=== PATIENT | female | born 1940 | race Caucasian/White ===

== ENCOUNTER 2022-05-12 10:33 | Outpatient (CLI) | payer MEDICARE, BC, SELFPAY ==
[2022-05-12 22:15] LABS: Creatinine Urine 85.5 mg/dL
[2022-05-12 22:17] LABS: Albumin* 4.4 g/dL (3.3-5.0)
[2022-05-12 22:18] LABS: Chloride* 105 mmol/L (96-114); Microalbumin Creatinine Ratio 10 mg/g (0-30); Microalbumin Urine < 1 mg/dL; Potassium* 4.8 mmol/L (3.6-5.1); Sodium* 139 mmol/L (135-149)
[2022-05-12 22:20] LABS: Bilirubin Total* 0.6 mg/dL (0.1-1.5); Carbon Dioxide* 23 mmol/L (20-32); Cholesterol* 208 mg/dL (90-199); Creatinine* 0.8 mg/dL (0.5-1.5); Estimated Glomerular Filt Rate 75 ml/min
[2022-05-12 22:21] LABS: Alanine Aminotransferase* 51 U/L (4-35); Alkaline Phosphatase* 85 U/L (40-150); Aspartate Amino Transferase* 65 U/L (12-35); Blood Urea Nitrogen* 12 mg/dL (7-30); Calcium* 9.3 mg/dL (8.4-10.6); Glucose* 81 mg/dL (60-115); Magnesium* 1.3 mg/dL (1.5-2.6); Triglycerides* 154 mg/dL (40-149)
[2022-05-12 22:22] LABS: HDL Cholesterol* 67 mg/dL (>=50); LDL Cholesterol Calculated 110 mg/dL (<100)
[2022-05-12 23:18] LABS: Vitamin B12* 428 pg/mL (243-894)
[2022-05-12 23:59] LABS: Free T4 Free Thyroxine* 0.91 ng/dL (0.70-1.85)
== END 2022-05-12 10:34 | disposition home or self-care (01) ==
PROVIDERS: PCP Family Medicine; Visit Provider Family Medicine
DX: R42 Dizziness and giddiness (principal); E78.5 Hyperlipidemia, unspecified; F19.90 Other psychoactive substance use, unspecified, uncomplicated; I10 Essential (primary) hypertension; R41.82 Altered mental status, unspecified; R79.0 Abnormal level of blood mineral; R53.83 Other fatigue; R73.03 Prediabetes
CPT/HCPCS: 80053; 80061; 82043; 82570; 82607; 83735; 84439; 84443

== ENCOUNTER 2022-05-24 16:56 | Outpatient (CLI) | payer MEDICARE, BC, SELFPAY ==
--- NOTE | 2022-05-24 17:00 | CRLHL7_ITS ---
For Patients: As a result of the Century Cures Act, medical imaging exams and procedure reports are released immediately into your electronic medical record. You may view this report before your referring provider. If you have questions, please contact your health care provider. CLINICAL HISTORY: VERTIGO TECHNIQUE: The carotid circulations and the vertebral arteries in the neck were examined with kilgore-scale ultrasound, color-flow and Doppler spectral analysis. Degrees of stenosis were determined using SRU 2002 Consensus Panel Criteria. FINDINGS: Sonographic images demonstrate mild bilateral atherosclerotic plaque formation without suspicious soft tissue mass. There was antegrade blood flow demonstrated within the vertebral arteries and the subclavian arteries demonstrated a normal triphasic waveform. The spectral Doppler tracings of the common carotid, internal and external carotid arteries demonstrate no abnormal turbulence or spectral broadening. There was no significant elevation of peak systolic blood flow which would indicate a hemodynamically-significant stenosis by SRU criteria. The ICA/CCA peak systolic velocity ratio measures 1.7 on the right and 0.9 on the left. IMPRESSION: Less than 50 percent stenosis of the internal carotid arteries bilaterally. Dictated by Schuyler Mancuso MD @ 05/26/2022 8:52:47 AM (Electronically Signed)
--- NOTE | 2022-05-24 18:00 | CRLHL7_ITS ---
For Patients: As a result of the Century Cures Act, medical imaging exams and procedure reports are released immediately into your electronic medical record. You may view this report before your referring provider. If you have questions, please contact your health care provider. INDICATION: Altered mental status. TECHNIQUE: Noncontrast CT images acquired through the brain. COMPARISON: CT brain 05/02/2020. FINDINGS: Prominence of the ventricles and sulci compatible with [id number] diffuse cerebral volume loss. There is mild cerebellar volume loss. No mass effect or midline shift. The kilgore-white differentiation is maintained. No acute intracranial hemorrhage or pathologic extra-axial fluid collection. Scattered hypoattenuation in the supratentorial white matter, suggestive of mild chronic microvascular ischemic changes. Intracranial atherosclerotic calcifications. The globes are symmetric. Mucosal thickening and air-fluid level severely opacify the left maxillary sinus. There is left maxillary sinus mucoperiosteal wall thickening. Mild to moderate mucosal thickening in the visualized right maxillary sinus. The mastoid air cells are clear. IMPRESSION: 1. No acute intracranial hemorrhage or mass effect. 2. Air-fluid level and mucosal thickening severely opacify the left maxillary sinus and raise the possibility of acute sinusitis. There is also sequelae of chronic left maxillary sinusitis. Please note that all CT scans at this facility use dose modulation, iterative reconstruction, and/or weight-based dosing when appropriate to reduce radiation dose to as low as reasonably achievable. Dictated by Fredis Mohr MD @ 05/24/2022 5:57:24 PM (Electronically Signed)
== END 2022-05-24 16:57 | disposition home or self-care (01) ==
LOC: US 16:57
PROVIDERS: PCP Family Medicine; Visit Provider Family Medicine
DX: R42 Dizziness and giddiness (principal); I65.23 Occlusion and stenosis of bilateral carotid arteries; R41.82 Altered mental status, unspecified; J32.0 Chronic maxillary sinusitis
CPT/HCPCS: 70450; 93880

== ENCOUNTER 2022-09-15 11:16 | Outpatient (CLI) | payer MEDICARE, BC, SELFPAY | END 2022-09-15 11:17 | disposition home or self-care (01) | PROVIDERS: PCP Family Medicine; Visit Provider Family Medicine | DX: Z00.00 Encounter for general adult medical examination without abnormal findings (principal); R73.03 Prediabetes; I10 Essential (primary) hypertension; E78.5 Hyperlipidemia, unspecified; F41.9 Anxiety disorder, unspecified; Z01.818 Encounter for other preprocedural examination | CPT/HCPCS: 80053; 83735; 84439; 84443 ==

== ENCOUNTER 2023-02-01 09:27 | Outpatient (CLI) | payer MEDICARE, BC, SELFPAY | END 2023-02-01 09:28 | disposition home or self-care (01) | PROVIDERS: PCP Family Medicine; Visit Provider Family Medicine | DX: F19.90 Other psychoactive substance use, unspecified, uncomplicated (principal); R63.4 Abnormal weight loss; I10 Essential (primary) hypertension; M79.609 Pain in unspecified limb; E78.5 Hyperlipidemia, unspecified; R79.0 Abnormal level of blood mineral | CPT/HCPCS: 80053; 83735; 83880; 84425; 87086 ==

== ENCOUNTER 2023-02-01 14:28 | Outpatient (CLI) | payer MEDICARE, BC, SELFPAY ==
--- NOTE | 2023-02-01 15:00 | CRLHL7_ITS ---
For Patients: As a result of the Century Cures Act, medical imaging exams and procedure reports are released immediately into your electronic medical record. You may view this report before your referring provider. If you have questions, please contact your health care provider. INDICATION: REDNESS AND PAIN COMPARISON: none TECHNIQUE: A compression venous ultrasound exam was performed of both lower extremities using kilgore scale imaging, color Doppler and spectral Doppler analysis. FINDINGS: Sonographic imaging of the lower extremities demonstrates normal compressibility and color Doppler venous blood flow within the common femoral, deep femoral, and there is no superficial clot. Within the thighs the femoral veins are patent and compressible. At a lower level the popliteal and posterior tibial veins also show normal compressibility and color Doppler venous blood flow. IMPRESSION: No evidence of deep vein thrombosis within either the left or right lower extremity. Dictated by Schuyler Mancuso MD @ 02/02/2023 8:10:27 AM (Electronically Signed)
== END 2023-02-01 14:29 | disposition home or self-care (01) ==
PROVIDERS: PCP Family Medicine; Visit Provider Family Medicine
DX: M79.89 Other specified soft tissue disorders (principal); I10 Essential (primary) hypertension; N39.0 Urinary tract infection, site not specified; E66.01 Morbid (severe) obesity due to excess calories; R73.03 Prediabetes
CPT/HCPCS: 80053; 83735; 83880; 84425; 87086; 93970

== ENCOUNTER 2023-02-27 12:52 | Outpatient (CLI) | payer MEDICARE, BC, SELFPAY | END 2023-02-27 12:53 | disposition home or self-care (01) | LOC: US 12:53 | PROVIDERS: PCP Family Medicine; Visit Provider Family Medicine | DX: M79.89 Other specified soft tissue disorders (principal) | CPT/HCPCS: 93924 ==

== ENCOUNTER 2023-03-16 11:16 | Outpatient (CLI) | payer MEDICARE, BC, SELFPAY | END 2023-03-16 11:17 | disposition home or self-care (01) | PROVIDERS: PCP Family Medicine; Visit Provider Family Medicine | DX: R63.4 Abnormal weight loss (principal); I10 Essential (primary) hypertension; I87.2 Venous insufficiency (chronic) (peripheral); I73.00 Raynaud's syndrome without gangrene; Z13.0 Encounter for screening for diseases of the blood and blood-forming organs and certain disorders involving the immune mechanism; F10.90 Alcohol use, unspecified, uncomplicated; F41.9 Anxiety disorder, unspecified | CPT/HCPCS: 82728; 85610 ==

== ENCOUNTER 2023-06-08 13:00 | Outpatient (CLI) | payer MEDICARE, BC, SELFPAY | END 2023-06-08 13:01 | disposition home or self-care (01) | LOC: NFLDREF 06-09 07:50 | PROVIDERS: PCP Family Medicine; Referring Provider Family Medicine; Visit Provider Family Medicine | DX: R79.89 Other specified abnormal findings of blood chemistry (principal); R63.4 Abnormal weight loss; E03.9 Hypothyroidism, unspecified; I10 Essential (primary) hypertension | CPT/HCPCS: 80053; 82043; 82570; 82728; 84439; 84443 ==

== ENCOUNTER 2023-10-22 12:07 | Inpatient (IN) | payer MEDICARE, BC, SELFPAY ==
[2023-10-22] VITALS (24 sets, daily range): BP systolic 86–108; BP diastolic 47–80; PULSE 71–82; RESP 16–22; TEMP 36.2–37.4; O2SAT 93–99; BMI 19.1; BMI 20.2
--- NOTE | 2023-10-22 12:35 | ED_ITS ---
HPI - General Adult General Chief complaint: Weakness Stated complaint: Elevated WBC, low BP Time Seen by Provider: 10/22/23 12:12 History of Present Illness HPI narrative: Patient is a 82 year white female who has had 3 day history of night sweats, was seen in the clinic today and had positive urinalysis and white count is in the 14,000 range. She lives independently in [place], has doctor within [facility] in [place]. She has had UTIs in the past, but does not have any urinary frequency or hematuria. She does not have any severe back pain but she has reported night sweats and severe weakness. Her family members that she lives near are traveling this week. She has had UTIs in the past. She has no cough. Her chart is reviewed. Related Data Home Medications ?Medication ?Instructions ?Recorded ?Confirmed atenolol 25 mg tablet 25 mg PO DAILY 10/22/23 10/22/23 spironolactone 25 mg tablet 25 mg PO DAILY 10/22/23 10/22/23 vitamin B complex-folic acid 0.4 1 tab PO DAILY 10/22/23 10/22/23 mg tablet (B Complex 1 (with folic acid)) Previous Rx's ?Medication ?Instructions ?Recorded food supplemt, lactose-reduced 1 ea PO TID #5,688 mL 02/01/23 (Ensure Active Protein-Muscle oral liquid) gemfibrozil 600 mg tablet 600 mg PO DAILY #90 tabs 05/29/23 omeprazole 40 mg capsule,delayed 40 mg PO DAILY #90 caps 05/29/23 release Allergies Allergy/AdvReac Type Severity Reaction Status Date / Time fenofibrate Allergy Intermediate elevated Verified 10/22/23 10:07 transaminases potassium chloride Allergy Intermediate pruritis Verified 10/22/23 10:07 cefdinir Allergy Unknown decreased Verified 10/22/23 10:07 appetite, weight loss, diarrhea losartan AdvReac Intermediate pruritis Verified 10/22/23 10:07 Sulfamethoxazole / AdvReac Unknown nausea and Uncoded 10/22/23 10:07 trimethoprim vomiting Review of Systems Status of ROS: Reports: 6 or more systems reviewed and unremarkable except as noted in History and below [facility] Medical History History of gout ?Z87.39 - Personal history of other diseases of the musculoskeletal system and connective tissue (ICD-10) History of colonic polyps (03/18/13) ?Z86.010 - Personal history of colonic polyps (ICD-10) Surgical History History of wisdom tooth extraction (03/18/13) ?K08.409 - Partial loss of teeth, unspecified cause, unspecified class (ICD- 10) History of hysterectomy (03/18/13) ?Z90.710 - Acquired absence of both cervix and uterus (ICD-10) History of appendectomy (03/18/13) ?Z90.49 - Acquired absence of other specified parts of digestive tract (ICD- 10) Family History Mother Breast cancer, Onset Age: 80 Daughter Breast cancer Father Myocardial infarction, Onset Age: 60 Other Empyema Social History Narrative: does not use illicit drugs former smoker occasional alcohol consumption What is your current living situation?: I presently have a place to live Problems where you live: no known problems In the past 12 mos, have been you worried that your food would run out before you had money to buy more?: never true In the past 12 mos, the food you bought just didn't last and you didn't have money to buy more?: never true Smoking Status: Never smoker How often does anyone, including family, friends and others, physically hurt you : How often does anyone, including family, friends and others, insult or talk down to you: How often does anyone, including family, friends and others, threaten you with harm: How often does anyone, including family, friends and others, scream or curse at you: Little interest or pleasure in doing things: not at all Feeling down, depressed, or hopeless: several days Exam Narrative: Exam Narrative: Objective: Patient has a lower systolic blood pressure but her pulse is in the 80 range respiratory rate normal and she is afebrile. Her O2 sat is 98% on room air. HEENT is unremarkable other than dry mucous membranes in the mouth she is alert orient x3 noncyanotic she does appear quite weak Neck is supple Chest clear Heart rhythm regular 2 a systolic murmur murmur occasional ectopic beat noted Abdomen benign soft nontender Negative CVA tenderness Patient is very weak to try and set up I had to help her quite a bit Extremities are no edema, she does have discoloration or lower extremities consistent with vascular type stasis but no edema. Neurologic grossly nonfocal Const: Vital Signs, click to edit/add: Vital Signs - 24 hr 10/22/23 12:13 10/22/23 12:32 10/22/23 12:50 Temperature 97.1 F L Pulse Rate 80 80 Pulse Rate [Pulse Oximeter] 80 Respiratory Rate 16 Blood Pressure Blood Pressure [Ri ght Upper Arm] 92/53 L Pulse Oximetry 98 99 96 Oxygen Delivery Me thod Room Air 10/22/23 13:00 10/22/23 13:30 10/22/23 13:50 Temperature Pulse Rate 77 78 77 Pulse Rate [Pulse Oximeter] Respiratory Rate Blood Pressure 94/48 L Blood Pressure [Ri ght Upper Arm] Pulse Oximetry 95 94 96 Oxygen Delivery Me thod 10/22/23 14:00 10/22/23 14:02 10/22/23 14:03 Temperature Pulse Rate 77 76 77 Pulse Rate [Pulse Oximeter] Respiratory Rate Blood Pressure 94/51 L Blood Pressure [Ri ght Upper Arm] Pulse Oximetry 94 94 93 Oxygen Delivery Me thod Course Vital Signs Vital signs: Initial Vital Signs Temperature 97.1 F L 10/22/23 12:13 Temperature Source Temporal Artery Scan 10/22/23 12:13 Pulse Rate 80 10/22/23 12:13 Respiratory Rate 16 10/22/23 12:13 Blood Pressure 92/53 L 10/22/23 12:13 Blood Pressure Mean 66 L 10/22/23 12:13 Blood Pressure Position Sitting 10/22/23 12:13 Pulse Oximetry 98 10/22/23 12:13 Oxygen Delivery Method Room Air 10/22/23 12:13 Vital Signs Temperature 97.1 F L 10/22/23 12:13 Pulse Rate 80 10/22/23 12:13 Respiratory Rate 16 10/22/23 12:13 Blood Pressure 92/53 L 10/22/23 12:13 Pulse Oximetry 98 10/22/23 12:13 Oxygen Delivery Method Room Air 10/22/23 12:13 Temperature 97.1 F L 10/22/23 12:13 Pulse Rate 77 10/22/23 14:03 Respiratory Rate 16 10/22/23 12:13 Blood Pressure 94/51 L 10/22/23 14:02 Pulse Oximetry 93 10/22/23 14:03 Oxygen Delivery Method Room Air 10/22/23 12:13 Medications Administered Medications: Discontinued Medications Generic Name Dose Route Start Last Admin Trade Name Pillo PRN Reason Stop Dose Admin Sodium Chloride 500 mls @ 500 mls/hr 10/22/23 12:32 10/22/23 13:45 0.9 % Sodium Chloride 500 Ml IV 10/22/23 13:31 Infused .Q1H ONE Infusion Piperacillin Sod/Tazobactam 100 mls @ 200 mls/hr 10/22/23 12:32 10/22/23 13:50 Sod 3.375 gm/ Sodium Chloride IVPB 10/22/23 12:33 200 mls/hr ONCE ONE Administration Sodium Chloride 500 mls @ 500 mls/hr 10/22/23 12:58 10/22/23 13:50 0.9 % Sodium Chloride 500 Ml IV 10/22/23 13:57 Infused .Q1H ONE Infusion Medical Decision Making [facility] Narrative Medical decision making narrative: [age] year white female with a history of several days of night sweats and chills with a positive urinalysis. She does not have flank pain presently she does not tachycardic and does not have a fever, but her blood pressures 90 systolic. I do not think she needs full sepsis treatment but I would do IV fluid, IV antibiotic in the form of Zosyn, she has a cephalosporin allergy, and will check labs electrolytes blood cultures she has a urine and urinalysis done from the clinic. She will need admission the hospital given her weakness. May need physical therapy assessment prior to discharge. Will discuss with the hospitalist. Patient certainly could have possible sepsis with urine being a source of infection. But this point does not appear to be a septic situation but would treat with antibiotics and perhaps less than the full bolus of fluid given her age and health situation Lab Data Labs: Lab Results 10/22/23 10/22/23 Range/Units 12:50 13:08 WBC 15.76 H (4.50-11.00) K/uL RBC 3.40 L (4.00-5.20) m/uL Hgb 11.9 L (12.0-16.0) gm/dL Hct 33.1 (33.0-51.0) % MCV 97 (80-100) fL MCH 35 H (26-34) pg MCHC 36 (32-36) gm/dL RDW Coeff of Michelle 12.1 (11.5-15.5) % Plt Count 101 L (140-440) K/uL Neut % (Auto) 92.8 H (42.0-72.0) % Lymph % (Auto) 1.6 L (20-44) % [place] % (Auto) 5.1 (0.0-11.0) % Eos % (Auto) 0.0 (0.0-7.0) % Baso % (Auto) 0.1 (0.0-3.0) % Neut # (Auto) 14.60 H (1.7-7.0) K/uL Lymph # (Auto) 0.30 L (0.90-2.90) K/uL [place] # (Auto) 0.80 (0.00-0.90) K/UL Eos # (Auto) 0.00 (0.00-0.50) K/uL Baso # (Auto) 0.00 (0.00-0.30) K/uL Abs Immat Gran (auto) 0.10 (0.00-0.30) K/uL Imm/Tot Granulo (auto) 0.4 % Sodium 127 L (135-149) mmol/L Potassium 3.6 (3.6-5.1) mmol/L Chloride 96 (96-114) mmol/L Carbon Dioxide 16 L (20-32) mmol/L Anion Gap 15 (7-15) mEq/L BUN 44 H (7-30) mg/dL Creatinine 1.4 (0.5-1.5) mg/dL Estimated Creat Clear 26.39 Estimated GFR 38 ml/min Glucose 152 H (60-115) mg/dL Lactate 2.3 H (0.5-1.9) mmol/L Calcium 9.1 (8.4-10.6) mg/dL Total Bilirubin 1.0 (0.1-1.5) mg/dL Direct Bilirubin 0.5 (0.0-0.5) mg/dL AST 78 H (12-35) U/L ALT 47 H (4-35) U/L Alkaline Phosphatase 59 (40-150) U/L C-Reactive Protein 14.4 H (0.5-1.0) mg/dL Total Protein 6.8 (6.0-8.3) g/dL Albumin 4.3 (3.3-5.0) g/dL Discharge Plan Discharge Clinical Impression: Urinary tract infection, Weakness Patient Disposition: Admitted As Observation
[2023-10-22 13:01] LABS: Basophils Percent Auto 0.1 % (0.0-3.0); Hematocrit 33.1 % (33.0-51.0); Hemoglobin* 11.9 gm/dL (12.0-16.0); Immature Granulocytes Pct Auto 0.4 %; Lymphocytes Percent Auto 1.6 % (20-44); Mean Corpuscular HGB Conc 36 gm/dL (32-36); Mean Corpuscular Hemoglobin 35 pg (26-34); Mean Corpuscular Volume 97 fL (80-100); Monocytes Percent Auto 5.1 % (0.0-11.0); Neutrophils Percent Auto 92.8 % (42.0-72.0); Platelet Count* 101 K/uL (140-440); RDW Coefficient of Variation % 12.1 % (11.5-15.5); White Blood Count* 15.76 K/uL (4.50-11.00)
[2023-10-22] MEDS: 0.9 % SODIUM CHLORIDE 500 ML 500 ML IV ×2 (13:10→13:15)
[2023-10-22 13:14] LABS: Lactate* 2.3 mmol/L (0.5-1.9)
[2023-10-22 13:18] LABS: Slide Review Reflex No
[2023-10-22 13:19] LABS: Chloride* 96 mmol/L (96-114); Potassium* 3.6 mmol/L (3.6-5.1); Sodium* 127 mmol/L (135-149)
[2023-10-22 13:21] LABS: Albumin* 4.3 g/dL (3.3-5.0)
[2023-10-22 13:22] LABS: Creatinine* 1.4 mg/dL (0.5-1.5); Est. Creatinine Clearance* 26.39; Estimated Glomerular Filt Rate 38 ml/min
[2023-10-22 13:23] LABS: Anion Gap 15 mEq/L (7-15); Aspartate Amino Transferase* 78 U/L (12-35); Bilirubin Direct* 0.5 mg/dL (0.0-0.5); Blood Urea Nitrogen* 44 mg/dL (7-30); Calcium* 9.1 mg/dL (8.4-10.6); Carbon Dioxide* 16 mmol/L (20-32); Glucose* 152 mg/dL (60-115); Total Protein* 6.8 g/dL (6.0-8.3)
[2023-10-22 13:24] LABS: Alanine Aminotransferase* 47 U/L (4-35); Alkaline Phosphatase* 59 U/L (40-150)
[2023-10-22 13:37] LABS: C Reactive Protein* 14.4 mg/dL (0.5-1.0)
[2023-10-22] MEDS: PIPERACILLIN/TAZOBACTAM 3.375 GM in 0.9 % SODIUM CHLORIDE Mini-bag 100 ML IVPB (13:50)
--- NOTE | 2023-10-22 14:48 | P.IMHP_ITS ---
Hospitalist- H&P: HPI History of Present Illness Date Seen: 10/22/23 Chief complaint: Elevated WBC, low BP Narrative: ADMISSION HISTORY AND PHYSICAL - HOSPITALIST Chief Complaint: Weakness, chills HPI: Tray is an 82-year-old white female who presents from urgent care to our ER for 3 days of an acute illness. She said it started with an acute vomiting and diarrhea episode. This was 3 days prior to presentation. She felt weak and exhausted. Initially she thought it was from left over center Fridge. However in the next 2 days she continued to have chills and weakness. No fever. No blood in her stool or vomit. No rash. No recent travel. No sick contacts. This morning she presented to urgent care and was noted to have an acute UTI with an elevated white blood cell count and low blood pressure. She was then sent to the ER. ER COURSE: Fluids, antibiotics, labs. Outlined below. Hospital medicine was asked to admit for early sepsis, urinary source, weakness, advanced age. CODE STATUS: FULL CODE EMERGENCY CONTACT PLAN: Name Mariama Gallardo Rel To Pat Daughter I've updated the PFSH, medications and allergies in the Expanse tabs. INVESTIGATIONS: LABS/MICRO/ECG/IMAGING Hypotensive, presenting blood pressure 82/49 and 94/51. Map is now 65. She has had 2 500 mL boluses Afebrile Respiratory rate 18 Pulse ox 93-94% on room air Weight 55.1 kilos CBC reflects a white blood cell count of 15.76, 92.8% neutrophils Hemoglobin 11.9, her baseline seems to be 12-13 Platelets 101, previously 215 Mild hyponatremia at 1:27 a.m.. Creatinine has bumped from 0.8-1.4. Her BUN is 44. She is mildly acidotic at 16 Lactic acid 2.3 CRP 14.4 Mild bump in her LFTs which are not new. UA is cloudy. 2+ protein, 1+ blood. 1+ bilirubin. Negative nitrite, however 3+ leukocyte esterase micro hematuria. Greater than 100 white blood cells per high-power field noted. Moderate bacteria. Negative respiratory swab Blood culture x2, urine culture all pending. No imaging prior to arrival on the floor. REVIEW OF SYSTEMS: 12-point ROS completed with patient and negative unless otherwise stated in HPI or below. PHYSICAL EXAM: CONSTITUTIONAL: Conversive, good historian. Good insight. No evidence of cognitive impairment. VITAL SIGNS: see record. HEENT: Normocephalic, atraumatic. PERRL, EOMI, conjunctivae pink, no scleral icterus. Ears and nose externally normal. Pharynx normal. NECK: No JVD. No carotid bruit, no thyromegaly, no adenopathy. CHEST: Clear to auscultation bilaterally HEART: S1 and S2 normal. No harsh murmurs. No edema. MUSCULOSKELETAL: No gross joint deformity or swelling. NEURO: Cranial nerves intact. Grossly intact. No asymmetric findings. SKIN: No rashes, petechiae, concerning changes PSYCHIATRIC: Euthymic. ADMIT TO MEDSURG: FLOOR CARE DVT: Lovenox GI: PO intake Time spent: Today I spent 75 minutes seeing the patient, discussing the patient with ER staff, reviewing Expanse and EPIC notes/diagnostics, discussing the care plan with our care time that includes social work, PT/OT, pharmacy, RT, longterm and documenting my impressions and plan in the medical record. [facility] Medical History (Updated 10/22/23 @ 15:59 by Fransisca Mott MD) Venous stasis dermatitis of both lower extremities ?I87.2 - Venous insufficiency (chronic) (peripheral) (ICD-10) Raynaud's phenomenon ?I73.00 - Raynaud's syndrome without gangrene (ICD-10) Prediabetes ?R73.03 - Prediabetes (ICD-10) Osteopenia ?M85.80 - Other specified disorders of bone density and structure, unspecified site (ICD-10) Mass of vulva ?N90.89 - Other specified noninflammatory disorders of vulva and perineum (ICD-10) Compression fracture of T6 vertebra ?S22.050A - Wedge compression fracture of T5-T6 vertebra, initial encounter for closed fracture (ICD-10) Calculus of kidney ?N20.0 - Calculus of kidney (ICD-10) Basal cell carcinoma (BCC) ?C44.91 - Basal cell carcinoma of skin, unspecified (ICD-10) Atherosclerosis of abdominal aorta ?I70.0 - Atherosclerosis of aorta (ICD-10) History of gout ?Z87.39 - Personal history of other diseases of the musculoskeletal system and connective tissue (ICD-10) History of colonic polyps (03/18/13) ?Z86.010 - Personal history of colonic polyps (ICD-10) Surgical History History of wisdom tooth extraction (03/18/13) ?K08.409 - Partial loss of teeth, unspecified cause, unspecified class (ICD-1 0) History of hysterectomy (03/18/13) ?Z90.710 - Acquired absence of both cervix and uterus (ICD-10) History of appendectomy (03/18/13) ?Z90.49 - Acquired absence of other specified parts of digestive tract (ICD- 10) Family History Mother Breast cancer, Onset Age: 80 Daughter Breast cancer Father Myocardial infarction, Onset Age: 60 Other Empyema Social History Narrative: does not use illicit drugs former smoker occasional alcohol consumption What is your current living situation?: I presently have a place to live Problems where you live: no known problems In the past 12 mos, have been you worried that your food would run out before you had money to buy more?: never true In the past 12 mos, the food you bought just didn't last and you didn't have money to buy more?: never true Smoking Status: Never smoker How often does anyone, including family, friends and others, physically hurt you : How often does anyone, including family, friends and others, insult or talk down to you: How often does anyone, including family, friends and others, threaten you with harm: How often does anyone, including family, friends and others, scream or curse at you: Little interest or pleasure in doing things: not at all Feeling down, depressed, or hopeless: several days Meds Home Medications and Allergies Home Medications ?Medication ?Instructions ?Recorded ?Confirmed ?Type atenolol 25 mg tablet 25 mg PO DAILY 10/22/23 10/22/23 History spironolactone 25 mg tablet 25 mg PO DAILY 10/22/23 10/22/23 History vitamin B complex-folic acid 0.4 1 tab PO DAILY 10/22/23 10/22/23 History mg tablet (B Complex 1 (with folic acid)) Allergies Allergy/AdvReac Type Severity Reaction Status Date / Time fenofibrate Allergy Intermediate elevated Verified 10/22/23 10:07 transaminases potassium chloride Allergy Intermediate pruritis Verified 10/22/23 10:07 cefdinir Allergy Unknown decreased Verified 10/22/23 10:07 appetite, weight loss, diarrhea losartan AdvReac Intermediate pruritis Verified 10/22/23 10:07 Sulfamethoxazole / AdvReac Unknown nausea and Uncoded 10/22/23 10:07 trimethoprim vomiting Exam Const: Vital Signs, click to edit/add: Vital Signs - 24 hr 10/22/23 12:13 10/22/23 12:32 10/22/23 12:50 Temperature 97.1 F L Pulse Rate 80 80 Pulse Rate [Left R adial] Pulse Rate [Pulse Oximeter] 80 Respiratory Rate 16 Blood Pressure Blood Pressure [Ri ght Arm] Blood Pressure [Ri ght Upper Arm] 92/53 L Pulse Oximetry 98 99 96 Oxygen Delivery Me thod Room Air 10/22/23 13:00 10/22/23 13:30 10/22/23 13:50 Temperature Pulse Rate 77 78 77 Pulse Rate [Left R adial] Pulse Rate [Pulse Oximeter] Respiratory Rate Blood Pressure 94/48 L Blood Pressure [Ri ght Arm] Blood Pressure [Ri ght Upper Arm] Pulse Oximetry 95 94 96 Oxygen Delivery Me thod 10/22/23 14:00 10/22/23 14:02 10/22/23 14:03 Temperature Pulse Rate 77 76 77 Pulse Rate [Left R adial] Pulse Rate [Pulse Oximeter] Respiratory Rate Blood Pressure 94/51 L Blood Pressure [Ri ght Arm] Blood Pressure [Ri ght Upper Arm] Pulse Oximetry 94 94 93 Oxygen Delivery Me od 10/22/23 14:32 Temperature 97.7 F Pulse Rate Pulse Rate [Left R adial] 76 Pulse Rate [Pulse Oximeter] Respiratory Rate 18 Blood Pressure Blood Pressure [Ri ght Arm] 99/56 L Blood Pressure [Ri ght Upper Arm] Pulse Oximetry 93 Oxygen Delivery Me thod Room Air Hospitalist - H&P: Result Labs Labs: Short CBC 10/22/23 Range/Units 12:50 WBC 15.76 H (4.50-11.00) K/uL Hgb 11.9 L (12.0-16.0) gm/dL Hct 33.1 (33.0-51.0) % Plt Count 101 L (140-440) K/uL BMP 10/22/23 12:50 Sodium 127 L Potassium 3.6 Chloride 96 Carbon Dioxide 16 L BUN 44 H Creatinine 1.4 Glucose 152 H Calcium 9.1 Liver Function 10/22/23 Range/Units 12:50 Total Bilirubin 1.0 (0.1-1.5) mg/dL Direct Bilirubin 0.5 (0.0-0.5) mg/dL AST 78 H (12-35) U/L ALT 47 H (4-35) U/L Alkaline Phosphatase 59 (40-150) U/L Albumin 4.3 (3.3-5.0) g/dL Assessment and Plan Assessment and plan (1) Sepsis: Problem comment: While the vitals only met one criteria for sepsis (blood pressure), the UTI with a MAP <65, elevated lactate, low platelets all indicate sepsis. -IV abx, fluids, q30 min blood pressures w/close monitoring. Status: Acute (2) Weakness: Problem comment: assoc with acute infection. Status: Acute (3) Urinary tract infection: Problem comment: UA indicates infection Culture both blood and urine pending Status: Acute (4) Weight loss, non-intentional: Status: Acute (5) Alcohol use disorder: Problem comment: daily wine drinking >2 glasses Status: Acute (6) Recurrent urinary tract infection: Status: Acute (7) Hypertension: Problem comment: hold atenolol and cozaar until sepsis clears Status: Acute (8) Hyperlipidemia: Problem comment: statin and lopid - ok to continue Status: Acute (9) Gastroesophageal reflux disease: Problem comment: continue PPI Status: Acute (10) Anxiety: Problem comment: monitor; no meds Status: Acute
--- NOTE | 2023-10-22 15:20 | CRLHL7_ITS ---
For Patients: As a result of the Century Cures Act, medical imaging exams and procedure reports are released immediately into your electronic medical record. You may view this report before your referring provider. If you have questions, please contact your health care provider. Indication Sepsis Technique One view(s) of the chest Comparison None Findings The cardiomediastinal silhouette and pulmonary vasculature are unremarkable. There is no focal airspace consolidation, pleural effusion, or pneumothorax. No displaced fractures. Impression No acute cardiopulmonary process. Dictated by Quincy Maier MD @ 10/22/2023 4:03:01 PM (Electronically Signed)
[2023-10-22 15:41] LABS: INR 1.04 (0.91-1.10); Prothrombin Time 14.2 Seconds
[2023-10-22 15:42] LABS: Magnesium* 1.3 mg/dL (1.5-2.6)
[2023-10-22 15:55] LABS: HCO3 VBG 19 mmol/L (21-28); PCO2 VBG 33 mmHG (40-50); PO2 VBG < 30.1 mmHG (25-47); pH VBG 7.357 (7.32-7.43)
[2023-10-22 16:07] LABS: Lactate* 1.4 mmol/L (0.5-1.9)
[2023-10-22 16:31] LABS: Troponin I* 0.02 ng/mL (0.01-0.04)
[2023-10-22] MEDS: ENOXAPARIN 30 MG/0.3ML INJ SUBCUT (16:52)
[2023-10-22] MEDS: MAGNESIUM IV 4 GM/100 ML PIGGYBACK IVPB (16:52)
[2023-10-22] MEDS: LACTATED RINGERS 1000 ML 1,000 ML 125 ML IV (17:16)
[2023-10-22] MEDS: LACTOBACILLUS ACIDOPHILUS 1 TABLET 1 TAB PO (17:31)
--- NOTE | 2023-10-22 18:28 | PC.NURSE ---
admit. pt is pleasant and alert x4. no pain. she has been nauseated and vomiting. chills. she has a UTI. BP are low and IV fluids and antibiotics given. she is getting IV magnesium, she is up with SBA. IV is patent. she is eating, drinking and voiding. she has a brief on. no nausea since admission. will monitor/
[2023-10-23] MEDS: LACTATED RINGERS 1000 ML 1,000 ML 125 ML IV (02:13)
[2023-10-23] MEDS: SODIUM CHLORIDE 0.9 % (FLUSH) 10 ML SYRINGE 5 ML IVF (03:25)
[2023-10-23 03:31] VITALS: BP 108/74; PULSE 75; RESP 16; TEMP 36.6; O2SAT 94
[2023-10-23 06:30] LABS: HCO3 VBG 20 mmol/L (21-28); PCO2 VBG 32 mmHG (40-50); PO2 VBG 45.2 mmHG (25-47); pH VBG 7.402 (7.32-7.43)
[2023-10-23 06:38] LABS: Hematocrit 28.1 % (33.0-51.0); Hemoglobin* 10.1 gm/dL (12.0-16.0); Mean Corpuscular HGB Conc 36 gm/dL (32-36); Mean Corpuscular Hemoglobin 35 pg (26-34); Mean Corpuscular Volume 97 fL (80-100); Platelet Count* 86 K/uL (140-440); Red Blood Count 2.89 m/uL (4.00-5.20); White Blood Count* 7.73 K/uL (4.50-11.00)
--- NOTE | 2023-10-23 06:38 | PC.NURSE ---
End of shift note [id number]: Pt has been afebrile throughout the shift and on RA with O2 sats of 98% and 94%. B/Ps of 100/61 and 108/74 throughout the night. Pt denying pain when asked. Pt transfers/ambulates with assist of 1 using FWW and gait belt though is weak and unsteady when transferring/ambulating. No N/V noted this shift. IV to L AC patent with LR running at 125 mL/hr. She was continent of bladder this shift. No confusion noted throughout the shift. ?
[2023-10-23 06:41] LABS: Slide Review Reflex No
[2023-10-23 06:51] LABS: Albumin* 3.2 g/dL (3.3-5.0); Chloride* 106 mmol/L (96-114); Sodium* 133 mmol/L (135-149)
[2023-10-23 06:54] LABS: Est. Creatinine Clearance* 38.68; Estimated Glomerular Filt Rate 57 ml/min
[2023-10-23 06:55] LABS: Anion Gap 7 mEq/L (7-15); Blood Urea Nitrogen* 36 mg/dL (7-30); Calcium* 7.9 mg/dL (8.4-10.6); Carbon Dioxide* 20 mmol/L (20-32); Glucose* 98 mg/dL (60-115); Phosphorus* 2.9 mg/dL (2.5-4.5)
[2023-10-23 07:00] VITALS: BP 107/64; PULSE 71; PULSE 73; RESP 16; TEMP 36.9; O2SAT 94
[2023-10-23 07:14] LABS: C Reactive Protein* 14.7 mg/dL (0.5-1.0)
[2023-10-23] MEDS: OMEPRAZOLE 20 MG CAPSULE DR 40 MG PO (08:32)
[2023-10-23] MEDS: POTASSIUM CHLORIDE 10 MEQ CAPSULE ER 40 MEQ PO (08:32)
[2023-10-23] MEDS: LACTOBACILLUS ACIDOPHILUS 1 TABLET 1 TAB PO ×2 (08:32→14:55)
[2023-10-23 08:44] LABS: Magnesium* 2.2 mg/dL (1.5-2.6)
--- NOTE | 2023-10-23 10:09 | P.IMPN_ITS ---
Progress Note: A&P Assessment and plan (1) Sepsis: Problem details: While the vitals only met one criteria for sepsis (blood pressure), the UTI with a MAP <65, elevated lactate, low platelets all indicate sepsis. -IV abx, fluids, q30 min blood pressures w/close monitoring. 10/22: GN Bacteremia and UTI suspect likely ecoli; final cultures pending, continue zosyn and IVF Status: Acute (2) Urinary tract infection: Problem details: UA indicates infection Culture both blood and urine pending as above, zosyn renally dosed/fluids. discussed estrogen replacement given the frequency of infections Status: Acute (3) Alcohol use disorder: Problem details: daily wine drinking >2 glasses Status: Acute Assessment and Plan: 10/22: start thiamine and MV; thrombocytopenia likely secondary to alcoholic liver dx (4) Hypertension: Problem details: hold atenolol and cozaar until sepsis clears Status: Acute (5) Hyperlipidemia: Problem details: statin and lopid - ok to continue Status: Acute (6) Gastroesophageal reflux disease: Problem details: continue PPI Status: Acute (7) Hypokalemia: Problem details: 10/22: Potassium 3.0 oral supplementation ordered Status: Acute Plan anticipated discharge 2 days pending antibiotic plan, Cx data, therapy recs Subjective Date Seen: 10/23/23 Interval history: patient endorses weakness and fatigue Blood cx today positive for GN species UCx positive for GN species denies abdominal pain afebrile this morning Exam Narrative: Exam Narrative: Gen: no acute distress HEENT: NCAT EOMI mmm CV: RRR normal s1 s2 Lungs: CTAB Abd: Soft,nt, nd Neuro: Alert, oriented, CN grossly intact; nonfocal screening?exam Psych: appropriate affect MSK: age appropriate muscle mass Skin; Warm, dry no rash on face Const: Vital Signs, click to edit/add: Vital Signs - 24 hr 10/22/23 12:13 10/22/23 12:32 10/22/23 12:50 Temperature 97.1 F L Pulse Rate 80 80 Pulse Rate [Left R adial] Pulse Rate [Pulse Oximeter] 80 Pulse Rate [orthos tatic lying] Pulse Rate [orthos tatic sitting Righ t] Pulse Rate [orthos tatic standing Rig ht] Respiratory Rate 16 Blood Pressure Blood Pressure [Ri ght Arm] Blood Pressure [Ri ght Upper Arm] 92/53 L Blood Pressure [or thostatic lying] Blood Pressure [or thostatic sitting] Blood Pressure [or thostatic standing ] Pulse Oximetry 98 99 96 Oxygen Delivery Me thod Room Air 10/22/23 13:00 10/22/23 13:30 10/22/23 13:50 Temperature Pulse Rate 77 78 77 Pulse Rate [Left R adial] Pulse Rate [Pulse Oximeter] Pulse Rate [orthos tatic lying] Pulse Rate [orthos tatic sitting Righ t] Pulse Rate [orthos tatic standing Rig ht] Respiratory Rate Blood Pressure 94/48 L Blood Pressure [Ri ght Arm] Blood Pressure [Ri ght Upper Arm] Blood Pressure [or thostatic lying] Blood Pressure [or thostatic sitting] Blood Pressure [or thostatic standing ] Pulse Oximetry 95 94 96 Oxygen Delivery Me thod 10/22/23 14:00 10/22/23 14:02 10/22/23 14:03 Temperature Pulse Rate 77 76 77 Pulse Rate [Left R adial] Pulse Rate [Pulse Oximeter] Pulse Rate [orthos tatic lying] Pulse Rate [orthos tatic sitting Righ t] Pulse Rate [orthos tatic standing Rig ht] Respiratory Rate Blood Pressure 94/51 L Blood Pressure [Ri ght Arm] Blood Pressure [Ri ght Upper Arm] Blood Pressure [or thostatic lying] Blood Pressure [or thostatic sitting] Blood Pressure [or thostatic standing ] Pulse Oximetry 94 94 93 Oxygen Delivery Me thod 10/22/23 14:32 10/22/23 14:59 10/22/23 15:09 Temperature 97.7 F Pulse Rate Pulse Rate [Left R adial] 76 76 Pulse Rate [Pulse Oximeter] Pulse Rate [orthos tatic lying] Pulse Rate [orthos tatic sitting Righ t] Pulse Rate [orthos tatic standing Rig ht] Respiratory Rate 18 18 18 Blood Pressure Blood Pressure [Ri ght Arm] 99/56 L Blood Pressure [Ri ght Upper Arm] Blood Pressure [or thostatic lying] Blood Pressure [or thostatic sitting] Blood Pressure [or thostatic standing ] Pulse Oximetry 93 93 Oxygen Delivery Me thod Room Air Room Air 10/22/23 15:30 10/22/23 15:32 10/22/23 15:57 Temperature Pulse Rate Pulse Rate [Left R adial] 75 Pulse Rate [Pulse Oximeter] Pulse Rate [orthos tatic lying] Pulse Rate [orthos tatic sitting Righ t] Pulse Rate [orthos tatic standing Rig ht] Respiratory Rate 18 Blood Pressure Blood Pressure [Ri ght Arm] 104/59 L Blood Pressure [Ri ght Upper Arm] Blood Pressure [or thostatic lying] Blood Pressure [or thostatic sitting] Blood Pressure [or thostatic standing ] Pulse Oximetry 99 98 95 Oxygen Delivery Me thod Room Air Room Air 10/22/23 16:25 10/22/23 16:40 10/22/23 16:40 Temperature Pulse Rate 73 Pulse Rate [Left R adial] 79 Pulse Rate [Pulse Oximeter] Pulse Rate [orthos tatic lying] 74 Pulse Rate [orthos tatic sitting Righ t] 78 Pulse Rate [orthos tatic standing Rig ht] 82 Respiratory Rate 22 Blood Pressure Blood Pressure [Ri ght Arm] 95/64 Blood Pressure [Ri ght Upper Arm] Blood Pressure [or thostatic lying] 87/62 L Blood Pressure [or thostatic sitting] 99/62 Blood Pressure [or thostatic standing ] 86/53 L Pulse Oximetry 95 Oxygen Delivery Me thod Room Air 10/22/23 17:17 10/22/23 18:30 10/22/23 19:30 Temperature 99.3 F Pulse Rate Pulse Rate [Left R adial] 78 75 73 Pulse Rate [Pulse Oximeter] Pulse Rate [orthos tatic lying] Pulse Rate [orthos tatic sitting Righ t] Pulse Rate [orthos tatic standing Rig ht] Respiratory Rate 18 18 18 Blood Pressure Blood Pressure [Ri ght Arm] 108/80 92/47 L 97/59 L Blood Pressure [Ri ght Upper Arm] Blood Pressure [or thostatic lying] Blood Pressure [or thostatic sitting] Blood Pressure [or thostatic standing ] Pulse Oximetry 94 96 94 Oxygen Delivery Me thod Room Air Room Air Room Air 10/22/23 23:00 10/22/23 23:36 10/22/23 23:37 Temperature 98.2 F Pulse Rate Pulse Rate [Left R adial] 72 72 Pulse Rate [Pulse Oximeter] Pulse Rate [orthos tatic lying] Pulse Rate [orthos tatic sitting Righ t] Pulse Rate [orthos tatic standing Rig ht] Respiratory Rate 18 18 Blood Pressure Blood Pressure [Ri ght Arm] 100/61 Blood Pressure [Ri ght Upper Arm] Blood Pressure [or thostatic lying] Blood Pressure [or thostatic sitting] Blood Pressure [or thostatic standing ] Pulse Oximetry 97 98 Oxygen Delivery Me thod Room Air 10/22/23 23:54 10/23/23 03:31 Temperature 97.9 F Pulse Rate 71 Pulse Rate [Left R adial] 75 Pulse Rate [Pulse Oximeter] Pulse Rate [orthos tatic lying] Pulse Rate [orthos tatic sitting Righ t] Pulse Rate [orthos tatic standing Rig ht] Respiratory Rate 16 Blood Pressure Blood Pressure [Ri ght Arm] 108/74 Blood Pressure [Ri ght Upper Arm] Blood Pressure [or thostatic lying] Blood Pressure [or thostatic sitting] Blood Pressure [or thostatic standing ] Pulse Oximetry 94 Oxygen Delivery Me thod Room Air Labs Labs: Laboratory Results - last 24 hr 10/22/23 10/22/23 10/22/23 12:50 13:08 15:20 WBC 15.76 H RBC 3.40 L Hgb 11.9 L Hct 33.1 MCV 97 MCH 35 H MCHC 36 RDW Coeff of Michelle 12.1 Plt Count 101 L Neut % (Auto) 92.8 H Lymph % (Auto) 1.6 L [place] % (Auto) 5.1 Eos % (Auto) 0.0 Baso % (Auto) 0.1 Neut # (Auto) 14.60 H Lymph # (Auto) 0.30 L [place] # (Auto) 0.80 Eos # (Auto) 0.00 Baso # (Auto) 0.00 Abs Immat Gran (auto) 0.10 Imm/Tot Granulo (auto) 0.4 INR 1.04 VBG pH VBG pCO2 VBG pO2 VBG HCO3 Sodium 127 L Potassium 3.6 Chloride 96 Carbon Dioxide 16 L Anion Gap 15 BUN 44 H Creatinine 1.4 Estimated Creat Clear 26.39 Estimated GFR 38 Glucose 152 H Lactate 2.3 H Calcium 9.1 Phosphorus Magnesium 1.3 L Total Bilirubin 1.0 Direct Bilirubin 0.5 AST 78 H ALT 47 H Alkaline Phosphatase 59 Troponin I 0.02 C-Reactive Protein 14.4 H Total Protein 6.8 Albumin 4.3 Procalcitonin 37.80 H Lab Acknowledgement Test Added 10/22/23 10/23/23 10/23/23 15:43 06:13 08:16 WBC 7.73 RBC 2.89 L Hgb 10.1 L Hct 28.1 L MCV 97 MCH 35 H MCHC 36 RDW Coeff of Michelle Plt Count 86 L Neut % (Auto) Lymph % (Auto) [place] % (Auto) Eos % (Auto) Baso % (Auto) Neut # (Auto) Lymph # (Auto) [place] # (Auto) Eos # (Auto) Baso # (Auto) Abs Immat Gran (auto) Imm/Tot Granulo (auto) INR VBG pH 7.357 7.402 VBG pCO2 33 L 32 L VBG pO2 < 30.1 45.2 VBG HCO3 19 L 20 L Sodium 133 L Potassium 3.0 L Chloride 106 Carbon Dioxide 20 Anion Gap 7 BUN 36 H Creatinine 1.0 Estimated Creat Clear 38.68 Estimated GFR 57 Glucose 98 Lactate 1.4 Calcium 7.9 L Phosphorus 2.9 Magnesium 2.2 Total Bilirubin Direct Bilirubin AST ALT Alkaline Phosphatase Troponin I C-Reactive Protein 14.7 H Total Protein Albumin 3.2 L Procalcitonin 20.80 H Lab Acknowledgement Test Added Test Added
[2023-10-23 11:00] VITALS: BP 108/60; PULSE 73; RESP 16; TEMP 36.8; O2SAT 93
[2023-10-23] MEDS: ENOXAPARIN 30 MG/0.3ML INJ SUBCUT (14:57)
[2023-10-23 15:00] VITALS: BP 105/62; PULSE 78; PULSE 83; RESP 16; TEMP 36.9; O2SAT 93
[2023-10-23] MEDS: LACTATED RINGERS 1000 ML 1,000 ML 75 ML IV (15:08)
[2023-10-23 19:00] VITALS: BP 129/78; PULSE 79; RESP 16; O2SAT 95
[2023-10-23 23:00] VITALS: BP 133/74; PULSE 72; PULSE 74; RESP 16; TEMP 36.9; O2SAT 92; O2SAT 95
[2023-10-24 03:00] VITALS: BP 134/76; PULSE 71; RESP 16; TEMP 36.7; O2SAT 96
--- NOTE | 2023-10-24 03:59 | PC.NURSE ---
patient alert and oriented, up sba with walker and belt in room tolerating well, declining pain, afebrile, tele nsr.
[2023-10-24 06:36] LABS: Basophils Absolute Auto 0.02 K/uL (0.00-0.30); Basophils Percent Auto 0.3 % (0.0-3.0); Eosinophils Absolute Auto 0.06 K/uL (0.00-0.50); Eosinophils Percent Auto 0.9 % (0.0-7.0); Hematocrit 27.6 % (33.0-51.0); Immature Granulocytes Abs Auto 0.04 K/uL (0.00-0.30); Immature Granulocytes Pct Auto 0.6 %; Lymphocytes Percent Auto 13.2 % (20-44); Mean Corpuscular HGB Conc 36 gm/dL (32-36); Mean Corpuscular Hemoglobin 35 pg (26-34); Mean Corpuscular Volume 98 fL (80-100); Monocytes Percent Auto 9.7 % (0.0-11.0); Neutrophils Percent Auto 75.3 % (42.0-72.0); Platelet Count* 101 K/uL (140-440); RDW Coefficient of Variation % 12.1 % (11.5-15.5); Red Blood Count 2.83 m/uL (4.00-5.20); White Blood Count* 6.82 K/uL (4.50-11.00)
[2023-10-24 06:49] LABS: Slide Review Reflex No
[2023-10-24 06:52] LABS: Albumin* 3.2 g/dL (3.3-5.0); Chloride* 109 mmol/L (96-114); Sodium* 135 mmol/L (135-149)
[2023-10-24 06:53] LABS: Potassium* 3.1 mmol/L (3.6-5.1)
[2023-10-24 06:55] LABS: Alanine Aminotransferase* 55 U/L (4-35); Alkaline Phosphatase* 61 U/L (40-150); Anion Gap 5 mEq/L (7-15); Aspartate Amino Transferase* 70 U/L (12-35); Bilirubin Total* 0.9 mg/dL (0.1-1.5); Blood Urea Nitrogen* 25 mg/dL (7-30); Carbon Dioxide* 21 mmol/L (20-32); Creatinine* 0.8 mg/dL (0.5-1.5); Est. Creatinine Clearance* 39.17; Estimated Glomerular Filt Rate 74 ml/min; Glucose* 92 mg/dL (60-115); Total Protein* 5.9 g/dL (6.0-8.3)
[2023-10-24 06:56] LABS: Calcium* 8.3 mg/dL (8.4-10.6)
[2023-10-24 07:00] VITALS: BP 148/84; PULSE 69; RESP 16; TEMP 37; O2SAT 97
[2023-10-24 07:10] VITALS: PULSE 73
[2023-10-24] MEDS: LACTOBACILLUS ACIDOPHILUS 1 TABLET 1 TAB PO ×3 (07:49→17:52)
[2023-10-24] MEDS: OMEPRAZOLE 20 MG CAPSULE DR 40 MG PO (07:49)
[2023-10-24] MEDS: SODIUM CHLORIDE 0.9 % (FLUSH) 10 ML SYRINGE 5 ML IVF ×2 (09:41→19:45)
[2023-10-24] MEDS: POTASSIUM CHLORIDE 10 MEQ CAPSULE ER 40 MEQ PO ×2 (09:41→17:52)
--- NOTE | 2023-10-24 09:49 | CRLHL7_ITS ---
For Patients: As a result of the Century Cures Act, medical imaging exams and procedure reports are released immediately into your electronic medical record. You may view this report before your referring provider. If you have questions, please contact your health care provider. INDICATION: Urinary tract infection. TECHNIQUE: Ultrasound abdomen limited. Sonographic images of the kidneys and bladder were obtained using kilgore-scale and color Doppler images. COMPARISON: None FINDINGS: Right kidney: The right kidney measures 10.7 cm in length. No renal calculi or significant hydronephrosis is identified. Left kidney: The left kidney measures 11.4 cm in length. Heterogeneous echogenic structure in the interpolar region of the left kidney measuring up to 1.7 cm, with posterior acoustic shadowing and twinkle artifact, likely calculus. No significant hydronephrosis is identified. Bladder: Unremarkable for degree of distention. No bladder calculi identified. Bilateral ureteral jets were seen. The prevoid volume was 251 mL. The postvoid volume was not measured. IMPRESSION: 1. Nonobstructing 1.7 cm calculus in the interpolar region of the left kidney. No hydronephrosis bilaterally. 2. Unremarkable appearance of the urinary bladder. Dictated by Jai Gloria MD @ 10/24/2023 12:47:48 PM (Electronically Signed)
--- NOTE | 2023-10-24 09:51 | PM.IMPN1 ---
Progress Note: A&P Assessment and plan (1) Sepsis: Problem details: While the vitals only met one criteria for sepsis (blood pressure), the UTI with a MAP <65, elevated lactate, low platelets all indicate sepsis. -IV abx, fluids, q30 min blood pressures w/close monitoring. 10/22: GN Bacteremia and UTI suspect likely ecoli; final cultures pending, continue zosyn and IVF 10/23: Blood cx and UCx growing Klebsiella species; will continue zosyn, ID consult Status: Acute (2) Urinary tract infection: Problem details: UA indicates infection Culture both blood and urine pending as above, zosyn renally dosed/fluids. discussed estrogen replacement given the frequency of infections Status: Acute (3) Hypokalemia: Problem details: 10/22: Potassium 3.0 oral supplementation ordered 10/23: continue replacement Status: Acute (4) Alcohol use disorder: Problem details: daily wine drinking >2 glasses add MV/thiamine Status: Acute (5) Hypertension: Problem details: hold atenolol and cozaar until sepsis clears Status: Acute (6) Hyperlipidemia: Problem details: statin and lopid - ok to continue Status: Acute (7) Gastroesophageal reflux disease: Problem details: continue PPI Status: Acute Plan Dispo-possible discharge to home tomorrow pending ID recs and therapy recs vs short term rehab Subjective Date Seen: 10/24/23 Interval history: patient afebrile HD stable Blood Cx and Urine Cx positive for klebsiella Daughter to come later today activity and appetite improving Exam Narrative: Exam Narrative: Gen: no acute dist ress HEENT: NCAT E LOLA mmm CV: RRR no rmal s1 s2 Lungs: CTAB Abd: Soft,nt, nd Neuro: Alert, oriented, CN gross ly intact; nonfoca l screening?exam Const: Vital Signs, click to edit/add: Vital Signs - 24 hr 10/23/23 11:00 10/23/23 15:10/23/23 15:00 Temperature 98.2 F 98.5 F Pulse Rate Pulse Rate [Left R adial] 73 78 Respiratory Rate 16 16 Blood Pressure [Ri ght Arm] 108/60 105/62 Pulse Oximetry 93 93 93 Oxygen Delivery Me thod Room Air Room Air 10/23/23 15:00 10/23/23 15:00 10/23/23 19:00 Temperature Pulse Rate 83 Pulse Rate [Left R adial] 78 79 Respiratory Rate 16 16 Blood Pressure [Ri ght Arm] 129/78 Pulse Oximetry 95 Oxygen Delivery Me thod Room Air 10/23/23 23:00 10/23/23 23:00 10/23/23 23:00 Temperature 98.5 F Pulse Rate 72 Pulse Rate [Left R adial] 74 Respiratory Rate 16 Blood Pressure [Ri ght Arm] 133/74 Pulse Oximetry 95 92 Oxygen Delivery Me thod Room Air 10/24/23 03:00 10/24/23 07:00 10/24/23 07:00 Temperature 98.0 F 98.6 F Pulse Rate Pulse Rate [Left R adial] 71 69 Respiratory Rate 16 16 Blood Pressure [Ri ght Arm] 134/76 148/84 H Pulse Oximetry 96 97 97 Oxygen Delivery In thod Room Air Room Air 10/24/23 07:10 Temperature Pulse Rate 73 Pulse Rate [Left R adial] Respiratory Rate Blood Pressure [Ri ght Arm] Pulse Oximetry Oxygen Delivery Me thod Labs Labs: Laboratory Results - last 24 hr 10/24/23 05:56 WBC 6.82 RBC 2.83 L Hgb 10.0 L Hct 27.6 L MCV 98 MCH 35 H MCHC 36 RDW Coeff of Michelle 12.1 Plt Count 101 L Neut % (Auto) 75.3 H Lymph % (Auto) 13.2 L [place] % (Auto) 9.7 Eos % (Auto) 0.9 Baso % (Auto) 0.3 Neut # (Auto) 5.10 Lymph # (Auto) 0.90 [place] # (Auto) 0.70 Eos # (Auto) 0.06 Baso # (Auto) 0.02 Abs Immat Gran (auto) 0.04 Imm/Tot Granulo (auto) 0.6 Sodium 135 Potassium 3.1 L Chloride 109 Carbon Dioxide 21 Anion Gap 5 L BUN 25 Creatinine 0.8 Estimated Creat Clear 39.17 Estimated GFR 74 Glucose 92 Calcium 8.3 L Total Bilirubin 0.9 AST 70 H ALT 55 H Alkaline Phosphatase 61 Total Protein 5.9 L Albumin 3.2 L
--- NOTE | 2023-10-24 10:37 | W.PM.INFDCN ---
Consultation Information Consultation Information Consultation Statement: This patient recommendation is based on a telemedicine consult request which was completed asynchronously through chart review and information provided by the primary physician. The patient was not seen or examined today. The evaluation is consultative in nature and all patient care and treatment decisions can either be accepted or rejected by the patient's primary hospital-based treating physician using their own independent medical judgment for their patient. [employer] contact information: Please call [facility] [phone] HPI - Infectious Disease History of Present Illness History of Present Illness: Annie is an 82-year-old female with PMH GERD, chronic alcohol use disorder, history recurrent UTIs who was referred to [facility] [place] ED on 10/21 after being seen at Urgent Care where she c/o fevers, chills, nausea and urinary symptoms, and was found to be hypotensive with a positive UA. Pt initially presented to Urgent Care on 10/22/23 presents to the urgent care with c/o 3 day history of fever, chills, fatigue, vomiting, nausea and dysuria. Patient reported her symptoms of dysuria started approximately 5 days prior but seem to be improving. She reported that all of her symptoms started suddenly 3 days prior to presentation after eating hamburger that had been in the refrigerator for 1 week. She originally thought she may have gastroenteritis but was concerned because symptoms persisted with fevers and chills, low appetite and fatigue, + N and V. Patient lives alone in her own town home in [place]. Upon presentation she denied cough, chest congestion or abdominal pain, no BRANCH or sore throat. At urgent care urine showed 3+ leukocytes, greater than 100 WBC's, moderate amount of bacteria and cloudy urine. Pt noted to have leukocytosis her WBC count was 14.9K with left shift, Na 128, plat 81K. who saw the patient for an urgent visit called ED and the patient was transported to [facility] on 10/22/23 for further management. Upon presentation pt was hypotensive to 82/49 and 94/51, MAP 65, after IV fluid. Labs notable for leukocytosis WBC 15.7K with 92.8% PMNs, HG 11.9, plat 101K, serum Cr elevated at 1.4 from 0.8, LA 2.3, Procalcitonin 20.8, CRP 14.7, UA positive for 3+ leuk esterase, moderate bacteria, >100 WBC, no nitrites. Respiratory swab negative, blood cx and urine cx were sent. Pt started on IV Zosyn and IVF. 10/22 blood cx grew GNR, on 10/23 both blood cx and urine cx growing Klebsiella pneumoniae R ampicillin, I nitrofurantoin. 10/21 one 1 of 2 sets of blood cx + kleb. Tele ID is consulted on 10/24/23 to further assist with antibiotic management. [facility] Medical History (Updated 10/24/23 @ 09:53 by Benjamin Burgos MD) Venous stasis dermatitis of both lower extremities ?I87.2 - Venous insufficiency (chronic) (peripheral) (ICD-10) Raynaud's phenomenon ?I73.00 - Raynaud's syndrome without gangrene (ICD-10) Prediabetes ?R73.03 - Prediabetes (ICD-10) Osteopenia ?M85.80 - Other specified disorders of bone density and structure, unspecified site (ICD-10) Mass of vulva ?N90.89 - Other specified noninflammatory disorders of vulva and perineum (ICD-10) Compression fracture of T6 vertebra ?S22.050A - Wedge compression fracture of T5-T6 vertebra, initial encounter for closed fracture (ICD-10) Calculus of kidney ?N20.0 - Calculus of kidney (ICD-10) Basal cell carcinoma (BCC) ?C44.91 - Basal cell carcinoma of skin, unspecified (ICD-10) Atherosclerosis of abdominal aorta ?I70.0 - Atherosclerosis of aorta (ICD-10) History of gout ?Z87.39 - Personal history of other diseases of the musculoskeletal system and connective tissue (ICD-10) History of colonic polyps (03/18/13) ?Z86.010 - Personal history of colonic polyps (ICD-10) Surgical History History of wisdom tooth extraction (03/18/13) ?K08.409 - Partial loss of teeth, unspecified cause, unspecified class (ICD-10) History of hysterectomy (03/18/13) ?Z90.710 - Acquired absence of both cervix and uterus (ICD-10) History of appendectomy (03/18/13) ?Z90.49 - Acquired absence of other specified parts of digestive tract (ICD-10) Family History Mother Breast cancer, Onset Age: 80 Daughter Breast cancer Father Myocardial infarction, Onset Age: 60 Other Empyema Social History Narrative: does not use illicit drugs former smoker occasional alcohol consumption What is your current living situation?: I presently have a place to live Problems where you live: no known problems Problems where you live details: na In the past 12 months, utilities in danger of being shut off: no In past 12 months, lack of transportation kept you from medical appts, meetings, work, or getting things needed for daily living: no In the past 12 mos, have been you worried that your food would run out before you had money to buy more?: never true In the past 12 mos, the food you bought just didn't last and you didn't have money to buy more?: never true Highest level of school completed/degree received: some college, no degree Smoking Status: Former smoker How often do you have a drink containing alcohol: 4 or more times a week How many standard drinks containing alcohol do you have on a typical day: 3 or 4 AUDIT-C Alcohol total score: 5 Non-prescribed substance use: denies use Caffeine: Yes (1 cup) How often does anyone, including family, friends and others, physically hurt you: never How often does anyone, including family, friends and others, insult or talk down to you: never How often does anyone, including family, friends and others, threaten you with harm: never How often does anyone, including family, friends and others, scream or curse at you: never Little interest or pleasure in doing things: not at all Feeling down, depressed, or hopeless: several days service: No Home Medications and Allergies Home Medications and Allergies Inpatient Medications: Active Medications Generic Name Dose Route Start Last Admin Trade Name Freq PRN Reason Stop Dose Admin Acetaminophen 650 - 975 mg 10/22/23 15:20 Acetaminophen 325 Mg Tablet PO Q6H PRN Bisacodyl 10 mg 10/22/23 15:20 Bisacodyl 10 Mg Supp.Rect NC DAILY PRN Enoxaparin Sodium 30 mg 10/22/23 15:20 10/23/23 14:57 Enoxaparin 30 Mg/0.3ml Inj SUBCUT 30 mg Q24H TELMA Administration Estrogens Conjugated 1 applic 10/23/23 09:00 Estrogens, Conjugated Vaginal 0.625 Mg/G Cream VAGINAL DAILY TELMA Piperacillin Sod/Tazobactam 100 mls @ 200 mls/hr 10/22/23 20:00 10/24/23 09:42 Sod 2.25 gm/ Sodium Chloride IVPB Infused Q6H TELMA Infusion Lactobacillus Acidophilus 1 tab 10/22/23 18:00 10/24/23 07:49 Lactobacillus Acidophilus 1 Tablet PO 1 tab TIDWM TELMA Administration Melatonin 3 - 6 mg 10/22/23 20:00 Melatonin 3 Mg Tablet PO HS PRN Omeprazole 40 mg 10/23/23 09:00 10/24/23 07:49 Omeprazole [address] PO 40 mg DAILY TELMA Administration Ondansetron HCl 4 mg 10/22/23 15:20 Ondansetron 2 Mg/Ml Inj IVP Q4H PRN Nausea Ondansetron HCl 4 mg 10/22/23 15:20 Ondansetron Odt 4 Mg Tab PO Q6H PRN Polyethylene Glycol 17 gm 10/22/23 20:00 Polyethylene Glycol 3350 17 Gm Pack PO DAILY PRN Potassium Chloride 40 meq 10/24/23 18:00 Potassium Chloride 10 Meq Capsule Er PO 10/24/23 18:01 ONCE ONE Senna/Docusate Sodium 1 tab 10/22/23 20:00 Sennosides/Docusate Tablet PO DAILY PRN Sodium Chloride 5 ml 10/22/23 15:20 10/23/23 03:25 Sodium Chloride 0.9 % (Flush) 10 Ml Syringe IVF 5 ml .FLUSH PRN Administration Sodium Chloride 5 ml 10/22/23 21:00 10/24/23 09:41 Sodium Chloride 0.9 % (Flush) 10 Ml Syringe IVF 5 ml BID TELMA Administration Discontinued Medications Generic Name Dose Route Start Last Admin Trade Name Freq PRN Reason Stop Dose Admin Sodium Chloride 500 mls @ 500 mls/hr 10/22/23 12:32 10/22/23 13:45 0.9 % Sodium Chloride 500 Ml IV 10/22/23 13:31 Infused .Q1H ONE Infusion Piperacillin Sod/Tazobactam 100 mls @ 200 mls/hr 10/22/23 12:32 10/22/23 14:25 Sod 3.375 gm/ Sodium Chloride IVPB 10/22/23 12:33 Infused ONCE ONE Infusion Sodium Chloride 500 mls @ 500 mls/hr 10/22/23 12:58 10/22/23 13:50 0.9 % Sodium Chloride 500 Ml IV 10/22/23 13:57 Infused .Q1H ONE Infusion Lactated Ringer's 1,000 mls @ 125 mls/hr 10/22/23 15:20 10/24/23 07:28 Lactated Ringers 1000 Ml IV Infused .Q8H TELMA Infusion Magnesium Sulfate 4 gm in 100 mls @ 25 mls/hr 10/22/23 16:01 10/24/23 07:28 Magnesium Iv IVPB 10/22/23 20:00 Infused ONCE ONE Infusion Lactated Ringer's 1,000 mls @ 75 mls/hr 10/23/23 10:12 10/23/23 15:08 Lactated Ringers 1000 Ml IV 75 mls/hr .[id number] TELMA Administration Potassium Chloride 40 meq 10/23/23 07:53 10/23/23 08:32 Potassium Chloride 10 Meq Capsule Er PO 10/23/23 07:54 40 meq ONCE ONE Administration Potassium Chloride 20 meq 10/23/23 16:00 10/23/23 17:12 Potassium Chloride 10 Meq Capsule Er PO 10/23/23 16:01 Not Given ONCE ONE Potassium Chloride 40 meq 10/24/23 08:08 10/24/23 09:41 Potassium Chloride 10 Meq Capsule Er PO 10/24/23 08:09 40 meq ONCE ONE Administration Allergies Allergy/AdvReac Type Severity Reaction Status Date / Time fenofibrate Allergy Intermediate elevated Verified 10/22/23 10:07 transaminases potassium chloride Allergy Intermediate pruritis Verified 10/22/23 10:07 cefdinir Allergy Unknown decreased Verified 10/22/23 10:07 appetite, weight loss, diarrhea losartan AdvReac Intermediate pruritis Verified 10/22/23 10:07 Sulfamethoxazole / AdvReac Unknown nausea and Uncoded 10/22/23 10:07 trimethoprim vomiting Objective - Infectious Disease Objective Vital Signs: Vital Signs - 24 hr 10/23/23 11:00 10/23/23 15:00 10/23/23 15:00 Temperature 98.2 F 98.5 F Pulse Rate Pulse Rate [Left Radial] 73 78 Respiratory Rate 16 16 Blood Pressure [Right Arm] 108/60 105/62 Pulse Oximetry 93 93 93 Oxygen Delivery Method Room Air Room Air 10/23/23 15:00 10/23/23 15:00 10/23/23 19:00 Temperature Pulse Rate 83 Pulse Rate [Left Radial] 78 79 Respiratory Rate 16 16 Blood Pressure [Right Arm] 129/78 Pulse Oximetry 95 Oxygen Delivery Method Room Air 10/23/23 23:00 10/23/23 23:00 10/23/23 23:00 Temperature 98.5 F Pulse Rate 72 Pulse Rate [Left Radial] 74 Respiratory Rate 16 Blood Pressure [Right Arm] 133/74 Pulse Oximetry 95 92 Oxygen Delivery Method Room Air 10/24/23 03:00 10/24/23 07:00 10/24/23 07:00 Temperature 98.0 F 98.6 F Pulse Rate Pulse Rate [Left Radial] 71 69 Respiratory Rate 16 16 Blood Pressure [Right Arm] 134/76 148/84 H Pulse Oximetry 96 97 97 Oxygen Delivery Method Room Air Room Air 10/24/23 07:10 Temperature Pulse Rate 73 Pulse Rate [Left Radial] Respiratory Rate Blood Pressure [Right Arm] Pulse Oximetry Oxygen Delivery Method Narrative: Patient was not seen or examined. Results - Infectious Disease Results Labs: 10/22/23 13:07 Blood Blood Culture - Preliminary Klebsiella pneumoniae 10/22/23 12:50 Blood Blood Culture - Preliminary NO GROWTH AFTER 24 HOURS Laboratory Tests 10/24/23 10/23/23 10/23/23 Range/Units 05:56 08:16 06:13 WBC 6.82 7.73 (4.50-11.00) K/uL RBC 2.83 L 2.89 L (4.00-5.20) m/uL Hgb 10.0 L 10.1 L (12.0-16.0) gm/dL Hct 27.6 L 28.1 L (33.0-51.0) % MCV 98 97 (80-100) fL MCH 35 H 35 H (26-34) pg MCHC 36 36 (32-36) gm/dL RDW Coeff of Michelle 12.1 (11.5-15.5) % Plt Count 101 L 86 L (140-440) K/uL Neut % (Auto) 75.3 H (42.0-72.0) % Lymph % (Auto) 13.2 L (20-44) % [place] % (Auto) 9.7 (0.0-11.0) % Eos % (Auto) 0.9 (0.0-7.0) % Baso % (Auto) 0.3 (0.0-3.0) % Neut # (Auto) 5.10 (1.7-7.0) K/uL Lymph # (Auto) 0.90 (0.90-2.90) K/uL [place] # (Auto) 0.70 (0.00-0.90) K/UL Eos # (Auto) 0.06 (0.00-0.50) K/uL Baso # (Auto) 0.02 (0.00-0.30) K/uL Abs Immat Gran (auto) 0.04 (0.00-0.30) K/uL Imm/Tot Granulo (auto) 0.6 % INR (0.91-1.10) VBG pH 7.402 (7.32-7.43) VBG pCO2 32 L (40-50) mmHG VBG pO2 45.2 (25-47) mmHG VBG HCO3 20 L (21-28) mmol/L Sodium 135 133 L (135-149) mmol/L Potassium 3.1 L 3.0 L (3.6-5.1) mmol/L Chloride 109 106 (96-114) mmol/L Carbon Dioxide 21 20 (20-32) mmol/L Anion Gap 5 L 7 (7-15) mEq/L BUN 25 36 H (7-30) mg/dL Creatinine 0.8 1.0 (0.5-1.5) mg/dL Estimated Creat Clear 39.17 38.68 Estimated GFR 74 57 ml/min Glucose 92 98 (60-115) mg/dL Lactate (0.5-1.9) mmol/L Calcium 8.3 L 7.9 L (8.4-10.6) mg/dL Phosphorus 2.9 (2.5-4.5) mg/dL Magnesium 2.2 (1.5-2.6) mg/dL Total Bilirubin 0.9 (0.1-1.5) mg/dL Direct Bilirubin (0.0-0.5) mg/dL AST 70 H (12-35) U/L ALT 55 H (4-35) U/L Alkaline Phosphatase 61 (40-150) U/L Troponin I (0.01-0.04) ng/mL C-Reactive Protein 14.7 H (0.5-1.0) mg/dL Total Protein 5.9 L (6.0-8.3) g/dL Albumin 3.2 L 3.2 L (3.3-5.0) g/dL Procalcitonin 20.80 H (<0.50) ng/mL Lab Acknowledgement Test Added 10/22/23 10/22/23 10/22/23 Range/Units 15:43 15:20 13:08 WBC (4.50-11.00) K/uL RBC (4.00-5.20) m/uL Hgb (12.0-16.0) gm/dL Hct (33.0-51.0) % MCV (80-100) fL MCH (26-34) pg MCHC (32-36) gm/dL RDW Coeff of Michelle (11.5-15.5) % Plt Count (140-440) K/uL Neut % (Auto) (42.0-72.0) % Lymph % (Auto) (20-44) % [place] % (Auto) (0.0-11.0) % Eos % (Auto) (0.0-7.0) % Baso % (Auto) (0.0-3.0) % Neut # (Auto) (1.7-7.0) K/uL Lymph # (Auto) (0.90-2.90) K/uL [place] # (Auto) (0.00-0.90) K/UL Eos # (Auto) (0.00-0.50) K/uL Baso # (Auto) (0.00-0.30) K/uL Abs Immat Gran (auto) (0.00-0.30) K/uL Imm/Tot Granulo (auto) % INR (0.91-1.10) VBG pH 7.357 (7.32-7.43) VBG pCO2 33 L (40-50) mmHG VBG pO2 < 30.1 (25-47) mmHG VBG HCO3 19 L (21-28) mmol/L Sodium (135-149) mmol/L Potassium (3.6-5.1) mmol/L Chloride (96-114) mmol/L Carbon Dioxide (20-32) mmol/L Anion Gap (7-15) mEq/L BUN (7-30) mg/dL Creatinine (0.5-1.5) mg/dL Estimated Creat Clear Estimated GFR ml/min Glucose (60-115) mg/dL Lactate 1.4 2.3 H (0.5-1.9) mmol/L Calcium (8.4-10.6) mg/dL Phosphorus (2.5-4.5) mg/dL Magnesium (1.5-2.6) mg/dL Total Bilirubin (0.1-1.5) mg/dL Direct Bilirubin (0.0-0.5) mg/dL AST (12-35) U/L ALT (4-35) U/L Alkaline Phosphatase (40-150) U/L Troponin I (0.01-0.04) ng/mL C-Reactive Protein (0.5-1.0) mg/dL Total Protein (6.0-8.3) g/dL Albumin (3.3-5.0) g/dL Procalcitonin (<0.50) ng/mL Lab Acknowledgement Test Added Test Added 10/22/23 Range/Units 12:50 WBC 15.76 H (4.50-11.00) K/uL RBC 3.40 L (4.00-5.20) m/uL Hgb 11.9 L (12.0-16.0) gm/dL Hct 33.1 (33.0-51.0) % MCV 97 (80-100) fL MCH 35 H (26-34) pg MCHC 36 (32-36) gm/dL RDW Coeff of Michelle 12.1 (11.5-15.5) % Plt Count 101 L (140-440) K/uL Neut % (Auto) 92.8 H (42.0-72.0) % Lymph % (Auto) 1.6 L (20-44) % [place] % (Auto) 5.1 (0.0-11.0) % Eos % (Auto) 0.0 (0.0-7.0) % Baso % (Auto) 0.1 (0.0-3.0) % Neut # (Auto) 14.60 H (1.7-7.0) K/uL Lymph # (Auto) 0.30 L (0.90-2.90) K/uL [place] # (Auto) 0.80 (0.00-0.90) K/UL Eos # (Auto) 0.00 (0.00-0.50) K/uL Baso # (Auto) 0.00 (0.00-0.30) K/uL Abs Immat Gran (auto) 0.10 (0.00-0.30) K/uL Imm/Tot Granulo (auto) 0.4 % INR 1.04 (0.91-1.10) VBG pH (7.32-7.43) VBG pCO2 (40-50) mmHG VBG pO2 (25-47) mmHG VBG HCO3 (21-28) mmol/L Sodium 127 L (135-149) mmol/L Potassium 3.6 (3.6-5.1) mmol/L Chloride 96 (96-114) mmol/L Carbon Dioxide 16 L (20-32) mmol/L Anion Gap 15 (7-15) mEq/L BUN 44 H (7-30) mg/dL Creatinine 1.4 (0.5-1.5) mg/dL Estimated Creat Clear 26.39 Estimated GFR 38 ml/min Glucose 152 H (60-115) mg/dL Lactate (0.5-1.9) mmol/L Calcium 9.1 (8.4-10.6) mg/dL Phosphorus (2.5-4.5) mg/dL Magnesium 1.3 L (1.5-2.6) mg/dL Total Bilirubin 1.0 (0.1-1.5) mg/dL Direct Bilirubin 0.5 (0.0-0.5) mg/dL AST 78 H (12-35) U/L ALT 47 H (4-35) U/L Alkaline Phosphatase 59 (40-150) U/L Troponin I 0.02 (0.01-0.04) ng/mL C-Reactive Protein 14.4 H (0.5-1.0) mg/dL Total Protein 6.8 (6.0-8.3) g/dL Albumin 4.3 (3.3-5.0) g/dL Procalcitonin 37.80 H (<0.50) ng/mL Lab Acknowledgement Impression & Recommendations Recommendations Impression & Recommendations: Reason For Consult: Klebsiella pneumoniae UTI complicated by bacteremia HPI: Annie is an 82-year-old female with PMH GERD, chronic alcohol use disorder, history recurrent UTIs who was referred to [place] ED on 10/21 after being seen at Urgent Care where she c/o fevers, chills, nausea and urinary symptoms, and was found to be hypotensive with a positive UA. Pt initially presented to Urgent Care on 10/22/23 presents to the urgent care with c/o 3 day history of fever, chills, fatigue, vomiting, nausea and dysuria. Patient reported her symptoms of dysuria started approximately 5 days prior but seem to be improving. She reported that all of her symptoms started suddenly 3 days prior to presentation after eating hamburger that had been in the refrigerator for 1 week. She originally thought she may have gastroenteritis but was concerned because symptoms persisted with fevers and chills, low appetite and fatigue, + N and V. Patient lives alone in her own town home in [place]. Upon presentation she denied cough, chest congestion or abdominal pain, no BRANCH or sore throat. At urgent care urine showed 3+ leukocytes, greater than 100 WBC's, moderate amount of bacteria and cloudy urine. Pt noted to have leukocytosis her WBC count was 14.9K with left shift, Na 128, plat 81K. MD who saw the patient for an urgent visit called ED and the patient was transported to [facility] on 10/22/23 for further management. Upon presentation pt was hypotensive to 82/49 and 94/51, MAP 65, after IV fluid. Labs notable for leukocytosis WBC 15.7K with 92.8% PMNs, HG 11.9, plat 101K, serum Cr elevated at 1.4 from 0.8, LA 2.3, Procalcitonin 20.8, CRP 14.7, UA positive for 3+ leuk esterase, moderate bacteria, >100 WBC, no nitrites. Respiratory swab negative, blood cx and urine cx were sent. Pt started on IV Zosyn and IVF. 10/22 blood cx grew GNR, on 10/23 both blood cx and urine cx growing Klebsiella pneumoniae R ampicillin, I nitrofurantoin. 10/21 one 1 of 2 sets of blood cx + kleb. Tele ID is consulted on 10/24/23 to further assist with antibiotic management. The pt remains afebrile throughout her hospital stay Tmax 99.3, stable vitals over the last 48H. Her leukocytosis resolved WBC down to 6.82K<15.7K, plat count improved from 81K to 101K, serum Cr also improved to 0.8<1.4. Repeat LA 1.4<2.3. AST 70, ALT 55, CRP remains elevated at 14.7. Limited RVP negative, CXR 10/21 no acute cardiopulmonary process Micro Summary: 10/21 blood cx 1 of 2 sets + Klebsiella pneumoniae only R ampicillin 10/21 urine Cx >100K Klebsiella pneumoniae only R ampicillin, I nitrofurantoin. Diagnostics (Labs, Imaging) Summary: CXR no acute process Antibiotic Summary: Zosyn 10/21-current. Antibiotic allergies/intolerances: Cefdinir intolerance (decreased appetite, Wt loss, diarrhea), Bactrim intolerance (N and V). Patient Summary: Pt with PMH as listed above who was admitted with fevers, chills, urinary symptoms and nausea with vomiting, she was found to have urosepsis with Klebsiella pneumonia UTI complicated by bacteremia, she seems to be clinically improving with improved hemodynamics, resolved leukocytosis and PHYLLIS, we need repeat blood cx to document clearance of the bacteremia and I suggest imaging of the kidneys to r/o local complication vs obstruction, may get a renal US. The klebsiella pneumonia growing from both blood and urine is very sensitive, therefore IV Zosyn can be narrowed to ceftriaxone 2 gr IV q24 hr (there is document Rx to Cefdinir which is likely an intolerance rather than allergic Rx) Recommendations: -To get 2 sets of repeat blood cx to document clearance of the bacteremia. -Would get renal imaging with an ultrasound. -To d/c Zosyn and switch to ceftriaxone 2 gr iv q24 hr. -While on systemic IV Abx continue to monitor for any adverse events and monitor labs with cbc/diff and CMP. -If the pt continues to clinically improve and when she is ready for discharge, she can be transitioned to Cefpodoxime 400 mg PO BID to complete a 10-day course of oral Abx (Pt is on day # 3 of Zosyn). -Plan was discussed with primary team. Thanks for the consult, tele ID will sign off, you can call with any questions. Mani Vincent MD [facility]
[2023-10-24 11:00] VITALS: BP 131/81; PULSE 70; RESP 18; TEMP 36.4; O2SAT 97
[2023-10-24 15:00] VITALS: BP 143/80; PULSE 69; RESP 20; TEMP 36.7; O2SAT 96
[2023-10-24] MEDS: ENOXAPARIN 30 MG/0.3ML INJ SUBCUT (16:08)
[2023-10-24] MEDS: cefTRIAXone 2 GM in 0.9 % SODIUM CHLORIDE Mini-bag 100 ML IVPB (17:53)
--- NOTE | 2023-10-24 18:37 | PC.NURSE ---
End of shift-- Pleasant and cooperative, alert and oriented patient. VSS and pt is afebrile. SPO2 maintained >90% on RA. She denied any pain. LS CTA. Telemetry showed NSR and was dc'd per MD. She denied nausea and tolerated a regular diet but pt eats only small amounts which she stated is her baseline. She was up to BR SBA/independently with walker today and tolerated it well.
[2023-10-24 19:46] VITALS: BP 138/84; PULSE 70; RESP 18; TEMP 36.6; O2SAT 97
[2023-10-25 00:11] VITALS: BP 131/82; PULSE 78; RESP 18; TEMP 36.4; O2SAT 96
[2023-10-25 04:26] VITALS: RESP 18
--- NOTE | 2023-10-25 05:48 | PC.NURSE ---
[id number]: Patient cooperative with cares. Afebrile. Independent in room. Ambulation encouraged. Denies pain. Denies N/V. Eating and voiding. Eager to d/c.
[2023-10-25 06:35] LABS: Hematocrit 30.4 % (33.0-51.0); Mean Corpuscular HGB Conc 36 gm/dL (32-36); Mean Corpuscular Hemoglobin 35 pg (26-34); Mean Corpuscular Volume 96 fL (80-100); Platelet Count* 116 K/uL (140-440); Red Blood Count 3.16 m/uL (4.00-5.20); White Blood Count* 6.05 K/uL (4.50-11.00)
[2023-10-25 06:38] LABS: Slide Review Reflex No
[2023-10-25 06:45] LABS: Chloride* 109 mmol/L (96-114)
[2023-10-25 06:46] LABS: Potassium* 3.8 mmol/L (3.6-5.1); Sodium* 138 mmol/L (135-149)
[2023-10-25 06:48] LABS: Creatinine* 0.6 mg/dL (0.5-1.5); Est. Creatinine Clearance* 38.46; Estimated Glomerular Filt Rate 91 ml/min
[2023-10-25 06:49] LABS: Anion Gap 7 mEq/L (7-15); Blood Urea Nitrogen* 16 mg/dL (7-30); Calcium* 8.9 mg/dL (8.4-10.6); Carbon Dioxide* 22 mmol/L (20-32); Glucose* 102 mg/dL (60-115)
[2023-10-25 07:00] VITALS: BP 143/82; PULSE 78; RESP 18; TEMP 36.3; O2SAT 96
[2023-10-25] MEDS: LACTOBACILLUS ACIDOPHILUS 1 TABLET 1 TAB PO ×2 (07:51→11:27)
[2023-10-25] MEDS: OMEPRAZOLE 20 MG CAPSULE DR 40 MG PO (07:51)
--- NOTE | 2023-10-25 09:11 | PM.DS1 ---
DS: Providers Provider Date Seen: 10/25/23 Date of admission: 10/22/23 15:20 Primary care physician: Not a Local Provider Admitting Clinician: Fransisca Mott MD Consults: 10/22/23 15:20 Consult to Occupational Therapy [CONS] Routine Comment: Reason(s) for OT Consult:: Evaluate and Treat Any Restrictions?:: No Restrictions Consult to Physical Therapy [CONS] Routine Comment: Reason(s) for PT Consult:: Evaluate and Treat Any Restrictions?:: No Restrictions Consult to Business Planning Analyst [CONS] Routine Comment: Reason for Consult:: Social Service Consult 10/24/23 08:12 Consult to Infectious Diseases [CONS] Routine Comment: Consulting Provider: [facility] Consult priority: Routine Has provider been notified: No Call back required?: No Attending Physician on discharge: Benjamin Burgos MD Date of Discharge: 10/25/23 DS: Diagnosis Discharge Diagnosis (1) Sepsis: Status: Acute Problem details: While the vitals only met one criteria for sepsis (blood pressure), the UTI with a MAP <65, elevated lactate, low platelets all indicate sepsis. -IV abx, fluids, q30 min blood pressures w/close monitoring. 10/22: GN Bacteremia and UTI suspect likely ecoli; final cultures pending, continue zosyn and IVF 10/23: Blood cx and UCx growing Klebsiella species; will continue zosyn, ID consult 10/24 ID recommended transitioning to ceftriaxone and PO cephalosporin on discharge (2) Bacteremia: Status: Acute Problem details: Initial Blood Cx growing Klebsiella species; repeat Blood Cx pending and should be followed up by primary care clinice (3) Hypokalemia: Status: Acute Problem details: 10/22: Potassium 3.0 oral supplementation ordered 10/23: continue replacement (4) Urinary tract infection: Status: Acute Problem details: grwoing klebsiella species; originally treated with zosyn then transitioned to ceftriaxone on 10/23 (5) Alcohol use disorder: Status: Acute Problem details: daily wine drinking >2 glasses add MV/thiamine (6) Hypertension: Status: Acute Problem details: resume atenolol and aldactone (7) Hyperlipidemia: Status: Acute Problem details: statin and lopid - ok to continue (8) Gastroesophageal reflux disease: Status: Acute Problem details: continue PPI DS: Summary Time Spent with Patient Time attestation: Total time spent providing and/or coordinating discharge services: Exam Narrative: Exam Narrative: Gen: no acute distress HEENT: NCAT EOMI mmm CV: RRR normal s1 s2 Lungs: CTAB Abd: Soft,nt, nd Neuro: Alert, oriented, CN grossly intact; nonfocal screening?exam Psych: appropriate affect MSK: age appropriate muscle mass Skin; Warm, dry no rash on face Const: Vital Signs, click to edit/add: Vital Signs - 24 hr 10/24/23 11:00 10/24/23 15:00 10/24/23 15:00 Temperature 97.6 F 98.0 F Pulse Rate [Left R adial] 70 69 69 Respiratory Rate 18 20 20 Blood Pressure [Ri ght Arm] 131/81 143/80 H Pulse Oximetry 97 96 Oxygen Delivery Me thod Room Air Room Air 10/24/23 19:46 10/25/23 00:11 10/25/23 04:26 Temperature 97.8 F 97.6 F Pulse Rate [Left R adial] 70 78 Respiratory Rate 18 18 18 Blood Pressure [Ri ght Arm] 138/84 131/82 Pulse Oximetry 97 96 Oxygen Delivery Me thod Room Air Room Air 10/25/23 07:00 10/25/23 07:00 Temperature 97.3 F L Pulse Rate [Left R adial] 78 Respiratory Rate 18 18 Blood Pressure [Ri ght Arm] 143/82 H Pulse Oximetry 96 Oxygen Delivery Me thod Room Air DS: Data Data Completed and Pending Pending studies at discharge: repeat blood cultures are pending and will need to followed up by primary care clinic Labs on day of discharge: Labs from last 24 hours 10/25/23 05:51 WBC 6.05 RBC 3.16 L Hgb 11.0 L Hct 30.4 L MCV 96 MCH 35 H MCHC 36 Plt Count 116 L Sodium 138 Potassium 3.8 Chloride 109 Carbon Dioxide 22 Anion Gap 7 BUN 16 Creatinine 0.6 Estimated Creat Clear 38.46 Estimated GFR 91 Glucose 102 Calcium 8.9 Preliminary micro results at discharge 10/22/23 12:50 Blood Culture - Preliminary Blood NO GROWTH AFTER 48 HOURS 10/22/23 13:07 Blood Culture - Preliminary Blood Klebsiella pneumoniae Discharge Plan Discharge Disposition: Home, Self-Care Date of Admission: 10/22/23 15:20 Attending Provider on Discharge: Benjamin Burgos Consulting Providers: Mary Jefferson; Mani Vincent; Serenity Guo; Brody Vargas; Esvin Estrada; Doris Mejia; Gabby Hoff; Roxy Wyatt Primary Care Provider: Provider,Not a Local Condition: Improved Anticipated Discharge Date/Time: 10/25/23 12:00 Discharge Medications: New cefdinir 300 mg capsule 300 mg PO BID 7 Days Qty: 14 0RF Rx Instructions: take one tablet with morning meal and one table with evening meal starting 10/25 atenolol 25 mg Tablet 25 mg PO DAILY Qty: 30 0RF Continued spironolactone 25 mg tablet 25 mg PO DAILY vitamin B complex-folic acid [B Complex 1 (with folic acid)] 0.4 mg tablet 1 tab PO DAILY gemfibrozil 600 mg tablet 600 mg PO DAILY Qty: 90 1RF omeprazole 40 mg capsule,delayed release(DR/EC) 40 mg PO DAILY Qty: 90 1RF Discontinued atenolol 25 mg tablet 25 mg PO DAILY Discharge Orders: Discharge Order (Routine); Ordered 10/25/23 Ordered By: Benjamin Burgos Patient Education: Atenolol (By mouth), Cefdinir (By mouth), Urinary Tract Infection in Women (DC), Sepsis (DC) Activity Level: Activity as Tolerated Diet Detail: Resume previous home diet Follow Up Appointments: Provider,Not a Local [Primary Care Provider] - Candy Knight DO [Referring] - (Please follow up with Primary care clinic in 3-5 days for post hospital follow up. Your primary provider will need to follow up with pending blood culture) Forms: [employer] Info Instructions
[2023-10-25] MEDS: POTASSIUM CHLORIDE 10 MEQ CAPSULE ER 20 MEQ PO (09:43)
[2023-10-25] MEDS: SODIUM CHLORIDE 0.9 % (FLUSH) 10 ML SYRINGE 5 ML IVF (09:44)
[2023-10-25] MEDS: atenoloL 25 MG TABLET PO (09:44)
[2023-10-25 11:00] VITALS: BP 109/63; PULSE 77; RESP 18; TEMP 36.4; O2SAT 96
[2023-10-25] MEDS: cefTRIAXone 2 GM in 0.9 % SODIUM CHLORIDE Mini-bag 100 ML IVPB (11:26)
--- NOTE | 2023-10-25 13:57 | PC.NURSE ---
Discharge: Patient pleasant and cooperative, A&O. VSS, afebrile. Patient denies pain this shift. Independent in room and to the bathroom. Discharge instructions provided to patient and family, all questions answered. IV removed with tip intact. D/C to home at 1345
== END 2023-10-25 13:45 | disposition home or self-care (01) | DRG 872 ==
LOC: ED 12:40 → MEDSURG 14:11
PROVIDERS: Hospitalist; Admitting Provider Family Medicine; Emergency Provider Family Medicine; Visit Provider Family Medicine
DX: A41.59 Other Gram-negative sepsis (principal); N39.0 Urinary tract infection, site not specified; Z68.1 Body mass index [BMI] 19.9 or less, adult; Z16.11 Resistance to penicillins; B96.1 Klebsiella pneumoniae [K. pneumoniae] as the cause of diseases classified elsewhere; R53.1 Weakness; R63.4 Abnormal weight loss; F10.10 Alcohol abuse, uncomplicated; I10 Essential (primary) hypertension; K21.9 Gastro-esophageal reflux disease without esophagitis; F41.9 Anxiety disorder, unspecified; E87.6 Hypokalemia; I87.2 Venous insufficiency (chronic) (peripheral); I73.00 Raynaud's syndrome without gangrene; E78.5 Hyperlipidemia, unspecified
CPT/HCPCS: 36415; 71045; 76770; 80048; 80053; 80069; 80076; 82803; 83605; 83735; 84145; 84484; 85025; 85027; 85610; 86140; 87040; 87086; 87186; 93005; 94761; 97112; 97116; 97162; 97165; 97530; 97535; 99285; A9270; J0696; J1650; J2543; J3475; J7030; J7120

== ENCOUNTER 2023-10-26 17:36 | Emergency (ER) | payer MEDICARE, BC, SELFPAY ==
[2023-10-26 17:42] VITALS: BP 136/89; PULSE 87; RESP 16; TEMP 36.9; O2SAT 98; BMI 19.6
--- NOTE | 2023-10-26 17:57 | ED.GENADULT ---
HPI - General Adult General Time Seen by Provider: 17:58 Date Seen: 10/26/23 Chief complaint: Diarrhea Stated complaint: In 10/24-black stool-ref by triage nurse Time Seen by Provider: 10/26/23 17:48 Source: patient, RN notes reviewed and old records reviewed Mode of arrival: ambulatory Limitations: no limitations History of Present Illness HPI narrative: This 10-year-old female is referred by a triage nursing staff to return to the ER today. Patient was discharged from our hospital yesterday, had a UTI and met criteria for sepsis. It was Klebsiella species. She was initially on Zosyn, transition to ceftriaxone after ID consult and species identified as Klebsiella. She was discharged on oral cephalosporin. She took her 1st dose of cefdinir this morning. She has started having significant diarrhea today but no abdominal pain. No fevers or chills. She did have chills before going into the hospital with her UTI. These have not reoccurred. The stool has been dark and black colored down today. She also does note a hemorrhoid. No bright red blood. She has a remote history of C difficile colitis when I question her. She states she had a UTI for about a year and through all the different antibiotics, ended up with complication of C difficile colitis and diarrhea. She ate yogurt this morning, forgot to take her probiotic at home this morning but does have 1. Was on probiotics per her report in the hospital. She feels like her stomach is gurgling but no abdominal pain. She does feel like she could produce stool now, maybe has had about 6 diarrheal stools at home, is noting some fecal incontinence which is not normal for her. Diarrhea started today, was not happening in the hospital. Patient has been able to drink ample fluids, does not feel she is dehydrated. Related Data Home Medications ?Medication ?Instructions ?Recorded ?Confirmed spironolactone 25 mg tablet 25 mg PO DAILY 10/22/23 10/22/23 vitamin B complex-folic acid 0.4 1 tab PO DAILY 10/22/23 10/22/23 mg tablet (B Complex 1 (with folic acid)) Previous Rx's ?Medication ?Instructions ?Recorded gemfibrozil 600 mg tablet 600 mg PO DAILY #90 tabs 05/29/23 omeprazole 40 mg capsule,delayed 40 mg PO DAILY #90 caps 05/29/23 release atenolol 25 mg tablet 25 mg PO DAILY #30 tabs 10/25/23 cefdinir 300 mg capsule 300 mg PO BID 7 days #14 caps 10/25/23 Allergies Allergy/AdvReac Type Severity Reaction Status Date / Time fenofibrate Allergy Intermediate elevated Verified 10/22/23 10:07 transaminases potassium chloride Allergy Intermediate pruritis Verified 10/22/23 10:07 cefdinir Allergy Unknown decreased Verified 10/22/23 10:07 appetite, weight loss, diarrhea losartan AdvReac Intermediate pruritis Verified 10/22/23 10:07 Sulfamethoxazole / AdvReac Unknown nausea and Uncoded 10/22/23 10:07 trimethoprim vomiting Review of Systems Status of ROS: Reports: 6 or more systems reviewed and unremarkable except as noted in History and below [facility] Medical History Venous stasis dermatitis of both lower extremities ?I87.2 - Venous insufficiency (chronic) (peripheral) (ICD-10) Raynaud's phenomenon ?I73.00 - Raynaud's syndrome without gangrene (ICD-10) Prediabetes ?R73.03 - Prediabetes (ICD-10) Osteopenia ?M85.80 - Other specified disorders of bone density and structure, unspecified site (ICD-10) Mass of vulva ?N90.89 - Other specified noninflammatory disorders of vulva and perineum (ICD-10) Compression fracture of T6 vertebra ?S22.050A - Wedge compression fracture of T5-T6 vertebra, initial encounter for closed fracture (ICD-10) Calculus of kidney ?N20.0 - Calculus of kidney (ICD-10) Basal cell carcinoma (BCC) ?C44.91 - Basal cell carcinoma of skin, unspecified (ICD-10) Atherosclerosis of abdominal aorta ?I70.0 - Atherosclerosis of aorta (ICD-10) History of gout ?Z87.39 - Personal history of other diseases of the musculoskeletal system and connective tissue (ICD-10) History of colonic polyps (03/18/13) ?Z86.010 - Personal history of colonic polyps (ICD-10) Surgical History History of wisdom tooth extraction (03/18/13) ?K08.409 - Partial loss of teeth, unspecified cause, unspecified class (ICD-10) History of hysterectomy (03/18/13) ?Z90.710 - Acquired absence of both cervix and uterus (ICD-10) History of appendectomy (03/18/13) ?Z90.49 - Acquired absence of other specified parts of digestive tract (ICD-10) Family History Mother Breast cancer, Onset Age: 80 Daughter Breast cancer Father Myocardial infarction, Onset Age: 60 Other Empyema Social History Narrative: does not use illicit drugs former smoker occasional alcohol consumption What is your current living situation?: I presently have a place to live Problems where you live: no known problems Problems where you live details: na In the past 12 months, utilities in danger of being shut off: no In past 12 months, lack of transportation kept you from medical appts, meetings, work, or getting things needed for daily living: no In the past 12 mos, have been you worried that your food would run out before you had money to buy more?: never true In the past 12 mos, the food you bought just didn't last and you didn't have money to buy more?: never true Highest level of school completed/degree received: some college, no degree Smoking Status: Former smoker How often do you have a drink containing alcohol: 4 or more times a week How many standard drinks containing alcohol do you have on a typical day: 3 or 4 AUDIT-C Alcohol total score: 5 Non-prescribed substance use: denies use Caffeine: Yes (1 cup) How often does anyone, including family, friends and others, physically hurt you: never How often does anyone, including family, friends and others, insult or talk down to you: never How often does anyone, including family, friends and others, threaten you with harm: never How often does anyone, including family, friends and others, scream or curse at you: never Little interest or pleasure in doing things: not at all Feeling down, depressed, or hopeless: several days service: No Exam Const: Vital Signs, click to edit/add: Vital Signs - 24 hr 10/26/23 17:42 10/26/23 19:56 Temperature 98.5 F Pulse Rate [Pulse Oximeter] 87 72 Respiratory Rate 16 18 Blood Pressure [Ri ght Upper Arm] 136/89 127/81 Pulse Oximetry 98 95 Oxygen Delivery Me thod Room Air Room Air This 82-year-old female is alert, interactive, no apparent distress. Speaking in complete sentences, looks well. Sclera clear come conjugate gaze. Oropharynx with well hydrated and glistening membranes. Neck is supple, no adenopathy. Lungs are clear, good air entry, no wheezing or crackles. CV regular rate and rhythm, no murmur, normal S1-S2, no S3-S4. Abdomen is mildly distended but not tender, no rebound or guarding, no organomegaly or masses. She has gurgling bowel sounds as she describes. Her abdomen is completely benign on palpation however. No lower extremity edema noted at this time. Patient is ambulatory into the ED of her own accord. Documenting provider has reviewed patient's vital signs: yes Course Course ED Course: This 82-year-old female is coming in with diarrhea, certainly could be antibiotic associated. There was some concern of melena, will check for fecal occult blood. Cefdinir is known to cause stool coloration in some, can cause dark stools or even reddish stools. She does have listed as cefdinir causing diarrhea and weight loss in her chart before. We do need to rule out C difficile colitis, will attempt to get this testing done here today. Will get basic labs with CBC and basic metabolic panel as well. I do not think she needs any imaging based on her clinical presentation and her examination at this time. Reevaluation(s) Time of Reevaluation #1: 19:40 Reevaluation #1: Reviewed that Annie fecal occult blood is negative, she is not having active GI bleeding. Her stool is likely changed color from the antibiotic use, it is not super common in adults from my experience but certainly can happen in the literature. We do need to rule out C difficile colitis but do not think she requires hospitalization, will not make her wait the time it takes to get this test back. She understands if it is positive that we will send in oral vancomycin and she will start this tomorrow. She will say on the cefdinir, discussed the importance of trying to complete this antibiotic, she had positive blood cultures as well as urine culture with Klebsiella. If she cannot tolerate the cefdinir antibiotic, will need to work with her primary care provider to see if there is possibly alternate cephalosporin or other antibiotic that she can tolerate. We will encourage her to stay on her probiotic, eat yogurt and await the C difficile. Vital Signs Vital signs: Initial Vital Signs Temperature 98.5 F 10/26/23 17:42 Temperature Source Temporal Artery Scan 10/26/23 17:42 Pulse Rate 87 10/26/23 17:42 Respiratory Rate 16 10/26/23 17:42 Blood Pressure 136/89 10/26/23 17:42 Blood Pressure Mean 104 10/26/23 17:42 Blood Pressure Position Sitting 10/26/23 17:42 Pulse Oximetry 98 10/26/23 17:42 Oxygen Delivery Method Room Air 10/26/23 17:42 Vital Signs Temperature 98.5 F 10/26/23 17:42 Pulse Rate 87 10/26/23 17:42 Respiratory Rate 16 10/26/23 17:42 Blood Pressure 136/89 10/26/23 17:42 Pulse Oximetry 98 10/26/23 17:42 Oxygen Delivery Method Room Air 10/26/23 17:42 Temperature 98.5 F 10/26/23 17:42 Pulse Rate 72 10/26/23 19:56 Respiratory Rate 18 10/26/23 19:56 Blood Pressure 127/81 10/26/23 19:56 Pulse Oximetry 95 10/26/23 19:56 Oxygen Delivery Method Room Air 10/26/23 19:56 Medical Decision Making Lab Data Lab results reviewed: Yes I reviewed the patient's lab results Labs: Lab Results 10/26/23 10/26/23 Range/Units 18:13 18:35 WBC 8.05 (4.50-11.00) K/uL RBC 3.47 L (4.00-5.20) m/uL Hgb 12.1 (12.0-16.0) gm/dL Hct 33.6 (33.0-51.0) % MCV 97 (80-100) fL MCH 35 H (26-34) pg MCHC 36 (32-36) gm/dL RDW Coeff of Michelle 11.9 (11.5-15.5) % Plt Count 202 (140-440) K/uL Neut % (Auto) 64.7 (42.0-72.0) % Lymph % (Auto) 23.1 (20-44) % [place] % (Auto) 7.0 (0.0-11.0) % Eos % (Auto) 2.5 (0.0-7.0) % Baso % (Auto) 0.5 (0.0-3.0) % Neut # (Auto) 5.21 (1.7-7.0) K/uL Lymph # (Auto) 1.86 (0.90-2.90) K/uL [place] # (Auto) 0.60 (0.00-0.90) K/UL Eos # (Auto) 0.20 (0.00-0.50) K/uL Baso # (Auto) 0.04 (0.00-0.30) K/uL Abs Immat Gran (auto) 0.18 (0.00-0.30) K/uL Imm/Tot Granulo (auto) 2.2 % Sodium 137 (135-149) mmol/L Potassium 3.6 (3.6-5.1) mmol/L Chloride 106 (96-114) mmol/L Carbon Dioxide 19 L (20-32) mmol/L Anion Gap 12 (7-15) mEq/L BUN 18 (7-30) mg/dL Creatinine 0.7 (0.5-1.5) mg/dL Estimated Creat Clear 37.91 Estimated GFR 87 ml/min Glucose 97 (60-115) mg/dL Lactate 1.6 (0.5-1.9) mmol/L Calcium 9.0 (8.4-10.6) mg/dL C-Reactive Protein 2.0 H (0.5-1.0) mg/dL Stool Occult Blood Negative (Negative) Stl C. diff Tox B Gene Negative (Negative) Stl C. diff [id number] PRESUMPTIVE NEGATIVE (Negative) Discharge Plan Discharge Clinical Impression: Diarrhea Qualifiers: Diarrhea type: unspecified type Qualified Code(s): R19.7 - Diarrhea, unspecified Patient Disposition: Home, Self-Care Condition: Stable Instructions: Acute Diarrhea (ED), Nutrition Tips for Relief of Diarrhea (ED) Additional Instructions: The diarrhea may be antibiotic associated but we will rule out C difficile colitis. We will call you if the C difficile test is positive and send in antibiotics for you to start tomorrow to treat this. You do need to stay on the cefdinir to treat the Klebsiella that was positive on your urine culture and blood culture from the hospitalization. Continue with probiotics and yogurt at home. Stay hydrated with ample drinking of fluids. Follow the handout for nutrition tips so as to not worsen your diarrhea. If you have ongoing diarrhea that is this problematic with a negative C difficile, may need to work with your primary care provider on a different antibiotic. Activity Level: Activity as Tolerated Prescriptions: No Action spironolactone 25 mg tablet 25 mg PO DAILY vitamin B complex-folic acid [B Complex 1 (with folic acid)] 0.4 mg tablet 1 tab PO DAILY cefdinir 300 mg capsule 300 mg PO BID 7 Days Qty: 14 0RF Rx Instructions: take one tablet with morning meal and one table with evening meal starting 10/25 atenolol 25 mg Tablet 25 mg PO DAILY Qty: 30 0RF gemfibrozil 600 mg tablet 600 mg PO DAILY Qty: 90 1RF omeprazole 40 mg capsule,delayed release(DR/EC) 40 mg PO DAILY Qty: 90 1RF Follow Up/Referrals: Provider,Not a Local [Primary Care Provider] - Stand Alone Forms: [employer] Info Instructions
[2023-10-26 18:44] LABS: Lactate* 1.6 mmol/L (0.5-1.9)
[2023-10-26 18:47] LABS: Basophils Absolute Auto 0.04 K/uL (0.00-0.30); Basophils Percent Auto 0.5 % (0.0-3.0); Eosinophils Percent Auto 2.5 % (0.0-7.0); Hematocrit 33.6 % (33.0-51.0); Hemoglobin* 12.1 gm/dL (12.0-16.0); Immature Granulocytes Abs Auto 0.18 K/uL (0.00-0.30); Immature Granulocytes Pct Auto 2.2 %; Lymphocytes Absolute Auto 1.86 K/uL (0.90-2.90); Lymphocytes Percent Auto 23.1 % (20-44); Mean Corpuscular HGB Conc 36 gm/dL (32-36); Mean Corpuscular Hemoglobin 35 pg (26-34); Mean Corpuscular Volume 97 fL (80-100); Neutrophils Absolute Auto 5.21 K/uL (1.7-7.0); Neutrophils Percent Auto 64.7 % (42.0-72.0); Platelet Count* 202 K/uL (140-440); RDW Coefficient of Variation % 11.9 % (11.5-15.5); Red Blood Count 3.47 m/uL (4.00-5.20); White Blood Count* 8.05 K/uL (4.50-11.00)
[2023-10-26 18:57] LABS: Slide Review Reflex No
[2023-10-26 18:57] LABS: Fecal Occult Blood* Negative (Negative)
[2023-10-26 19:01] LABS: Chloride* 106 mmol/L (96-114); Potassium* 3.6 mmol/L (3.6-5.1); Sodium* 137 mmol/L (135-149)
[2023-10-26 19:03] LABS: Creatinine* 0.7 mg/dL (0.5-1.5); Est. Creatinine Clearance* 37.91; Estimated Glomerular Filt Rate 87 ml/min
[2023-10-26 19:04] LABS: Anion Gap 12 mEq/L (7-15); Blood Urea Nitrogen* 18 mg/dL (7-30); Carbon Dioxide* 19 mmol/L (20-32); Glucose* 97 mg/dL (60-115)
[2023-10-26 19:56] VITALS: BP 127/81; PULSE 72; RESP 18; O2SAT 95
[2023-10-27 16:05] LABS: C.Difficile Negative (Negative); CDIFFEPI 027 PRESUMPTIVE NEGATIVE (Negative)
== END 2023-10-26 19:58 | disposition home or self-care (01) ==
PROVIDERS: Emergency Provider Family Medicine
DX: R19.7 Diarrhea, unspecified (principal)
CPT/HCPCS: 36415; 80048; 82270; 83605; 85025; 86140; 87493; 99283; 99284

== ENCOUNTER 2023-11-14 09:13 | Outpatient (CLI) | payer MEDICARE, BC, SELFPAY | END 2023-11-14 09:14 | disposition home or self-care (01) | LOC: NFLDREF 11-17 06:06 | PROVIDERS: Visit Provider Physician Assistant Medical | DX: N39.0 Urinary tract infection, site not specified (principal) | CPT/HCPCS: 87086 ==

== ENCOUNTER 2023-12-07 08:05 | Outpatient (CLI) | payer MEDICARE, BC, SELFPAY | END 2023-12-07 08:06 | disposition home or self-care (01) | PROVIDERS: PCP Physician Assistant Medical; Visit Provider Physician Assistant Medical | DX: E78.5 Hyperlipidemia, unspecified (principal); I10 Essential (primary) hypertension | CPT/HCPCS: 80053; 80061 ==

== ENCOUNTER 2023-12-21 14:34 | Outpatient (CLI) | payer MEDICARE, BC, SELFPAY ==
--- NOTE | 2023-12-21 15:00 | CRLHL7_ITS ---
For Patients: As a result of the Century Cures Act, medical imaging exams and procedure reports are released immediately into your electronic medical record. You may view this report before your referring provider. If you have questions, please contact your health care provider. DXA BONE MINERAL DENSITY STUDY Reason for exam: Age-related osteoporosis without current pathology. Current height (in): 65. Weight (lb): 121. Menopause age: 52. Ethnicity: White. 1. Have you had a previous hip or vertebral fracture? No. 2. Have you had any fractures during your adult life which did not result from significant trauma (e.g., auto accident)? No. 3. Did either of your parents have a hip fracture? Yes. 4. Do you smoke? No. 5. Have you ever taken Glucocorticoids? No. 6. Do you have rheumatoid arthritis? No. 7. Do you have secondary osteoporosis? No. 8. Do you drink 3 or more alcoholic drinks per day? Yes. 9. Are you being treated for osteoporosis? No. 10. Have you ever taken any of the following medications: Actonel, Evista, Fosamax, Miacalcin, Reclast, Boniva, Forteo, HRT (i.e., estrogen/hormone therapy), Protelos, Prolia, Vitamin D, Calcium, other ??? please specify. ANSWER: No. 11. Do you have any of the following medical conditions: Anorexia or bulimia, asthma or emphysema, end stage renal disease, hyperparathyroidism, any seizure disorders, cancer, inflammatory bowel diseases, hysterectomy, other ??? please specify. ANSWER: Yes, hysterectomy. 12. What was your maximum height (inches)? 66.5. 13. Do you perform weight bearing exercise regularly? No. 14. Do you regularly consume dairy products? Yes. 15. Do you drink caffeinated beverages? Yes. 16. At what age did your period start? 15. 17. Are you premenopausal? No. 18. How many full-term pregnancies have you had? 2. 19. Have you ever missed your period for more than 6 months in a row (not including or menopause)? No. TECHNIQUE: Bone mineral density study was performed using the [employer]. FINDINGS: The results of the study expressed as bone mineral density (BMD) are as follows: Lumbar spine L1 to L4: BMD: 0.851 g/cm2. T-score: -1.8. Z-score: 0.9 Neck Left: BMD: 0.494 g/cm2. T-score: -3.2. Z-score: -0.8 Right: BMD: 0.546 g/cm2. T-score: -2.7. Z-score: -0.4 Total Left: BMD: 0.685 g/cm2. T-score: -2.1. Z-score: 0.0 Right: BMD: 0.717 g/cm2. T-score: -1.8. Z-score: 0.3 IMPRESSION: Osteoporosis. *Comparison exams done prior to 10/2019 were performed on different unit, [employer]. COMPARISON: Compared with scan of 10/14/2021, the bone mineral density has increased by 0.8 percent at the spine and decreased by 6.1 percent at the hip. Compared with scan of 04/02/2015, the bone mineral density has decreased by 3.3 percent at the spine and decreased by 11.6 percent at the hip. KRYSTA SMITH M.D. Transcribed: 6:31 p.m. [email or web address]/Dictated by: Krysta Smith MD @ 12/25/2023 7:57:00 AM (Electronically Signed)
== END 2023-12-21 14:35 | disposition home or self-care (01) ==
LOC: RAD 14:35
PROVIDERS: PCP Physician Assistant Medical; Visit Provider Physician Assistant Medical
DX: M81.0 Age-related osteoporosis without current pathological fracture (principal); M85.89 Other specified disorders of bone density and structure, multiple sites; M85.80 Other specified disorders of bone density and structure, unspecified site
CPT/HCPCS: 77080

== ENCOUNTER 2024-10-31 11:33 | Outpatient (CLI) | payer MEDICARE, BC, SELFPAY ==
--- OUTSIDE RECORDS SUMMARY | 2024-10-10 06:06 | XMS_ITS | Continuity of Care Document ---
Author Organization [facility] Address [address] [address] [place] [address] Phone Care Team Providers Care Chiller Technician Name Role Phone Raphael Jeffers DO Unavailable Unavailable Allergies, Adverse Reactions, Alerts Substance Reaction Status Criticality No Known Allergies Active No Inform ation Medications Medication Instructions Dosage Effective Dates (start - stop) Status Comments spironolactone 25 mg tablet take 1 tablet by oral route every day 25 MG - Active gemfibrozil 600 mg tablet take 1 tablet by oral route 2 times every day 30 minutes before morning and evening meal 600 MG - Active vitamin B complex tablet - Active atenolol 25 mg tablet take 1 tablet by o ral route every day 25 MG - Active omeprazole 40 mg capsule,delayed release take 1 capsule by oral route every day before a meal 40 MG - Active Probiotic 20 billion cell capsule - Active Procedures Procedure Date Offic Cons New/estab Mod-hi Routine Serum Collection Advance Directives Directive Yes / No Effective Date File Name No Information Encounters Encounter Description Practice Location Reason(s) For Visit Diagnoses Date Provider Providers Copied on Encounter [facility], [address] [address], [place], [id number], [place] tel:[phone] [facility] No Information Zeyad He. [address] [facility], [facility] [address], [place], [id number] , [place]. tel:[phone] Offic Cons New/estab Mod-hi [facility], [address] [address], [place], [id number], [place] tel:[phone] [facility] GI Symptoms or Concerns (chief complaint) HematocheziaWeigh t lossEarly satietyAbnormal LFTs 5 Dwightailin He. [address] [facility], [address], [place], [id number] , [place]. [phone] Referring Provider: Rosio Houston NP, [address] [place], [address]. tel:[phone] Family History Family Member Type Diagnosis Age At Onset No Information Payers Payer name Insurance type Covered republican ID Authoriza tion(s) No Information Social History Type Description Quantity Date Captured Comments Alcohol Use Details Unknown Caffeine Use Details Unknown Tobacco Use Status No Information Smoking Status No Information Sex Female Chief Complaint And Reason For Visit No Information Reason For Referral Reason For Referral No Information Plan Of Treatment Date Type Action Status Referral Ordered: Colonoscopy Appointment date/timeframe: 10/09/2024 ordered Referral Ordered: EGD Appointment date/timeframe: 10/09/2024 ordered History Of Present Illness Encounter Date Complaint History Of Prese nt Illness GI Symptoms or Concerns Denice Gallardo is a pleasant 83-year-old female kindly referred by Rosio Houston NP for further evaluation of hematochezia, early satiety and weight loss. She is joined by her daughter Mariama in clinic today.The patient's primary concerns today are early satiety and weight loss. Symptoms began after patient had suspected norovirus followed by another influenza-like infection earlier this year but denies any formal testing for either of these. Her weight has gone down from 124 pounds to 113 pounds over the past 2-3 months. She has attempted to eat smaller, more frequent meals but continues to tolerate PO intake. She will occasionally wake up with sudden onset nausea and vomiting and reports that this will last for several days and occurs every 6 weeks or so.Additionally, she reports worsening fecal incontinence and occasional hematochezia. Fecal incontinence frequently, and most commonly with loose stool. Bowel habits have widely ranged between Tok 2 and 6. Hematochezia typically will occur once every 6 weeks and typically resolves spontaneously. She believes she has a hemorrhoid which might be contributing to her symptoms. Last colonoscopy was greater than 10 years ago in [place] but cannot recall findings at that time. She has no known family history of colorectal cancer.Of note, patient currently drinks 5 L of wine every 4 days. Her PCP has extensively counseled her on reducing her alcohol consumption which patient is agreeable to and planning established with a substance abuse counselor in [facility] MEDICAL HISTORY: HTN, HLD, GERD, Raynaud's, hiatal hernia, anxietyPAST SURGICAL HISTORY: Hysterectomy, D&C, 2 vaginal deliveriesFAMILY HISTORY: No known family history of colorectal cancer or autoimmune conditionsSOCIAL HISTORY: Former smoker, quit 50 years ago, 5 L of wine every 4 days, denies any recreational drug useENDOSCOPIC HISTORY:Colonoscopy: Last performed 10 years ago in [place] but cannot recall findings. She does report that she will underwent serial colonoscopies due to polyp findings in the past but states that this was greater than 20 years ago.She reports having 1 prior EGD in the past but cannot recall findings or dateJoined by her daughter Mariama Functional Status Date Functional Assessmen t No Information Instructions Date Instruction Additional Infor mation No Information Assessments Type Assessment Date No Information Patient Care Teams Name Effective Dates (start - stop) Status Members No Information
--- NOTE | 2024-10-31 13:21 | P.ANES_ITS ---
Anesthesia Charges Start Date/Time Anesthesia Start Date: 10/31/24 Anesthesia Start Time: 12:33 Stop Date/Time Anesthesia Stop Date: 10/31/24 Anesthesia Stop Time: 13:46 Summary Extremes of Age - Over 70 or under 1: MDA Coding CPT Codes CPT Codes: ANES UPR LWR GI NDSC PX - 05154 ([id number]) P3 - PATIENT W/SEVERE SYS DISEASE, QK - MANUFACTURING ENGINEERING TECHNOLOGIST 2-4 CNCRNT ANES PROC, QX - PRE PRESS MANAGER SVC W/ MD MED DIRECTION Additional Codes: Summary - Extremes of Age - Over 70 or under 1: MDA ([id number])
--- NOTE | 2024-10-31 13:21 | W.ANESCHARGE ---
Anesthesia Charges Start Date/Time Anesthesia Start Date: 10/31/24 Anesthesia Start Time: 12:33 Stop Date/Time Anesthesia Stop Date: 10/31/24 Anesthesia Stop Time: 13:46 Summary Extremes of Age - Over 70 or under 1: MDA Coding CPT Codes CPT Codes: ANES UPR LWR GI NDSC PX - 93305 ([id number]) P3 - PATIENT W/SEVERE SYS DISEASE, QK - NEW ORDER CLERK 2-4 CNCRNT ANES PROC, QX - JAVA APPLICATION DEVELOPER SVC W/ MD MED DIRECTION Additional Codes: Summary - Extremes of Age - Over 70 or under 1: MDA ([id number])
--- NOTE | 2024-10-31 13:48 | P.ANES_ITS ---
Anesthesia Charges Start Date/Time Anesthesia Start Date: 10/31/24 Anesthesia Start Time: 12:33 Stop Date/Time Anesthesia Stop Date: 10/31/24 Anesthesia Stop Time: 13:46 Summary Extremes of Age - Over 70 or under 1: CHARGE MASTER SPECIALIST Coding CPT Codes CPT Codes: ANES UPR LWR GI NDSC PX - 77485 ([id number]) P3 - PATIENT W/SEVERE SYS DISEASE, QX - CHARGE MASTER SPECIALIST SVC W/ MD MED DIRECTION, QK - TIMBER HARVESTER OPERATOR 2-4 CNCRNT ANES PROC Additional Codes: Summary - Extremes of Age - Over 70 or under 1: CHARGE MASTER SPECIALIST ([id number])
--- NOTE | 2024-10-31 13:48 | W.ANESCHARGE ---
Anesthesia Charges Start Date/Time Anesthesia Start Date: 10/31/24 Anesthesia Start Time: 12:33 Stop Date/Time Anesthesia Stop Date: 10/31/24 Anesthesia Stop Time: 13:46 Summary Extremes of Age - Over 70 or under 1: BUSINESS ADVISOR Coding CPT Codes CPT Codes: ANES UPR LWR GI NDSC PX - 00110 ([id number]) P3 - PATIENT W/SEVERE SYS DISEASE, QX - BUSINESS ADVISOR SVC W/ MD MED DIRECTION, QK - YARN WEIGHER 2-4 CNCRNT ANES PROC Additional Codes: Summary - Extremes of Age - Over 70 or under 1: BUSINESS ADVISOR ([id number])
--- OUTSIDE RECORDS SUMMARY | 2024-11-01 00:49 | XMS_ITS | Clinical Summary ---
Author Organization [facility] Address [address] [place] [address] Care Team Providers Care Shuttle Spotter Name Role Phone Gurdeep Galdamez MD Primary Care Provider [phone] Allergies Active Allergy Reactions Criticality Noted Date Comments Fenofibrate Nausea And Vomiting 04/13/2016 Potassium Chloride Itching 04/13/2016 Medications folic acid-vit b6-vit b12, 2.5-25-2mg, (FOLBIC) 2.5-25-2 mg tab Take 1 tablet by mouth once daily. 0 04/13/2016 Active losartan (COZAAR) 100 mg tablet Take 1 tablet by mouth once daily. 0 04/13/2016 Active gemfibrozil (LOPID) 600 mg tablet Take 1 tablet by mouth 2 times daily before meals. 0 04/13/2016 Active esomeprazole (NEXIUM) 40 mg capsule Take 1 capsule by mouth once daily before a meal. 0 04/13/2016 Active atenolol (TENORMIN) 25 mg tablet Take 1 tablet by mouth once daily. 0 04/13/2016 Active atorvastatin (LIPITOR) 20 mg tablet Take 1 tablet by mouth at bedtime. 0 04/13/2016 Active aspirin (ECOTRIN) 81 mg enteric coated tablet Take 1 tablet by mouth once daily with a meal. 0 04/13/2016 Active multivitamin (MVI) tablet Take 1 tablet by mouth once daily. 0 04/13/2016 Active Active Problems Problem Noted Date Diagnosed Date Recurrent UTI 04/13/2016 Social History Tobacco Use Types Packs/Day Years Used Date Smoking Tobacco: Former Cigarettes 1 10 0 07/14/1963 - 07/13/1973 Smokeless Tobacco: Never Tobacco Cessation:Counseling Given: Yes Alcohol Use Standard Drinks/Week Comments Yes 6 (1 standard drink = 0.6 oz pur e alcohol) 6 drinks per week Comments No Sex and Gender Information Value Date Recorded Sex Assigned at Not on file Legal Sex Female 9:00 AM FERRYBOAT DECKHAND Gender Identity Not on file Sexual Orientation Not on file Obstetrics History Last Filed Vital Signs Vital Sign Reading Time Taken Comments Blood Pressure 144/76 06/01/2017 1:59 PM FERRYBOAT DECKHAND Pulse 89 06/01/2017 1:59 PM FERRYBOAT DECKHAND Temperature 36.7 C (98.1 F) 04/13/2016 2:41 PM FERRYBOAT DECKHAND Respiratory Rate - - Oxygen Saturation 97% 06/01/2017 1:59 PM FERRYBOAT DECKHAND Inhaled Oxygen Concentration - - Weight 56.3 kg (124 lb 3.2 oz) 06/01/2017 1:59 P M FERRYBOAT DECKHAND Height 167 cm (5' 5.75) 06/01/2017 1:59 PM FERRYBOAT DECKHAND Body Mass Index 20.2 06/01/2017 1:59 PM FERRYBOAT DECKHAND Plan of Treatment Health Maintenance Due Date Last Done Comments Tdap 1953 Depression screening for age 12+ 1954 Tetanus booster 1962 Pneumococcal series for age 50+ (1 of 1 - PCV) 1992 Zoster (shingles) series for age 50+ (1 of 2) 1992 DEXA/DXA scan for age 65+ 11/11/2007 RSV vaccine for adults or (1 - 1-dose 75+ series) 2017 BMI (ht and wt on same day) for age 18+ 06/01/2018 06/01/2017, 04/13/2016 COVID-19 vaccine series ( season) 2024 09/21/2021, 03/02/2021, 07/18/2020, Additional history exists Influenza Vaccine (Season Ended) 2025 Hepatitis B series for 19+ Aged Out N o longer eligible based on patient's age to complete this topic Insurance MEDICARE [place] ONLY [facility] AD[facility] Care Teams Shuttle Spotter Relationship Specialty Start Date End Date Gurdeep Galdamez MD PCP - General Family Practice 04/12/16
--- OUTSIDE RECORDS SUMMARY | 2024-11-01 00:49 | XMS_ITS | Clinical Summary ---
Author Organization [facility] Address [address] [place] [address] Care Team Providers Care Tar Heat Exchanger Cleaner Name Role Phone Candy Knight MD Primary Care Pr ovider Jose Ahuja MD Unavailable [phone] Allergies Active Allergy Reactions Criticality Noted Date Comments Fenofibrate Nausea and Vomiting 04/13/2016 Potassium Chloride Itching 04/13/2016 Medications atenolol (TENORMIN) 25 MG tablet Take 25 mg by mouth daily Active omeprazole (PRILOSEC) [address] capsule Take 40 mg by mouth daily Active multivitamin w/minerals (MULTI-VITAMIN) tablet Take 1 tablet by mouth daily Active aspirin (ASA) 81 MG chewable tablet Take 81 mg by mouth daily Active magnesium 250 MG tablet Take 1 tablet by mouth daily Active spironolactone (ALDACTONE) 25 MG tablet Take 25 mg by mouth daily Active psyllium (METAMUCIL/KONS YL) capsule Take 1 capsule by mouth daily Active Immunizations Immunization Administration Dates Next Due Influenza Vaccine 65+ (Fluzone HD) 03/16/2023 Social History Tobacco Use Types Packs/Day Years Used Date Smoking Tobacco: Former Cigarettes Tobacco Cessation:Counseling Given: Not Answered Alcohol Use Standard Drinks/Week Comments Yes 0 (1 standard drink = 0.6 oz pur e alcohol) occ Adolescent Education Answer Date Record ed Getting School Help Needed Not on file 03/27 Comments Unknown Sex and Gender Information Value Date Recorded Sex Assigned at Not on file Legal Sex Female 9:15 AM AIRPORT OPERATIONS MANAGER Gender Identity Not on file Sexual Orientation Not on file Last Filed Vital Signs Vital Sign Reading Time Taken Comments Blood Pressure 111/70 05/16/2023 10:54 AM AIRPORT OPERATIONS MANAGER Pulse 67 05/16/2023 10:54 AM AIRPORT OPERATIONS MANAGER Temperature - - Respiratory Rate - - Oxygen Saturation 100% 05/16/2023 10:54 AM AIRPORT OPERATIONS MANAGER Inhaled Oxygen Concentration - - Weight 52.3 kg (115 lb 3.2 oz) 05/16/2023 10:54 AM AIRPORT OPERATIONS MANAGER Height 166.4 cm (5' 5.5) 05/16/2023 10:54 AM CS T Body Mass Index 18.88 05/16/2023 10:54 AM AIRPORT OPERATIONS MANAGER Plan of Treatment Health Maintenance Due Date Last Done Comments ADVANCE CARE PLANNING 1942 ANNUAL REVIEW OF HM ORDERS 1940 DEXA 1940 FALL RISK ASSESSMENT 11/11/2007 MEDICARE ANNUAL WELLNESS VISIT 11/11/2007 ZOSTER VACCINE (2 of 3) 05/23/2012 03/28/2012 RSV VACCINE (1 - 1-dose 75+ series) 2017 DTAP/TDAP/TD VACCINE (2 - Td or Tdap) 03/15/2021 03/15/2011 COVID-19 VACCINE ( season) 2024 03/30/2023, 09/21/2021, 03/02/2021, Additional history exists PHQ-2 (once per calendar year) 2024 INFLUENZA VACCINE (Season Ended) 2025 03/16/2023, 03/11/2022, 03/10/2021, Additional history exists PNEUMOCOCCAL VACCINE 50+ YEARS Completed 09/21/2017, 03/25/2014 HPV VACCINE Aged Out No longer eligi ble based on patient's age to complete this topic MENINGITIS VACCINE Aged Out No longer eligible based on patient's age to complete this topic Insurance [place] Care Teams Tar Heat Exchanger Cleaner Relationship Specialty Start Date End Date Candy Knight MD PCP - General Family Medicine 05/02/23 Jose Ahuja MD [address] [place] [address] Assigned Heart and Vascular Provider 04/15/23
== END 2024-10-31 11:34 | disposition home or self-care (01) ==
LOC: OP CLINIC 11:33
PROVIDERS: PCP Nurse Practitioner Family; Visit Provider Surgery
DX: R63.4 Abnormal weight loss (principal); R63.0 Anorexia; R13.10 Dysphagia, unspecified; D12.0 Benign neoplasm of cecum; D12.2 Benign neoplasm of ascending colon; D12.3 Benign neoplasm of transverse colon; K64.4 Residual hemorrhoidal skin tags; K31.7 Polyp of stomach and duodenum; K22.89 Other specified disease of esophagus
CPT/HCPCS: 00813; 43239; 45385; 88305; 99100; J2704; J3490

== ENCOUNTER 2024-11-04 15:36 | Observation (INO) | payer MEDICARE, BC, SELFPAY ==
[2024-11-04] VITALS (12 sets, daily range): BP systolic 104–145; BP diastolic 70–98; PULSE 81–91; RESP 11–24; TEMP 36.7–36.9; O2SAT 94–99; BMI 19.0
--- OUTSIDE RECORDS SUMMARY | 2024-11-04 15:39 | XMS_ITS | Clinical Summary ---
Author Organization [facility] Address [address] [place] [address] Care Team Providers Care Category Analyst Name Role Phone Gurdeep Galdamez MD Primary Care Provider [phone] Allergies Active Allergy Reactions Criticality Noted Date [...] Noted Date Diagnosed Date Recurrent UTI 04/13/2016 Encounters Date Type Department Care Team Description 11/01/2024 Lab Requisition [facility] [phone] Khoa Xie MD from Last 3 Months Social History Tobacco Use Types Packs/Day Years [...] on file Legal Sex Female 9:00 AM CERTIFIED PROCEDURAL CODER Gender Identity Not on file Sexual Orientation Not on file Obstetrics History Last Filed Vital Signs Vital Sign Reading Time Taken Comments Blood Pressure 144/76 06/01/2017 1:59 PM CERTIFIED PROCEDURAL CODER Pulse 89 06/01/2017 1:59 PM CERTIFIED PROCEDURAL CODER Temperature 36.7 C (98.1 F) 04/13/2016 2:41 PM CERTIFIED PROCEDURAL CODER Respiratory Rate - - Oxygen Saturation 97% 06/01/2017 1:59 PM CERTIFIED PROCEDURAL CODER Inhaled Oxygen Concentration - - Weight 56.3 kg (124 lb 3.2 oz) 06/01/2017 1:59 P M CERTIFIED PROCEDURAL CODER Height 167 cm (5' 5.75) 06/01/2017 1:59 PM CERTIFIED PROCEDURAL CODER Body Mass Index 20.2 06/01/2017 1:59 PM CERTIFIED PROCEDURAL CODER Plan of Treatment Health Maintenance Due Date [...] on patient's age to complete this topic Procedures Procedure Name Priority Date/Time Associated Diagnosis Comments LAB TRACKING EVENT Routine 10/31/2024 1: 10 PM CDT PATH TISSUE EXAM Routine 10/31/2024 12:4 5 PM CDT from Last 3 Months Results * LAB TRACKING EVENT (10/31/2024 1:10 PM CDT) Other (Other) Client Collect / Unknown 10/31/2024 1:10 PM CDT 11/01/2024 6:20 AM CDT us Khoa Xie MD LAB BILL ONLY Final Resu lt [facility] [address] [place] [address], * PATH TISSUE EXAM (10/31/2024 12:45 PM CDT) Case Report Pathology Report Case: [id number] Authorizing Provider: Khoa Xie MD Collected: 10/31/2024 1245 Ordering Location: [facility] Received: 11/01/2024 1154 Pathologist: Jane Chaudhry DO Specimens: A) - Duodenum Biopsy B) - Gastric Biopsy C) - Antrum Biopsy D) - Stomach Biopsy, random E) - Esophageal Biopsy, z-line F) - Distal Esophagus Biopsy G) - Mid Esophagus Biopsy H) - Cecal Polyp, multiple polyps I) - Ascending Colon Polyp, multiple polyps J) - Hepatic Flexure Polyp, multiple polyps K) - Transverse Colon Polyp, multiple polyps 11/04/2024 11:00 AM CDT [facility] Bundle LABORATORY-C ENTRAL LABORATORY Final Diagnosis A) DUODENUM, BIOPSY: 1. Normal duodenal mucosa 2. Negative for celiac disease and other enteropathy B) STOMACH, BODY, POLYP, BIOPSY: 1. Fundic gland polyp 2. Negative for dysplasia and malignancy 3. Negative for gastritis and Helicobacter organisms C) STOMACH, ANTRUM, POLYPS, BIOPSIES: 1. Polypoid reactive foveolar hyperplasia, likely secondary to reactive gastropathy, see comment 2. Negative for dysplasia and malignancy 3. Negative for chronic inflammation and Helicobacter D) STOMACH, RANDOM, BIOPSY: 1. Non-erosive reactive gastropathy (see comment) a. Sampling: Antral and body mucosae b. Distribution: Antral mucosa 2. Negative for inflammation, atrophy and Helicobacter E) ESOPHAGUS, Z-LINE, BIOPSY: 1. Columnar mucosa with intestinal metaplasia (see comment) 2. Negative for dysplasia 3. Squamous mucosa with nonspecific regenerative change, cannot exclude reflux F) ESOPHAGUS, DISTAL, BIOPSY: 1. Normal esophageal squamous mucosa 2. Negative for reflux changes and eosinophilic esophagitis 3. Negative for columnar mucosa G) ESOPHAGUS, MID, BIOPSY: 1. Normal esophageal squamous mucosa 2. Negative for reflux changes and eosinophilic esophagitis 3. Negative for columnar mucosa H) COLON, CECUM, POLYPECTOMIES: 1. Tubular adenomas (7) and normal colonic mucosa (clinically, 8 polyps) 2. Negative for high grade dysplasia 3. Per the colonoscopy report: a. Polyp sizes: 3 mm - 6 mm b. Resection: Complete c. Retrieval: Complete I) COLON, ASCENDING POLYPECTOMIES: 1. Tubular adenomas (7) 2. Negative for high grade dysplasia 3. Per the colonoscopy report: a. Polyp sizes: 3 mm - 8 mm b. Resection: Complete c. Retrieval: Complete J) COLON, HEPATIC FLEXURE, POLYPECTOMIES: 1. Tubular adenomas (3) 2. Negative for high grade dysplasia 3. Per the colonoscopy report: a. Polyp sizes: 6 mm - 8 mm b. Resection: Complete c. Retrieval: Complete K) COLON, TRANSVERSE, POLYPECTOMIES: 1. Tubular adenomas (3), at least one of which is consistent with an advanced adenoma due to size 2. Negative for high grade dysplasia 3. Per the colonoscopy report: a. Polyp sizes: 3 mm - 11 mm b. Resection: Complete c. Retrieval: Complete 11/04/2024 11:00 AM CDT [facility] at 1100 CDT Comment C) This is a reactive lesion that can be seen with gastric mucosal injury of various etiologies. Given the absence of chronic inflammation on this biopsy and reactive gastropathy in background biopsies (see part D) this most likely represents a manifestation of reactive gastropathy. D) The likely etiology is an ongoing non-inflammatory type mucosal injury due to a chemical type of injury; this may be due to ingestion of non-steroidal anti-inflammatory drugs, aspirin (via prostaglandin-medi ated injury), excess alcohol, corticosteroids, or bile/alkaline reflux, the latter usually in the setting of a gastroenteric anastomosis. E) The intestinal metaplasia seen in this biopsy if seen in association with an endoscopically identified columnar lined esophagus is in keeping with Jimenez's esophagus; however, in the absence of these endoscopic findings this may represent intestinal metaplasia of the gastroesophageal junction which is a finding of uncertain clinical significance. There is no evidence of dysplasia. K) Advanced adenoma of the colorectum is defined by the [employer] [employer] (ACG) as an adenoma that is 1 cm or more in size, contains an appreciable villous component, or has high grade dysplasia (Zoe Marmolejo. [2008] Gastroenterology, PMID - [id number]). Patients with advanced adenomas are at an increased risk for synchronous and metachronous additional advanced adenomas. Appropriate follow-up is suggested. H-K) We are aware of the patient now having at least 10 adenomatous polyps of the colon. Consideration for a referral to a genetics specialist for possible genetic testing to evaluate for a potential polyposis syndrome is reasonable as the results may have implications for both the patient and immediate family members. Reference: Beata Rader, et al. Analysis of the Application of Professional Society Screening Guidelines for Colorectal Polyposis Syndromes at a Single Institution. Mod Pathol. 2023;37(10):205394. PMID: [id number] 11/04/2024 11:00 AM CDT [facility] Clinical Information The patient is a 83-year-old with symptoms of dysphagia and weight loss. Upper endoscopy examination revealed an irregular Z-line, multiple gastric polyps, and otherwise unremarkable stomach. Colonoscopy examination revealed multiple polyps. 11/04/2024 11:00 AM CDT [facility] Gross Description A) Received in formalin are 4 marino mucosal fragments averaging 3 mm in greatest dimension, which are entirely submitted in one cassette. It is labeled with the patient's name and designated duodenum. B) Received in formalin are 3 marino mucosal fragments ranging from 1 mm to 3 mm in greatest dimension, which are entirely submitted in one cassette. It is labeled with the patient's name and designated stomach, gastric body. C) Received in formalin is a marino mucosal fragment measuring 4 mm in greatest dimension, which is entirely submitted in one cassette. It is labeled with the patient's name and designated stomach, antral. D) Received in formalin are 7 marino mucosal fragments ranging from 1 mm to 5 mm in greatest dimension, which are entirely submitted in one cassette. It is labeled with the patient's name and designated stomach, random. E) Received in formalin are 2 marino mucosal fragments averaging 3 mm in greatest dimension, which are entirely submitted in one cassette. It is labeled with the patient's name and designated esophagus Z-line. F) Received in formalin are 4 marino mucosal fragments averaging 4 mm in greatest dimension, which are entirely submitted in one cassette. It is labeled with the patient's name and designated esophagus distal. G) Received in formalin are 4 marino mucosal fragments averaging 3 mm in greatest dimension, which are entirely submitted in one cassette. It is labeled with the patient's name and designated esophagus, mid. H) Received in formalin is a 23 x 9 x 2 mm aggregate of marino mucosa. Submitted in 2 cassettes. It is labeled with the patient's name and designated cecum. I) Received in formalin is a 23 x 11 x 3 mm aggregate of marino mucosa. Submitted in 2 cassettes. It is labeled with the patient's name and designated ascending colon. J) Received in formalin is a 20 x 5 x 1 mm aggregate of marino mucosa. Submitted in one cassette. It is labeled with the patient's name and designated hepatic flexure. K) Received in formalin is a 21 x 7 x 1 mm aggregate of marino mucosa. Submitted in one cassette. It is labeled with the patient's name and designated transverse colon. Lupe Rader Noon 11/01/2024 12:43 PM 11/04/2024 11:00 AM CDT [facility] Bundle [facility] Microscopic Description The final diagnosis is based on microscopic examination of appropriate sections of all specimens. 11/04/2024 11:00 AM CDT [facility] Bundle LABORATORY-C ENTRAL LABORATORY Additional Information Interpreted at [facility], Central Laboratory - [address] [facility] [address], [place] [address] 11/04/2024 11:00 AM T [facility] Other (Duodenum Biopsy) 10/31/2024 12:45 PM CDT 11/01/2024 11:54 AM CDT Specimen (specimen) GASTRIC BIOPSY SPECIMEN / Unknown 10/31/2024 12:45 PM CDT 11/01/2024 11:54 AM CDT Specimen (specimen) (Antrum Biopsy) 10/31/2024 12:45 PM CDT 11/01/2024 11:54 AM CDT Specimen (specimen) (Stomach Biopsy) 10/31/2024 12:45 PM CDT 11/01/2024 11:54 AM CDT Specimen (specimen) (Esophageal Biopsy) 10/31/2024 12:45 PM CDT 11/01/2024 11:54 AM CDT Specimen (specimen) (Distal Esophagus Biopsy) 10/31/2024 12:45 PM CDT 11/01/2024 11:54 AM CDT Specimen (specimen) (Mid Esophagus Biopsy) 10/31/2024 12:45 PM CDT 11/01/2024 11:54 AM CDT Specimen (specimen) (Cecal Polyp) 10/31/2024 12:45 PM CDT 11/01/2024 11:54 AM CDT Specimen (specimen) (Ascending Colon Polyp) 10/31/2024 12:45 PM CDT 11/01/2024 11:54 AM CDT Specimen (specimen) (Hepatic Flexure Polyp) 10/31/2024 12:45 PM CDT 11/01/2024 11:54 AM CDT Specimen (specimen) (Transverse Colon Polyp) 10/31/2024 12:45 PM CDT 11/01/2024 11:54 AM CDT us Khoa Xie MD PATHOLOGY/CYTOLOGY Final R esult [facility] [address] [place] [address], [place] from Last 3 Months Insurance MEDICARE [place] ONLY [employer] [place] [employer] Care Teams Category Analyst Relationship Specialty Start Date End Date Gurdeep Galdamez MD PCP - General Family Practice 04/12/16
--- OUTSIDE RECORDS SUMMARY | 2024-11-04 15:39 | XMS_ITS | Clinical Summary ---
Author Organization [facility] Address [address] [place] [address] Care Team Providers Care Portable Router Operator Name Role Phone Candy Knight MD Primary Care Pr ovider Jose Ahuja MD Unavailable [phone] Allergies Active Allergy Reactions Criticality Noted Date [...] on file Legal Sex Female 9:15 AM POLICE OR PATROL PARK OFFICER Gender Identity Not on file Sexual Orientation Not on file Last Filed Vital Signs Vital Sign Reading Time Taken Comments Blood Pressure 111/70 05/16/2023 10:54 AM POLICE OR PATROL PARK OFFICER Pulse 67 05/16/2023 10:54 AM POLICE OR PATROL PARK OFFICER Temperature - - Respiratory Rate - - Oxygen Saturation 100% 05/16/2023 10:54 AM POLICE OR PATROL PARK OFFICER Inhaled Oxygen Concentration - - Weight 52.3 kg (115 lb 3.2 oz) 05/16/2023 10:54 AM POLICE OR PATROL PARK OFFICER Height 166.4 cm (5' 5.5) 05/16/2023 10:54 AM CS T Body Mass Index 18.88 05/16/2023 10:54 AM POLICE OR PATROL PARK OFFICER Plan of Treatment Health Maintenance Due Date [...] complete this topic Insurance [place] Care Teams Portable Router Operator Relationship Specialty Start Date End Date Candy Knight MD PCP - General Family Medicine 05/02/23 Jose Ahuja MD [address] [place] [address] Assigned Heart and Vascular Provider 04/15/23
--- NOTE | 2024-11-04 16:10 | CRLHL7_ITS ---
For Patients: As a result of the Cures Act, medical imaging exams and procedure reports are released immediately into your electronic medical record. You may view this report before your referring provider. If you have questions, please contact your health care provider. INDICATION: Fall, left hip and buttock pain COMPARISON: None. TECHNIQUE: AP pelvis, AP left hip, cross-table lateral left hip. FINDINGS: No fracture. Normal hip joint alignment. Mild hip and sacroiliac osteoarthritis. No destructive focal bone lesions. Atherosclerosis. IMPRESSION: No acute traumatic finding in the pelvis or left hip. Dictated by Kiera Pereyra MD @ 11/04/2024 5:18:05 PM (Electronically Signed)
--- NOTE | 2024-11-04 16:13 | ED.GENADULT ---
HPI - General Adult General Chief complaint: Neuro Symptoms/Altered Deficit Stated complaint: possible syncope Time Seen by Provider: 11/04/24 15:58 History of Present Illness HPI narrative: This 83-year-old female comes in by ambulance. She was noted to be down outside and a neighbor called the ambulance. She comes in now with her daughter also. The patient does not remember what happened. She does not report any pain. She arrives here with normal vital signs. She does have a large swelling on the left side of her head bruising. She does not report a headache. She does report some pain in her left hip and upper leg. She has not been up to ambulate since this event occurred. Related Data Home Medications ?Medication ?Instructions ?Recorded ?Confirmed vitamin B complex-folic acid 0.4 1 tab PO DAILY 10/22/23 11/04/24 mg tablet (B Complex 1 (with folic acid)) lactobacillus combination no.9 4 4,000 mmu cells PO QDAY 10/31/23 11/04/24 billion cell capsule (Adult 50 Plus Probiotic) Previous Rx's ?Medication ?Instructions ?Recorded atenolol 25 mg tablet 25 mg PO DAILY #90 tabs 12/07/23 gemfibrozil 600 mg tablet 600 mg PO DAILY #90 tabs 12/07/23 omeprazole 40 mg capsule,delayed 40 mg PO DAILY #90 caps 12/07/23 release spironolactone 25 mg tablet 25 mg PO DAILY #90 tabs 05/22/24 levothyroxine 50 mcg tablet 50 mcg PO QDAY #90 tabs 10/10/24 peg 3350-electrolytes 236 4,000 ml PO DIRECTED PRN 10/11/24 gram-22.74 gram-6.74 gram-5.86 screening #1 mL gram solution (Golytely) Allergies Allergy/AdvReac Type Severity Reaction Status Date / Time fenofibrate Allergy Intermediate elevated Verified 11/04/24 15:57 transaminases potassium chloride Allergy Intermediate pruritis Verified 11/04/24 15:57 cefdinir Allergy Unknown decreased Verified 11/04/24 15:57 appetite, weight loss, diarrhea losartan AdvReac Intermediate pruritis Verified 11/04/24 15:57 Sulfamethoxazole / AdvReac Unknown nausea and Uncoded 10/10/24 10:50 trimethoprim vomiting Review of Systems Status of ROS: Reports: 10 or more systems reviewed and unremarkable except as noted in History and below Narrative: Constitutional: No fevers, no weight gain or loss. Eyes: No discharge. No vision changes. HENT: No congestion, no sore throat, no ear pain. Cardiovascular: No chest pain, no palpitations. Respiratory: No shortness of breath, no wheezes, no cough. Gastrointestinal: No abdominal pain, no vomiting, no diarrhea. Genitourinary: No dysuria, no hematuria. Musculoskeletal: Left hip in upper leg pain. Skin: No rashes, no pruritis. Neurological: No dizziness, weakness, sensory change, speech change. Endo/Heme/Allergies: No bruising or bleeding. No polydipsia. Pysch: no suicidality, no anxiety, no insomnia. All other systems reviewed and are negative. [facility] Medical History Hypothyroidism ?E03.9 - Hypothyroidism, unspecified (ICD-10) Urinary tract infection ?N39.0 - Urinary tract infection, site not specified (ICD-10) Bacteremia ?R78.81 - Bacteremia (ICD-10) Mass of vulva ?N90.89 - Other specified noninflammatory disorders of vulva and perineum (ICD-10) Compression fracture of T6 vertebra ?S22.050A - Wedge compression fracture of T5-T6 vertebra, initial encounter for closed fracture (ICD-10) Calculus of kidney ?N20.0 - Calculus of kidney (ICD-10) Basal cell carcinoma (BCC) ?C44.91 - Basal cell carcinoma of skin, unspecified (ICD-10) Atherosclerosis of abdominal aorta ?I70.0 - Atherosclerosis of aorta (ICD-10) Surgical History History of wisdom tooth extraction (03/18/13) ?K08.409 - Partial loss of teeth, unspecified cause, unspecified class (ICD-10) History of hysterectomy (03/18/13) ?Z90.710 - Acquired absence of both cervix and uterus (ICD-10) History of appendectomy (03/18/13) ?Z90.49 - Acquired absence of other specified parts of digestive tract (ICD-10) Family History Mother Breast cancer, Onset Age: 80 Daughter Breast cancer Father Myocardial infarction, Onset Age: 60 Other Empyema Social History Narrative: does not use illicit drugs former smoker occasional alcohol consumption What is your current living situation?: I presently have a place to live Problems where you live: no known problems Problems where you live details: na In the past 12 months, utilities in danger of being shut off: no In past 12 months, lack of transportation kept you from medical appts, meetings, work, or getting things needed for daily living: no In the past 12 mos, have been you worried that your food would run out before you had money to buy more?: never true In the past 12 mos, the food you bought just didn't last and you didn't have money to buy more?: never true Highest level of school completed/degree received: some college, no degree Smoking Status: Former smoker Do you use any of these nicotine containing products: None How often do you have a drink containing alcohol: 4 or more times a week How many standard drinks containing alcohol do you have on a typical day: 3 or 4 AUDIT-C Alcohol total score: 5 Non-prescribed substance use: denies use Caffeine: Yes (1 cup) How often does anyone, including family, friends and others, physically hurt you: never How often does anyone, including family, friends and others, insult or talk down to you: never How often does anyone, including family, friends and others, threaten you with harm: never How often does anyone, including family, friends and others, scream or curse at you: never service: No Exam Narrative: Exam Narrative: Constitutional: Well-developed, well-nourished, no acute distress. HEENT: Large hematoma on the left side of the head. No bleeding or skin injury. Neck: Normal range of motion. Nontender. Supple. Heart: Regular. No murmurs. Normal rate. Intact distal pulses. Lungs: Clear to auscultation. No chest discomfort. No wheezes, rhonchi, or rales. Abdomen: Normal bowel sounds. Nontender. No rebound tenderness. Genitalia: Deferred. Back: No midline tenderness. Normal range of motion. Extremities: Pain in the left hip region radiating down her leg a bit. Pain with log-rolling her left leg. She is unable to lift her left leg off the bed. Skin: Intact. No rash. Warm. No erythema or pallor. Neurologic: No altered sensation. No weakness. Alert and oriented. Psychiatric: No suicidality. No anxiety or depression. No insomnia. Nursing notes and vitals signs are reviewed. Const: Vital Signs, click to edit/add: Vital Signs - 24 hr 11/04/24 15:47 11/04/24 16:00 11/04/24 16:50 Temperature 98.5 F Pulse Rate [Pulse Oximeter] 90 87 81 Respiratory Rate 16 11 L 13 Blood Pressure [Ri ght Upper Arm] 145/84 H 124/80 138/77 Pulse Oximetry 98 97 98 Oxygen Delivery Me thod Room Air Room Air Room Air 11/04/24 17:00 11/04/24 17:30 11/04/24 18:00 Temperature Pulse Rate [Pulse Oximeter] 81 84 84 Respiratory Rate 21 20 24 Blood Pressure [Ri ght Upper Arm] 138/77 128/75 119/70 Pulse Oximetry 94 97 97 Oxygen Delivery Me thod Room Air Room Air Room Air 11/04/24 18:30 Temperature Pulse Rate [Pulse Oximeter] 91 Respiratory Rate 17 Blood Pressure [Ri ght Upper Arm] 121/87 Pulse Oximetry 99 Oxygen Delivery Me thod Room Air Course Vital Signs Vital signs: Initial Vital Signs Temperature 98.5 F 11/04/24 15:47 Temperature Source Temporal Artery Scan 11/04/24 15:47 Pulse Rate 90 11/04/24 15:47 Respiratory Rate 16 11/04/24 15:47 Blood Pressure 145/84 H 11/04/24 15:47 Blood Pressure Mean 104 11/04/24 15:47 Blood Pressure Position Sitting 11/04/24 15:47 Pulse Oximetry 98 11/04/24 15:47 Oxygen Delivery Method Room Air 11/04/24 15:47 Vital Signs Temperature 98.5 F 11/04/24 15:47 Pulse Rate 90 11/04/24 15:47 Respiratory Rate 16 11/04/24 15:47 Blood Pressure 145/84 H 11/04/24 15:47 Pulse Oximetry 98 11/04/24 15:47 Oxygen Delivery Method Room Air 11/04/24 15:47 Temperature 98.5 F 11/04/24 15:47 Pulse Rate 91 11/04/24 18:30 Respiratory Rate 17 11/04/24 18:30 Blood Pressure 121/87 11/04/24 18:30 Pulse Oximetry 99 11/04/24 18:30 Oxygen Delivery Method Room Air 11/04/24 18:30 Medical Decision Making MDM Narrative Medical decision making narrative: This patient comes in for evaluation of a loss of consciousness and fall that occurred prior to arrival. It seems that she does not remember about 3 hours of time in this event. She arrives here with normal vital signs and has evidence of a hematoma on the left side of her head. She also reports pain in her left hip region and is unable to lift her leg off of the bed. Her neurologic exam is completely normal. CT scan of her head is obtained and by my review shows no sign of fracture or internal bleeding. The patient is not on any anticoagulants. Labs are acquired and these also returned with reassuring findings. It is noted that she does have blood alcohol level at 0.05. She may have been technically inebriated as she has had some time to metabolize the alcohol over these past several hours. X-ray of her left hip shows no evidence of fracture or dislocation. I did re-examine her and she is yet unable to lift her leg off of the bed. She can lift her knee up a little bit but unable to get her foot off of the bed. When doing so she has pain in her left groin and hip region. I did order a CT scan for further evaluation. I also spoke with hospitalist on-call, Dr. Dee, who agrees to her admission. The patient also received a Ahuja catheter. Lab Data Labs: Lab Results 11/04/24 Range/Units 17:11 WBC 10.78 (4.50-11.00) K/uL RBC 3.22 L (4.00-5.20) m/uL Hgb 11.5 L (12.0-16.0) gm/dL Hct 32.9 L (33.0-51.0) % MCV 102 H (80-100) fL MCH 36 H (26-34) pg MCHC 35 (32-36) gm/dL RDW Coeff of Michelle 11.8 (11.5-15.5) % Plt Count 161 (140-440) K/uL Neut % (Auto) 83.2 H (42.0-72.0) % Lymph % (Auto) 10.2 L (20-44) % Morgan % (Auto) 4.9 (0.0-11.0) % Eos % (Auto) 0.6 (0.0-7.0) % Baso % (Auto) 0.2 (0.0-3.0) % Neut # (Auto) 9.00 H (1.7-7.0) K/uL Lymph # (Auto) 1.10 (0.90-2.90) K/uL Morgan # (Auto) 0.50 (0.00-0.90) K/UL Eos # (Auto) 0.06 (0.00-0.50) K/uL Baso # (Auto) 0.02 (0.00-0.30) K/uL Abs Immat Gran (auto) 0.10 (0.00-0.30) K/uL Imm/Tot Granulo (auto) 0.9 % Sodium 139 (135-149) mmol/L Potassium 3.4 L (3.6-5.1) mmol/L Chloride 109 (96-114) mmol/L Carbon Dioxide 17 L (20-32) mmol/L Anion Gap 13 (7-15) mEq/L BUN 9 (7-30) mg/dL Creatinine 0.7 (0.5-1.5) mg/dL Estimated Creat Clear 33.81 Estimated GFR 87 ml/min Glucose 89 (60-115) mg/dL Calcium 8.9 (8.4-10.6) mg/dL Ethyl Alcohol 0.05 H (0.01-0.03) % Imaging Data XR L Hip: Radiologist's impression: No acute traumatic finding in the pelvis or left hip. ECG Data Attestation: I personally reviewed and interpreted this ECG as follows: Interpretation: Normal sinus rhythm. Rate is 86 beats per minute. There are no ST or T-wave abnormalities. Discharge Plan Discharge Clinical Impression: Hip injury, Concussion Patient Disposition: Admitted As Observation Condition: Unchanged
[2024-11-04 17:21] LABS: Basophils Absolute Auto 0.02 K/uL (0.00-0.30); Basophils Percent Auto 0.2 % (0.0-3.0); Eosinophils Absolute Auto 0.06 K/uL (0.00-0.50); Eosinophils Percent Auto 0.6 % (0.0-7.0); Hematocrit 32.9 % (33.0-51.0); Hemoglobin* 11.5 gm/dL (12.0-16.0); Immature Granulocytes Pct Auto 0.9 %; Lymphocytes Percent Auto 10.2 % (20-44); Mean Corpuscular HGB Conc 35 gm/dL (32-36); Mean Corpuscular Hemoglobin 36 pg (26-34); Mean Corpuscular Volume 102 fL (80-100); Monocytes Percent Auto 4.9 % (0.0-11.0); Neutrophils Percent Auto 83.2 % (42.0-72.0); Platelet Count* 161 K/uL (140-440); RDW Coefficient of Variation % 11.8 % (11.5-15.5); Red Blood Count 3.22 m/uL (4.00-5.20); White Blood Count* 10.78 K/uL (4.50-11.00)
[2024-11-04 18:10] LABS: Chloride* 109 mmol/L (96-114); Sodium* 139 mmol/L (135-149)
[2024-11-04 18:11] LABS: Potassium* 3.4 mmol/L (3.6-5.1)
[2024-11-04 18:13] LABS: Anion Gap 13 mEq/L (7-15); Blood Urea Nitrogen* 9 mg/dL (7-30); Carbon Dioxide* 17 mmol/L (20-32); Creatinine* 0.7 mg/dL (0.5-1.5); Est. Creatinine Clearance* 33.81; Estimated Glomerular Filt Rate 87 ml/min
[2024-11-04 18:14] LABS: Calcium* 8.9 mg/dL (8.4-10.6); Ethanol* 0.05 % (0.01-0.03); Glucose* 89 mg/dL (60-115)
[2024-11-04 18:25] LABS: Slide Review Reflex No
--- NOTE | 2024-11-04 18:33 | CRLHL7_ITS ---
For Patients: As a result of the Cures Act, medical imaging exams and procedure reports are released immediately into your electronic medical record. You may view this report before your referring provider. If you have questions, please contact your health care provider. INDICATION: Syncope, fall and hip pain TECHNIQUE: CT pelvis, left hip without i.v. contrast. Coronal and sagittal reformats were obtained. COMPARISON: None FINDINGS: Bone: There is a comminuted nondisplaced fracture involving the parasymphyseal region of the left superior and inferior pubic rami. There is a nondisplaced fracture in the anterior, of the left acetabulum. Joint: The visualized hip and SI joints are unremarkable. No significant joint effusion is seen. Soft tissue: A small soft tissue hematoma is present along the left anterior space of Retzius. No radiopaque foreign bodies are seen. The bladder is decompressed by a Ahuja catheter and is difficult to evaluate. Moderate vascular calcifications are present. IMPRESSION: 1. There is a comminuted nondisplaced fracture involving the parasymphyseal region of the left superior and inferior pubic rami. There is a nondisplaced fracture in the anterior, of the left acetabulum. Dictated by Kleber Pierce MD @ 11/04/2024 7:25:44 PM Please note that all CT scans at this facility use dose modulation, iterative reconstruction, and/or weight-based dosing when appropriate to reduce radiation dose to as low as reasonably achievable. Dictated by: Kleber Pierce MD @ 11/04/2024 19:31:01 (Electronically Signed)
[2024-11-04 20:35] LABS: Magnesium* 1.1 mg/dL (1.5-2.6)
[2024-11-04 20:56] LABS: Troponin I* < 0.01 ng/mL (0.01-0.04)
[2024-11-04] MEDS: THIAMINE 100 MG TABLET PO (21:40)
[2024-11-04] MEDS: SODIUM CHLORIDE 0.9 % (FLUSH) 10 ML SYRINGE 5 ML IVF (21:40)
[2024-11-04] MEDS: PHENobarbitaL 32.4 MG TABLET 64.8 MG PO (21:40)
[2024-11-04] MEDS: ENOXAPARIN 40 MG/0.4 ML INJ SUBCUT (21:44)
--- NOTE | 2024-11-04 22:38 | PM.IMHP1 ---
Assessment and Plan Assessment and plan (1) Loss of consciousness: Problem comment: Patient had a period of time up to 70 or 80 minutes today where she has no recall of events. Presumed loss of consciousness. Unknown if this was syncope or a trip and fall with a concussion or seizure. Will evaluate and monitor in the hospital. Status: Acute (2) Closed head injury: Problem comment: With her fall and presumed loss of consciousness she had a closed head injury. Possibly a concussion Status: Acute (3) Accidental fall: Problem comment: Fall with loss of consciousness preceding or following head injury. Status: Acute (4) Pelvic fracture: Problem comment: Nondisplaced pubic rami fracture. Consulted Orthopedic surgery. They recommend medical management. Weight-bearing as tolerated. Pain medication Status: Acute (5) Alcohol use disorder: Problem comment: daily wine drinking >2 glasses add MV/thiamine Uncertain what role this played in her fall and loss of consciousness. No history of withdrawal. [facility] protocol. Status: Acute Plan Patient is admitted to the hospital for evaluation and management of pelvic fracture and episode of loss of consciousness and head injury. Monitor neurologic status. Therapy to assess mobility. Manage pain. Evaluate plan of disposition. Discussed with patient and daughter that she might need some time for rehab prior to returning home to independent living. Total Time Spent Total Time Spent: Total time spent today is 80 minutes in review of outside records, coordination of care, discussion with patient and daughter ongoing management of above problems Hospitalist- H&P: HPI History of Present Illness Date Seen: 11/04/24 Chief complaint: possible syncope Narrative: Annie Gallardo is a 83 year old female admitted through the emergency department with an episode of presumed loss of consciousness and disabling left hip pain. Patient lives independently in [place]. She tells me that she went out of her house about 130 this afternoon to check on her plants to see if they needed water. The next thing she remembers is she is waking up laying on some landscaping rocks in the yd. She has no recollection of what happened between walking outside and waking up on the ground. She is unable to get up because her left hip hurts. She calls for help and her neighbor hears her and comes to her assistance. Ambulance is called and she is brought to the emergency room. She tells me she was in the ambulance about 3:00 p.m.. She reports prior to going outside she was feeling fine. She has had no recent symptoms of illness. She did hit her head as there is bruising and her left hip hurts to the point that she is unable to move it or bear weight. She reports no previous history of syncope or seizures. She does report that she sometimes has dizzy spells but she describes he is primarily is episodes where she has temporary blurry vision. She has a somewhat remote history of a concussion as well. She does have a history of alcohol use disorder. This is been a lifelong problem for her. She reports participating in an online chat group for people who are trying to reduce there alcohol intake without stopping. She tells me she does not want to stop drinking because she enjoys it and it is important to her. She tells me she had 1 and half glasses of wine prior to going outside to check on her plants at 1:30 p.m.. Her alcohol level at 5:11 p.m. was 0.05. Review of Systems Narrative: She reports no recent illness. Injuries from the fall today noted above. Medical Decision Making Medical Decision Making Code Status: DNR Has patient completed a Health Care Directive: Yes During This Stay, Who Would You Like To Make Decisions For You In The Event You Are Unable To Make Them For Yourself?: Daughter Mariama [facility] Medical History (Updated 11/04/24 @ 23:05 by Connor Dee MD) Alcohol use disorder ?F19.90 - Other psychoactive substance use, unspecified, uncomplicated (ICD-10) Hypothyroidism ?E03.9 - Hypothyroidism, unspecified (ICD-10) Urinary tract infection ?N39.0 - Urinary tract infection, site not specified (ICD-10) Bacteremia ?R78.81 - Bacteremia (ICD-10) Mass of vulva ?N90.89 - Other specified noninflammatory disorders of vulva and perineum (ICD-10) Compression fracture of T6 vertebra ?S22.050A - Wedge compression fracture of T5-T6 vertebra, initial encounter for closed fracture (ICD-10) Calculus of kidney ?N20.0 - Calculus of kidney (ICD-10) Basal cell carcinoma (BCC) ?C44.91 - Basal cell carcinoma of skin, unspecified (ICD-10) Atherosclerosis of abdominal aorta ?I70.0 - Atherosclerosis of aorta (ICD-10) Surgical History History of wisdom tooth extraction (03/18/13) ?K08.409 - Partial loss of teeth, unspecified cause, unspecified class (ICD-10) History of hysterectomy (03/18/13) ?Z90.710 - Acquired absence of both cervix and uterus (ICD-10) History of appendectomy (03/18/13) ?Z90.49 - Acquired absence of other specified parts of digestive tract (ICD-10) Family History Mother Breast cancer, Onset Age: 80 Daughter Breast cancer Father Myocardial infarction, Onset Age: 60 Other Empyema Social History (Updated 11/04/24 @ 22:54 by Connor Dee MD) Narrative: former smoker, quit decades ago Reports 2 glasses of wine per day, acknowledges ongoing issues with alcohol use. Her daughter, Mariama, lives a couple miles away in his primary support and healthcare power of securities attorney. Code status is DNR. What is your current living situation?: I presently have a place to live Problems where you live: no known problems Problems where you live details: N/A In the past 12 months, utilities in danger of being shut off: no In past 12 months, lack of transportation kept you from medical appts, meetings, work, or getting things needed for daily living: declined to answer In the past 12 mos, have been you worried that your food would run out before you had money to buy more?: never true In the past 12 mos, the food you bought just didn't last and you didn't have money to buy more?: never true Highest level of school completed/degree received: some college, no degree Smoking Status: Never smoker Do you use any of these nicotine containing products: None How often do you have a drink containing alcohol: 2-3 times a week Alcohol type: wine Alcohol type details: States she has a couple of glasses a wine a few times a week How many standard drinks containing alcohol do you have on a typical day: 1 or 2 How often do you have six or more drinks on one occasion: Never AUDIT-C Alcohol total score: 3 Non-prescribed substance use: denies use Caffeine: Yes (a couple cups of coffee in AM) How often does anyone, including family, friends and others, physically hurt you: never How often does anyone, including family, friends and others, insult or talk down to you: never How often does anyone, including family, friends and others, threaten you with harm: never How often does anyone, including family, friends and others, scream or curse at you: never service: No Meds Home Medications and Allergies Home Medications ?Medication ?Instructions ?Recorded ?Confirmed ?Type vitamin B complex-folic acid 0.4 1 tab PO DAILY 10/22/23 11/04/24 History mg tablet (B Complex 1 (with folic acid)) lactobacillus combination no.9 4 4,000 mmu cells PO QDAY 10/31/23 11/04/24 History billion cell capsule (Adult 50 Plus Probiotic) atenolol 25 mg tablet 25 mg PO DAILY #90 tabs 12/07/23 11/04/24 Rx gemfibrozil 600 mg tablet 600 mg PO DAILY #90 tabs 12/07/23 11/04/24 Rx omeprazole 40 mg capsule,delayed 40 mg PO DAILY #90 caps 12/07/23 11/04/24 Rx release spironolactone 25 mg tablet 25 mg PO DAILY #90 tabs 05/22/24 11/04/24 Rx levothyroxine 50 mcg tablet 50 mcg PO QDAY #90 tabs 10/10/24 11/04/24 Rx peg 3350-electrolytes 236 4,000 ml PO DIRECTED PRN 10/11/24 Rx gram-22.74 gram-6.74 gram-5.86 screening #1 mL gram solution (Golytely) Allergies Allergy/AdvReac Type Severity Reaction Status Date / Time fenofibrate Allergy Intermediate elevated Verified 11/04/24 15:57 transaminases potassium chloride Allergy Intermediate pruritis Verified 11/04/24 15:57 cefdinir Allergy Unknown decreased Verified 11/04/24 15:57 appetite, weight loss, diarrhea losartan AdvReac Intermediate pruritis Verified 11/04/24 15:57 Sulfamethoxazole / AdvReac Unknown nausea and Uncoded 10/10/24 10:50 trimethoprim vomiting Exam Narrative: Exam Narrative: She is alert somewhat anxious but otherwise in no distress. She gives her own history with fairly good detail. She is forgetful about her medications. Left scalp swelling. Eyes normal. Extraocular movements are full. Oropharynx is normal. Neck is supple without mass or adenopathy. Respirations are clear to auscultation. Cardiovascular: S1, S2, regular rate and rhythm. Abdomen: Bowel sounds active. Abdomen is soft without tenderness or mass. She moves all 4 extremities well she has symmetric strength in all 4 extremities she has intact pulses in all 4 extremities. [id number] is accurate and efficient. Const: Vital Signs, click to edit/add: Vital Signs - 24 hr 11/04/24 15:47 11/04/24 16:00 11/04/24 16:50 Temperature 98.5 F Pulse Rate [Pulse Oximeter] 90 87 81 Respiratory Rate 16 11 L 13 Blood Pressure [Ri ght Upper Arm] 145/84 H 124/80 138/77 Pulse Oximetry 98 97 98 Oxygen Delivery Me thod Room Air Room Air Room Air 11/04/24 17:00 11/04/24 17:30 11/04/24 18:00 Temperature Pulse Rate [Pulse Oximeter] 81 84 84 Respiratory Rate 21 20 24 Blood Pressure [Ri ght Upper Arm] 138/77 128/75 119/70 Pulse Oximetry 94 97 97 Oxygen Delivery Me thod Room Air Room Air Room Air 11/04/24 18:30 Temperature Pulse Rate [Pulse Oximeter] 91 Respiratory Rate 17 Blood Pressure [Ri ght Upper Arm] 121/87 Pulse Oximetry 99 Oxygen Delivery Me thod Room Air Documenting provider has reviewed patient's vital signs: yes Hospitalist - H&P: Result Labs Labs: Short CBC 11/04/24 Range/Units 17:11 WBC 10.78 (4.50-11.00) K/uL Hgb 11.5 L (12.0-16.0) gm/dL Hct 32.9 L (33.0-51.0) % Plt Count 161 (140-440) K/uL BMP 11/04/24 17:11 Sodium 139 Potassium 3.4 L Chloride 109 Carbon Dioxide 17 L BUN 9 Creatinine 0.7 Glucose 89 Calcium 8.9 Cardiac Enzymes 11/04/24 Range/Units 17:11 Troponin I < 0.01 (0.01-0.04) ng/mL ECG Attestation: I personally reviewed and interpreted this ECG as follows: (Normal electrocardiogram) ECG interpretation date: 11/04/[address] hip: Radiologist's impression: INDICATION: Syncope, fall and hip pain TECHNIQUE: CT pelvis, left hip without i.v. contrast. Coronal and sagittal reformats were obtained. COMPARISON: None FINDINGS: Bone: There is a comminuted nondisplaced fracture involving the parasymphyseal region of the left superior and inferior pubic rami. There is a nondisplaced fracture in the anterior, of the left acetabulum. Joint: The visualized hip and SI joints are unremarkable. No significant joint effusion is seen. Soft tissue: A small soft tissue hematoma is present along the left anterior space of Retzius. No radiopaque foreign bodies are seen. The bladder is decompressed by a Ahuja catheter and is difficult to evaluate. Moderate vascular calcifications are present. IMPRESSION: 1. There is a comminuted nondisplaced fracture involving the parasymphyseal region of the left superior and inferior pubic rami. There is a nondisplaced fracture in the anterior, of the left acetabulum. CT scan - head: Radiologist's impression: TECHNIQUE: Head CT without contrast. COMPARISON: None. FINDINGS: No gross intra or extra-axial fluid collection, mass or edema. Moderate periventricular white matter hypoattenuation, likely chronic small vessel ischemic disease. No hydrocephalus is seen. Left convexity scalp hematoma. No acute fracture seen. Mucosal thickening is seen within maxillary sinuses. IMPRESSION: Left scalp hematoma without gross acute intracranial abnormality.
[2024-11-04 23:02] LABS: Albumin* 3.8 g/dL (3.3-5.0)
[2024-11-04 23:05] LABS: Alanine Aminotransferase* 28 U/L (4-35); Alkaline Phosphatase* 74 U/L (40-150); Aspartate Amino Transferase* 60 U/L (12-35); Bilirubin Direct* 0.2 mg/dL (0.0-0.5); Bilirubin Total* 0.4 mg/dL (0.1-1.5); Total Protein* 6.5 g/dL (6.0-8.3)
[2024-11-04] MEDS: MAGNESIUM IV 2 GM/50 ML PIGGYBACK IVPB (23:10)
[2024-11-04] MEDS: POTASSIUM BICARB 25 MEQ EFFERVESCENT TAB PO (23:11)
[2024-11-04] MEDS: ONDANSETRON 2 MG/ML inj 4 MG IVP (23:57)
[2024-11-05 03:13] VITALS: BP 98/60; PULSE 82; RESP 16; TEMP 36.9; O2SAT 97
[2024-11-05 03:14] VITALS: BP 98/60; PULSE 82; RESP 16; TEMP 36.9; O2SAT 97
[2024-11-05] MEDS: LEVOTHYROXINE 50 MCG TABLET PO (05:45)
--- NOTE | 2024-11-05 06:34 | PC.NURSE ---
End of shift pt arrived to the floor at 1935. A&O pleasant and cooperative. VSS. Reports pain in left hip and pelvis only when changing positions. PRN pain medications offered throughout night. Pt declined. Ice to pelvis. Turn and repo q2h. X1 inc. Bm. Pt reports having incontinence the last 2 years. CIWAs unremarkable. Reports one episode of nausea. Relieved w/ prn zofran. Bed alarm in place. Using call light appropriately.
[2024-11-05 06:40] LABS: Basophils Absolute Auto 0.04 K/uL (0.00-0.30); Basophils Percent Auto 0.7 % (0.0-3.0); Eosinophils Absolute Auto 0.02 K/uL (0.00-0.50); Eosinophils Percent Auto 0.3 % (0.0-7.0); Hematocrit 32.2 % (33.0-51.0); Hemoglobin* 11.3 gm/dL (12.0-16.0); Immature Granulocytes Abs Auto 0.03 K/uL (0.00-0.30); Immature Granulocytes Pct Auto 0.5 %; Lymphocytes Percent Auto 18.8 % (20-44); Mean Corpuscular HGB Conc 35 gm/dL (32-36); Mean Corpuscular Hemoglobin 36 pg (26-34); Mean Corpuscular Volume 103 fL (80-100); Monocytes Percent Auto 4.9 % (0.0-11.0); Neutrophils Percent Auto 74.8 % (42.0-72.0); Platelet Count* 167 K/uL (140-440); RDW Coefficient of Variation % 11.7 % (11.5-15.5); Red Blood Count 3.13 m/uL (4.00-5.20); Slide Review Reflex No; White Blood Count* 5.96 K/uL (4.50-11.00)
[2024-11-05 06:47] LABS: Chloride* 108 mmol/L (96-114); Sodium* 140 mmol/L (135-149)
[2024-11-05 06:50] LABS: Anion Gap 10 mEq/L (7-15); Blood Urea Nitrogen* 11 mg/dL (7-30); Carbon Dioxide* 22 mmol/L (20-32); Creatinine* 0.7 mg/dL (0.5-1.5); Estimated Glomerular Filt Rate 87 ml/min
[2024-11-05 06:51] LABS: Calcium* 8.8 mg/dL (8.4-10.6); Glucose* 87 mg/dL (60-115); Magnesium* 1.8 mg/dL (1.5-2.6)
[2024-11-05 07:30] VITALS: BP 139/86; PULSE 80; RESP 16; TEMP 36.6; O2SAT 97
[2024-11-05] MEDS: FOLIC ACID 1 MG TABLET PO (08:56)
[2024-11-05] MEDS: SPIRONOLACTONE 25 MG TABLET PO (08:56)
[2024-11-05] MEDS: MULTIVITAMIN/MINERALS 1 TABLET 1 TAB PO (08:56)
[2024-11-05] MEDS: OMEPRAZOLE 20 MG CAPSULE DR 40 MG PO (08:56)
[2024-11-05] MEDS: ACETAMINOPHEN 325 MG TABLET 650 MG PO (08:56)
[2024-11-05] MEDS: atenoloL 25 MG TABLET PO (08:56)
[2024-11-05] MEDS: MAGNESIUM OXIDE 400 MG TABLET PO (08:56)
[2024-11-05] MEDS: SODIUM CHLORIDE 0.9 % (FLUSH) 10 ML SYRINGE 5 ML IVF (08:57)
--- NOTE | 2024-11-05 09:48 | NUTR.NU ---
RDN with nutrition screen related to positive skin risk score. Patient admitted for syncope with fall and pelvic fracture. Current weight 121lb 9oz; height 5ft 3in; BMI 21.5 kg/m2. Per weight records, pt's weight has been stable recently. Current diet is Regular. No meal intakes recorded yet since admit. No nutrition interventions at this time. Wait to assess oral intakes. RDN to continue to monitor and follow-up as needed.
[2024-11-05] MEDS: gemfibroziL 600 MG TABLET PO (10:15)
[2024-11-05] MEDS: LIDOCAINE 5% PATCH 1 PATCH TRANSDERMA (10:17)
--- NOTE | 2024-11-05 12:07 | PM.DS1 ---
DS: Providers Provider Date Seen: 11/05/24 Date of admission: 11/04/24 19:27 Primary care physician: Rosio Houston CNP Admitting Clinician: Connor Dee MD Consults: 11/04/24 21:15 Consult to Occupational Therapy [CONS] Routine Comment: Reason(s) for OT Consult:: Evaluate and Treat Any Restrictions?:: No Restrictions Consult to Physical Therapy [CONS] Routine Comment: Reason(s) for PT Consult:: Evaluate and Treat Any Restrictions?:: No Restrictions Consult to Past Due Accounts Clerk [CONS] Routine Comment: Reason for Consult:: Discharge Planning Needs Attending Physician on discharge: JUAN Dominguez, [facility] Date of Discharge: 11/05/24 DS: Diagnosis Discharge Diagnosis (1) Loss of consciousness: Status: Acute Problem details: Patient had a period of time up to 70 or 80 minutes today where she has no recall of events. Presumed loss of consciousness. Unknown if this was syncope or a trip and fall with a concussion or seizure. Will evaluate and monitor in the hospital. CT head negative for acute intracranial findings. Observation overnight without significant changes or findings. Remains at baseline. No altered mental status. (2) Closed head injury: Status: Acute Problem details: With her fall and presumed loss of consciousness she had a closed head injury. Possibly a concussion. No new or worsening symptoms overnight. Observation unremarkable. Close outpatient follow-up with PCP (3) Accidental fall: Status: Acute Problem details: Fall with loss of consciousness preceding or following head injury. Blood alcohol 0.05 in the ED. (4) Pelvic fracture: Status: Acute Problem details: Nondisplaced pubic rami fracture. Consulted Orthopedic surgery. They recommend medical management. Weight-bearing as tolerated. Pain medication. PT and OT consulted. Safe to return to home, weight-bearing as tolerated, use of walker at all times. Recommending home PT with evaluation for OT if needed. Patient has declined any pain medication other than Tylenol. Continue with Tylenol, ice/heat, lidocaine patch. (5) Alcohol use disorder: Status: Acute Problem details: daily wine drinking >2 glasses add MV/thiamine Uncertain what role this played in her fall and loss of consciousness. No history of withdrawal. [facility] protocol Daughter and patient have minimized daily alcohol use. Increased fall risk. DS: Summary Hospital Course Hospital Course: Course of care and details as noted above. Admitted for fall in setting of acute on chronic alcohol use, alcohol level 0.05 in ED, resulting in pelvic fracture, closed head injury. Observation overnight without new or worsening symptoms. PT and OT consulted, patient able to complete ADLs independently, ambulating with walker and able to do stairs. Patient has declined pain medication other than Tylenol. Lidocaine patch was applied. Discharge to home with home PT and evaluation for need for home OT. Family and friends to assist. Status at Discharge Overall status at discharge: patient is progressing back to baseline Time Spent with Patient Time attestation: Total time spent providing and/or coordinating discharge services: Time spent: Greater than 30 minutes Exam Narrative: Exam Narrative: PHYSICAL EXAM General: Pleasant, conversant, NAD Cardiovascular: RRR Pulmonary: No dyspnea Neurological: Alert, answering questions appropriately Skin: Warm, dry. Const: Vital Signs, click to edit/add: Vital Signs - 24 hr 11/04/24 15:47 11/04/24 16:00 11/04/24 16:50 Temperature 98.5 F Pulse Rate Pulse Rate [Pulse Oximeter] 90 87 81 Respiratory Rate 16 11 L 13 Blood Pressure [Le ft Arm] Blood Pressure [Ri ght Upper Arm] 145/84 H 124/80 138/77 Pulse Oximetry 98 97 98 Oxygen Delivery Me thod Room Air Room Air Room Air 11/04/24 17:00 11/04/24 17:30 11/04/24 18:00 Temperature Pulse Rate Pulse Rate [Pulse Oximeter] 81 84 84 Respiratory Rate 21 20 24 Blood Pressure [Le ft Arm] Blood Pressure [Ri ght Upper Arm] 138/77 128/75 119/70 Pulse Oximetry 94 97 97 Oxygen Delivery Me thod Room Air Room Air Room Air 11/04/24 18:30 11/04/24 22:36 11/04/24 22:45 Temperature 98.2 F Pulse Rate 89 Pulse Rate [Pulse Oximeter] 91 88 Respiratory Rate 17 16 Blood Pressure [Le ft Arm] 142/98 H Blood Pressure [Ri ght Upper Arm] 121/87 Pulse Oximetry 99 97 Oxygen Delivery Me thod Room Air Room Air 11/04/24 22:55 11/04/24 22:56 11/04/24 22:57 Temperature 98.0 F 98.0 F Pulse Rate Pulse Rate [Pulse Oximeter] 89 89 Respiratory Rate 18 18 18 Blood Pressure [Le ft Arm] 104/73 104/73 Blood Pressure [Ri ght Upper Arm] Pulse Oximetry 97 97 97 Oxygen Delivery Me thod Room Air Room Air Room Air 11/05/24 03:13 11/05/24 03:14 11/05/24 07:30 Temperature 98.5 F 98.5 F 97.9 F Pulse Rate Pulse Rate [Pulse Oximeter] 82 82 80 Respiratory Rate 16 16 16 Blood Pressure [Le ft Arm] 98/60 98/60 139/86 Blood Pressure [Ri ght Upper Arm] Pulse Oximetry 97 97 97 Oxygen Delivery Me thod Room Air Room Air Room Air 11/05/24 07:30 Temperature Pulse Rate Pulse Rate [Pulse Oximeter] Respiratory Rate Blood Pressure [Le ft Arm] Blood Pressure [Ri ght Upper Arm] Pulse Oximetry 97 Oxygen Delivery Me thod Room Air DS: Data Data Completed and Pending Labs on day of discharge: Labs from last 24 hours 11/05/24 11/04/24 11/04/24 05:49 22:53 20:04 WBC 5.96 RBC 3.13 L Hgb 11.3 L Hct 32.2 L MCV 103 H MCH 36 H MCHC 35 RDW Coeff of Michelle 11.7 Plt Count 167 Neut % (Auto) 74.8 H Lymph % (Auto) 18.8 L [place] % (Auto) 4.9 Eos % (Auto) 0.3 Baso % (Auto) 0.7 Neut # (Auto) 4.50 Lymph # (Auto) 1.10 [place] # (Auto) 0.30 Eos # (Auto) 0.02 Baso # (Auto) 0.04 Abs Immat Gran (auto) 0.03 Imm/Tot Granulo (auto) 0.5 Sodium 140 Potassium 4.0 Chloride 108 Carbon Dioxide 22 Anion Gap 10 BUN 11 Creatinine 0.7 Estimated Creat Clear 36.50 Estimated GFR 87 Glucose 87 Calcium 8.8 Magnesium 1.8 Total Bilirubin Direct Bilirubin AST ALT Alkaline Phosphatase Troponin I Total Protein Albumin Ethyl Alcohol Lab Acknowledgement Test Added Test Added 11/04/24 17:11 WBC 10.78 RBC 3.22 L Hgb 11.5 L Hct 32.9 L MCV 102 H MCH 36 H MCHC 35 RDW Coeff of Michelle 11.8 Plt Count 161 Neut % (Auto) 83.2 H Lymph % (Auto) 10.2 L [place] % (Auto) 4.9 Eos % (Auto) 0.6 Baso % (Auto) 0.2 Neut # (Auto) 9.00 H Lymph # (Auto) 1.10 [place] # (Auto) 0.50 Eos # (Auto) 0.06 Baso # (Auto) 0.02 Abs Immat Gran (auto) 0.10 Imm/Tot Granulo (auto) 0.9 Sodium 139 Potassium 3.4 L Chloride 109 Carbon Dioxide 17 L Anion Gap 13 BUN 9 Creatinine 0.7 Estimated Creat Clear 33.81 Estimated GFR 87 Glucose 89 Calcium 8.9 Magnesium 1.1 L Total Bilirubin 0.4 Direct Bilirubin 0.2 AST 60 H ALT 28 Alkaline Phosphatase 74 Troponin I < 0.01 Total Protein 6.5 Albumin 3.8 Ethyl Alcohol 0.05 H Lab Acknowledgement Imaging CT scan - head: Attestation: I have reviewed the pertinent imaging results. Radiologist's impression: No gross intra or extra-axial fluid collection, mass or edema. Moderate periventricular white matter hypoattenuation, likely chronic small vessel ischemic disease. No hydrocephalus is seen. Left convexity scalp hematoma. No acute fracture seen. Mucosal thickening is seen within maxillary sinuses. IMPRESSION: Left scalp hematoma without gross acute intracranial abnormality. Hip CT: Attestation: I have reviewed the pertinent imaging results. Radiologist's impression: Bone: There is a comminuted nondisplaced fracture involving the parasymphyseal region of the left superior and inferior pubic rami. There is a nondisplaced fracture in the anterior, of the left acetabulum. Joint: The visualized hip and SI joints are unremarkable. No significant joint effusion is seen. Soft tissue: A small soft tissue hematoma is present along the left anterior space of Retzius. No radiopaque foreign bodies are seen. The bladder is decompressed by a Ahuja catheter and is difficult to evaluate. Moderate vascular calcifications are present. IMPRESSION: 1. There is a comminuted nondisplaced fracture involving the parasymphyseal region of the left superior and inferior pubic rami. There is a nondisplaced fracture in the anterior, of the left acetabulum. Hip x-ray: Attestation: I have reviewed the pertinent imaging results. Radiologist's impression: No fracture. Normal hip joint alignment. Mild hip and sacroiliac osteoarthritis. No destructive focal bone lesions. Atherosclerosis. IMPRESSION: No acute traumatic finding in the pelvis or left hip. Discharge Plan Discharge Disposition: Home, Self-Care Date of Admission: 11/04/24 19:27 Attending Provider on Discharge: Sheila Graff Primary Care Provider: Rosio Houston Condition: Improved Anticipated Discharge Date/Time: 11/05/24 12:02 Discharge Medications: New lidocaine 5 % Adhesive Patch,Medicated 1 patch transdermal Q24H Qty: 15 0RF Continued Adult 50 Plus Probiotic 4 billion cell capsule 4,000 mmu cells PO QDAY Rx Instructions: administer with a meal atenolol 25 mg tablet 25 mg PO DAILY Qty: 90 3RF omeprazole 40 mg capsule,delayed release(DR/EC) 40 mg PO DAILY Qty: 90 3RF gemfibrozil 600 mg tablet 600 mg PO DAILY Qty: 90 3RF vitamin B complex-folic acid [B Complex 1 (with folic acid)] 0.4 mg tablet 1 tab PO DAILY levothyroxine 50 mcg tablet 50 mcg PO DAILY spironolactone 25 mg tablet 25 mg PO DAILY Qty: 90 1RF peg 3350-electrolytes [Golytely] 236-22.74-6.74 -5.86 gram recon soln 4,000 ml PO DIRECTED PRN (Reason: screening) Qty: 1 0RF Rx Instructions: 1 day prior to scopes, between 4 and 6 p.m., drink 8 oz glass every 15 minutes until half a gallon is gone. 6 hours prior to procedure, drink 8 oz glass every 15 minutes until second half gallon is gone. Discharge Orders: Discharge Order (Routine); Ordered 11/05/24 Ordered By: Sheila Graff Patient Education: Lidocaine (On the skin), Pelvic Fracture (DC) Activity Level: Activity as Tolerated, Weight Bearing as Tolerated and Use Walker Activity Detail: HOME PT ORDERED Discharge Diet: Regular Follow Up Appointments: Rosio Houston, [facility] [Primary Care Provider, Family Practice] - 11/13/24 11:30 am Referral Note: [facility] for hospital follow-up. Forms: [facility] Info Instructions
[2024-11-05 12:17] VITALS: BP 139/86; PULSE 80; PULSE 89; RESP 16; TEMP 36.6; O2SAT 97
--- NOTE | 2024-11-05 12:24 | PC.NURSE ---
Patient voided with OT. Stated she felt she went a good amount. Nothing was recorded. Encouraged patient to come back if urinary retention occurs.
--- NOTE | 2024-11-05 14:07 | PC.SOCIAL ---
Addendum entered by CHASITY Harden 11/05/24 16:37: Discharge planning: child welfare caseworker heard back from [facility] late in the day stating they have to decline the referral due to being at full capacity with all disciplines in the [place] area. child welfare caseworker then sent the referral to [facility] via fax at fax number #[phone]. Social work to follow-up as needed. Original Note: Discharge planning: Pt was recommended for home care PT at discharge. Pt is planning to discharge today. child welfare caseworker met with the pt and her daughter, Mariama, to discuss home care agency options. child welfare caseworker provided the family with the list of Medical Home Care Agencies. Pt lives in [place]. child welfare caseworker first checked with [facility] out of [place] and they stated that they cannot accept the pt because their Physical Therapist is out on maternity leave right now. child welfare caseworker then started a the top of [facility] list and faxed the referral to [facility] at fax number #[phone] and will wait for a response. Pt did end up discharging from the hospital. child welfare caseworker will follow-up with the pt and her daughter via phone once an agency has been found. Pt and her daughter are aware that this worker will follow-up via phone. Social work to follow-up as needed.
--- NOTE | 2024-11-06 15:23 | PC.SOCIAL ---
Discharge planning: Pt was accepted by [facility] [employer] [employer] for home care PT. PT will then assess if OT is needed in the home. bull wheel worker spoke to pt's daughter, Mariama, today via phone and updated her that [facility] will be calling either her or the pt later today to set-up the intake appointment. Pt's daughter was thankful for the call. Social work to follow-up as needed.
== END 2024-11-05 12:45 | disposition home or self-care (01) ==
LOC: ED 19:03 → MEDSURG 19:28
PROVIDERS: Admitting Provider Family Medicine; Emergency Provider Emergency Medicine Emergency Medical Services; PCP Nurse Practitioner Family; Visit Provider Family Medicine
DX: S32.9XXA Fracture of unspecified parts of lumbosacral spine and pelvis, initial encounter for closed fracture (principal); S06.9X3A Unspecified intracranial injury with loss of consciousness of 1 hour to 5 hours 59 minutes, initial encounter; W19.XXXA Unspecified fall, initial encounter; F10.90 Alcohol use, unspecified, uncomplicated; E83.42 Hypomagnesemia; D51.0 Vitamin B12 deficiency anemia due to intrinsic factor deficiency; E87.20 Acidosis, unspecified; K21.9 Gastro-esophageal reflux disease without esophagitis; M25.552 Pain in left hip; R10.32 Left lower quadrant pain; M79.605 Pain in left leg; R40.20 Unspecified coma; E03.9 Hypothyroidism, unspecified; Z90.49 Acquired absence of other specified parts of digestive tract; Z90.710 Acquired absence of both cervix and uterus; Z87.891 Personal history of nicotine dependence; Z66 Do not resuscitate
CPT/HCPCS: 36415; 70450; 73502; 73700; 80048; 80076; 82077; 83735; 84484; 85025; 93005; 96365; 96372; 96375; 97110; 97116; 97161; 97165; 97530; 99284; 99285; A9153; A9270; G0378; J1650; J2405; J3475

== ENCOUNTER 2024-12-11 12:10 | Outpatient (CLI) | payer MEDICARE, BC, SELFPAY | END 2024-12-11 12:11 | disposition home or self-care (01) | LOC: FRMREF 12:12 | PROVIDERS: PCP Nurse Practitioner Family; Visit Provider Nurse Practitioner Family | DX: E03.9 Hypothyroidism, unspecified (principal); E87.6 Hypokalemia | CPT/HCPCS: 80053; 84443 ==

== ENCOUNTER 2024-12-16 08:06 | Outpatient (CLI) | payer MEDICARE, BC, SELFPAY | END 2024-12-16 08:07 | disposition home or self-care (01) | LOC: NFLDREF 12-18 15:09 | PROVIDERS: PCP Nurse Practitioner Family; Referring Provider Nurse Practitioner Family; Visit Provider Physician Assistant Medical | DX: N39.0 Urinary tract infection, site not specified (principal) | CPT/HCPCS: 87086 ==

== ENCOUNTER 2024-12-25 09:43 | Outpatient (CLI) | payer MEDICARE, BC, SELFPAY ==
--- NOTE | 2024-12-25 10:00 | CRLHL7_ITS ---
For Patients: As a result of the Century Cures Act, medical imaging exams and procedure reports are released immediately into your electronic medical record. You may view this report before your referring provider. If you have questions, please contact your health care provider. INDICATION: Low back pain. History of fall 11/04/2024. Evaluate for fracture. TECHNIQUE: CT of the lumbar spine without contrast. Coronal and sagittal reformats are included. COMPARISON: Lumbar spine radiographs from 12/11/2024. FINDINGS: A transitional segment at the lumbosacral junction with bilateral transverse process/sacral ala integration. Designated S1 in this report. Fractures and acute findings: L2 superior endplate fracture with mild height loss and slight retropulsion of posterior superior cortex. L3 superior endplate fracture with [id number] height loss and slight retropulsion of posterior superior cortex. Hardware and surgical findings: None. Spinal alignment: Accentuated lumbar lordosis. Trace anterolisthesis of L1 on L2. Trace anterolisthesis of L5 on S1. Signficant degenerative changes: Mild disc bulging L3-4, L4-5 and L5-S1. Facet arthrosis at the L4-5 and L5-S1 levels. No CT visualized high-grade spinal canal or neural foraminal stenosis at any imaged level. Soft tissues: Tortuous atherosclerotic abdominal aorta and branch vessels. Nonobstructing left-sided renal calculus. IMPRESSION: 1. Transitional segment designated S1 in this report. 2. L2 superior endplate fracture with mild height loss and slight retropulsion of posterior superior cortex. L3 superior endplate fracture with [id number] height loss and slight retropulsion of posterior superior cortex. No significant spinal canal stenosis from retropulsion at either level. While technically age indeterminate, these are subacute appearing and are consistent with the patient`s history prior fall. Please note that all CT scans at this facility use dose modulation, iterative reconstruction, and/or weight-based dosing when appropriate to reduce radiation dose to as low as reasonably achievable. Dictated by Jerry Arguello MD @ 12/26/2024 2:21:36 PM (Electronically Signed)
== END 2024-12-25 09:44 | disposition home or self-care (01) ==
LOC: CT 09:44
PROVIDERS: PCP Nurse Practitioner Family; Visit Provider Nurse Practitioner Family
DX: M54.50 Low back pain, unspecified (principal); M84.48XA Pathological fracture, other site, initial encounter for fracture
CPT/HCPCS: 72131

== ENCOUNTER 2024-12-27 08:45 | Outpatient (CLI) | payer MEDICARE, BC, SELFPAY | END 2024-12-27 08:46 | disposition home or self-care (01) | LOC: NFLDREF 12-31 17:52 | PROVIDERS: PCP Nurse Practitioner Family; Referring Provider Nurse Practitioner Family; Visit Provider Nurse Practitioner Family | DX: N39.0 Urinary tract infection, site not specified (principal) | CPT/HCPCS: 87086 ==

== ENCOUNTER 2025-03-02 11:49 | Inpatient (IN) | payer MEDICARE, BC, SELFPAY ==
--- OUTSIDE RECORDS SUMMARY | 2024-12-17 09:38 | XMS_ITS | Continuity of Care Document ---
Author Organization [facility] Address [address] [address] [place] [address] Phone Care Team Providers Care Cannon Crewmember Name Role Phone Raphael Jeffers DO Unavailable Unavailable Allergies, Adverse Reactions, Alerts Substance Reaction Status Criticality trimethoprim VomitingNausea Active No Informatio n sulfamethoxazole VomitingNausea Active No Inform ation losartan Active No Information cefdinir Active No Information potassium Active No Information fenofibrate Active No Information Medications Medication Instructions Dosage Effective Dates (start - stop) Status Comments levothyroxine 50 mcg tablet take 1 tablet by oral route every day 50 MCG - Active spironolactone 25 mg tablet take 1 tablet [...] cell capsule - Active Procedures Procedure Date Established Level 4 Moderate Offic Cons New/estab Mod-hi Routine Serum Collection Advance Directives Directive Yes / No Effective Date File Name No Information Encounters Encounter Description Practice Location Reason(s) For Visit Diagnoses Date Provider Providers Copied on Encounter [facility], [address] [address], [place], [id number], [place] tel:[phone] [facility] No Information 5 Gabrielsucarly Chestere. [address], [place], [id number] , [place]. tel: [phone] Established Level 4 Moderate [facility], [address] [address], [place], [id number], [place] tel:[phone] [facility] GI Symptoms or Concerns (chief complaint) Unintentional weight lossAdenomatous polyp of colon, unspecified part of colon 5 Jasurdailin Chestere. [address], [address], [place], [id number] , [place]. tel: [phone] Referring Provider: Referral Self, USE FOR SELF REFERRALS. [facility], [address] [address], [place], [id number], [place] tel:[phone] [facility] GI Symptoms or Concerns (chief complaint) No Information 5 Zeyad He. [address], [address], [place], [id number] , [place]. tel: [phone] [facility], [address] [address], [place], [id number], [place] tel:[phone] [facility] No Information 5 Marcarly Raphael. [address], [address], [place], [id number] , [place]. tel: [phone] Referring Provider: Referral Self, USE FOR SELF REFERRALS. Offic Cons New/estab Mod-hi [facility], [address] [address], [place], [id number], [place] tel:[phone] [facility] GI Symptoms or Concerns (chief complaint) HematocheziaWeight lossEarly satietyAbnormal LFTs 5 Zeyad Chestere. [address], [address], [place], [id number] , [place]. tel:[phone] Referring Provider: Rosio Houston MOTION PICTURE EQUIPMENT MACHINIST, [address] [place], [address]. tel:[phone] Family History Family Member Type Diagnosis Age At Onset No Information Immunizations Vaccine Date Status Comments Respiratory syncytial virus (RSV), vaccine, recombinant, protein subunit RSV prefusion F, adjuvant reconstituted, 0.5 mL, preservative free administered Note: [facility] bi-direct ional interface ; Source: Other Registry Influenza, high-dose, split virus, trivalent, injectable, preservative free administered Note: [facility] bi-direct ional interface ; Source: Other Registry SARS-COV-2 (COVID-19) vaccin e, mRNA, spike protein, LNP, preservative free, 50 mcg/0.5 mL dose administered Note: [facility] bi-direct ional interface ; Source: Other Registry SARS-COV-2 (COVID-19) vaccin e, mRNA, spike protein, LNP, preservative free, 50 mcg/0.5 mL dose administered Note: [facility] bi-direct ional interface ; Source: Other Registry Influenza, high-dose, split virus, quadrivalent, injectable, preservative free administered Note: [facility] bi-direct ional interface ; Source: Other Registry Influenza, high-dose, split virus, quadrivalent, injectable, preservative free administered Note: [facility] bi-direct ional interface ; Source: Other Registry SARS-COV-2 (COVID-19) vaccin e, mRNA, spike protein, LNP, preservative free, 30 mcg/0.3mL dose administered Note: [facility] bi-direct ional interface ; Source: Other Registry Influenza, high-dose, split virus, quadrivalent, injectable, preservative free administered Note: [facility] bi-direct ional interface ; Source: Other Registry SARS-COV-2 (COVID-19) vaccin e, mRNA, spike protein, LNP, preservative free, 30 mcg/0.3mL dose administered Note: [facility] bi-direct ional interface ; Source: Other Registry SARS-COV-2 (COVID-19) vaccin e, mRNA, spike protein, LNP, preservative free, 30 mcg/0.3mL dose administered Note: [facility] bi-direct ional interface ; Source: Other Registry SARS-COV-2 (COVID-19) vaccin e, mRNA, spike protein, LNP, preservative free, 30 mcg/0.3mL dose administered Note: [facility] bi-direct ional interface ; Source: Other Registry Influenza, high-dose, split virus, quadrivalent, injectable, preservative free administered Note: [facility] bi-direct ional interface ; Source: Other Registry Influenza, high-dose, split virus, trivalent, injectable, preservative free administered Note: [facility] bi-direct ional interface ; Source: Other Registry Influenza, high-dose, split virus, trivalent, injectable, preservative free administered Note: [facility] bi-direct ional interface ; Source: Other Registry Prevnar 13 administered Note: [facility] bi-d irectional interface ; Source: Other Registry Afluria Qd administered Note: [facility] bi-directional interface ; Source: Other Registry Influenza, high-dose, split virus, trivalent, injectable, preservative free administered Note: [facility] bi-direct ional interface ; Source: Other Registry Afluria Qd administered Note: [facility] bi-directional interface ; Source: Other Registry Pneumovax 23 administered Note: [facility] bi-d irectional interface ; Source: Other Registry zoster vaccine, live administered Note: [facility] bi-directional interface ; Source: Other Registry tetanus toxoid, reduced diphtheria toxoid, and acellular pertussis vaccine, adsorbed administered Note: [facility] b i-directional interface ; Source: Other Registry Payers Payer name Insurance type Covered republican ID Authoriza tion(s) Medicare NGS MB [id number] [facility] Medicare Supplement BL [id number] Social History Type Description Quantity Date Captured Comments Alcohol Use Details Unknown Caffeine Use Details Unknown Tobacco Use Status No Information Smoking Status No Information Sex Female Chief Complaint And Reason For Visit No Information Reason For Referral Reason For Referral No Information Plan Of Treatment Date Type Action Status Referral Ordered: referred to Clinical Genetics () ordered Referral Ordered: Colonoscopy Appointment date/timeframe: 10/09/2024 ordered Referral Ordered: EGD Appointment date/timeframe: 10/09/2024 ordered History Of Present Illness Encounter Date Complaint History Of Prese nt Illness GI Symptoms or Concerns Denice Gallardo is a pleasant 83-year-old female presenting via virtual visit for early satiety and weight loss. She is joined by her daughter Mariama in clinic today. She was last seen in GI clinic on 09/05/2024 and please refer to my note from that date for additional details. She unfortunately recently suffered a fall after a syncopal event. She resulted in a fractured pelvis in several places. She was hospitalized for 1-1/2 days with concern for possible heatstroke at that time. Cardiac workup was reported to be negative by patient. For this hospitalization, she did complete her EGD and colonoscopy. EGD showed several medium pedunculated and sessile polyps without active bleeding. Biopsies from the Z-line were notable for intestinal metaplasia with distal and mid esophageal biopsies being negative. Gastric polyps were consistent with polypoid reactive fold for hyperplasia and fundic gland polyps. H. pylori was negative and duodenal biopsies were negative. On colonoscopy, she was noted to have 20 tubular adenomas that were removed.Since her endoscopic procedures, she has remained sober and denies any further alcohol use. She is continue to lose 7 pounds unintentionally. Otherwise denies any acute GI concerns. Of note, workup for her weight loss was notable for an elevated TSH and she has since been started on levothyroxine and is continue to titrate her dose.Appetite has been okay and is currently eating meals being prepared by her daughter. Has been using Aleve on a regular basis following her recent pelvic fracture. GI Symptoms or Concerns GI Symptoms or Concerns Denice Gallardo is [...] stool. Bowel habits have widely ranged between [place] 2 and 6. Hematochezia typically will occur once every 6 weeks and typically resolves spontaneously. She believes she has a hemorrhoid which might be contributing to her symptoms. Last colonoscopy was greater than 10 years ago in [place] but cannot recall findings at that time. She has no known family history of colorectal cancer.Of note, patient currently drinks 5 L of wine every 4 days. Her PCP has extensively counseled her on reducing her alcohol consumption which patient is agreeable to and planning established with a substance abuse counselor in [facility] MEDICAL HISTORY: HTN, HLD, GERD, Raynaud's, hiatal hernia, anxietyPAST SURGICAL HISTORY: Hysterectomy, D&C, 2 vaginal deliveriesFAMILY HISTORY: No known family history of colorectal cancer or autoimmune conditionsSOCIAL HISTORY: Former smoker, quit 50 years ago, 5 L of wine every 4 days, denies any recreational drug useENDOSCOPIC HISTORY:Colonoscopy: Last performed 10 years ago in [place] but cannot recall findings. She does report [...]
--- OUTSIDE RECORDS SUMMARY | 2024-12-17 09:38 | XMS_ITS | Continuity of Care Document ---
Author Organization [facility] Address [address] [address] [place] [address] Phone Care Team Providers Care High [employer] Foreign Language Tutor Name Role Phone Raphael Jeffers DO Unavailable [...] [facility], [address] [address], [place], [id number], [place] tel:[phone] [facility] No Information 5 Gabrielsucarly Chestere. [address], [address], [place], [id number] , [place]. tel: [phone] Established Level 4 Moderate [facility], [address] [address], [place], [id number], [place] tel:[phone] [facility] GI Symptoms or Concerns (chief complaint) Unintentional weight lossAdenomatous polyp of colon, unspecified part of colon 5 Jasurdailin Chestere. [address], [address], [place], [id number] , [place]. tel: [phone] Referring Provider: Referral Self, USE FOR SELF REFERRALS. [facility], [address] [address], [place], [id number], [place] tel:[phone] [facility] GI Symptoms or Concerns (chief complaint) No Information 5 Zeyad He. [address], [address], [place], [id number] , [place]. tel: [phone] [facility], [address] [address], [place], [id number], [place] tel:[phone] [facility] No Information 5 Marcarly Raphael. [address], [address], [place], [id number] , [place]. tel: [phone] Referring Provider: Referral Self, USE FOR SELF REFERRALS. Offic Cons New/estab Mod-hi [facility], [address] [address], [place], [id number], [place] tel:[phone] [facility] GI Symptoms or Concerns (chief complaint) HematocheziaWeight lossEarly satietyAbnormal LFTs 5 Zeyad Chestere. [address], [address], [place], [id number] , [place]. tel:[phone] Referring Provider: Rosio Houston MACHINE BINDER STRIPPER, [address] [place], [address]. tel:[phone] Family History Family Member Type Diagnosis Age [...] Registry Payers Payer name Insurance type Covered alliance party ID Authoriza tion(s) Medicare NGS MB [id number] [facility] Medicare Supplement BL [id number] Social History Type Description Quantity Date Captured [...] stool. Bowel habits have widely ranged between [place] 2 and 6. Hematochezia typically will occur once every 6 weeks and typically resolves spontaneously. She believes she has a hemorrhoid which might be contributing to her symptoms. Last colonoscopy was greater than 10 years ago in [place] but cannot recall findings at that time. She has no known family history of colorectal cancer.Of note, patient currently drinks 5 L of wine every 4 days. Her PCP has extensively counseled her on reducing her alcohol consumption which patient is agreeable to and planning established with a substance abuse counselor in [facility] MEDICAL HISTORY: HTN, HLD, GERD, Raynaud's, hiatal hernia, anxietyPAST SURGICAL HISTORY: Hysterectomy, D&C, 2 vaginal deliveriesFAMILY HISTORY: No known family history of colorectal cancer or autoimmune conditionsSOCIAL HISTORY: Former smoker, quit 50 years ago, 5 L of wine every 4 days, denies any recreational drug useENDOSCOPIC HISTORY:Colonoscopy: Last performed 10 years ago in [place] but cannot recall findings. She does report [...]
[2025-03-02] VITALS (35 sets, daily range): BP systolic 98–150; BP diastolic 59–96; PULSE 82–107; RESP 10–25; TEMP 36.8–37.7; O2SAT 91–100
--- OUTSIDE RECORDS SUMMARY | 2025-03-02 11:51 | XMS_ITS | Data Portability ---
Author Organization [place] [facility], [facility] Address [address] [facility] [address] [place] [address] Care Team Providers Care Speedometer Mechanic Name Role Phone [facility] Primary Care Pr ovider Assessment No assessment recorded. Plan of Treatment Reminders Order Date Submit Date Provider Last Modified By Organization Details Last Modified Time Details Appointments ESTABLISH ED 20 2024 08:20A Dior Teague PA-C Not available Not available Not available Lab urinary tract pathogens panel, DAI+probe , urine - add on labs: Chlamydia Trachomat is, Cytomegal ovirus, Herpes Simplex Virus (HSV) types 1/2, AILYN Virus, BK Virus, MRSA Phenotype s, Mycobacte rium Tuberculo sis, Nesseria Gonorrhea , Trichomon as Vaginalis 2024 025 [facility], [address], [address], [place], [address], 02/10/2025 12:16:20 urinalysi s, dipstick 2024 025 [email or web address] [facility], [address] [facility], [address], [place], [address], 02/10/2025 12:13:49 Referral None recorded. Procedures None recorded. Surgeries None recorded. Imaging None recorded. Medication Orders None recorded. Patient TargetsNo targets recorded. Patient Instructions Encounter Date Encounter Id Patient Instructions Last Modified By Organization Details Last Modified Time 02/10/2025 [id number] Patient is an 84-year-old female referred for UTI. -Patient with negative UC recently. Previously with 2 positive UCs 1 year ago involving a hospitalization. Unfortunately I do not have these results. -Given several negative urine cultures. Will obtain guidance culture as this will allow for testing for more atypical organisms. If negative culture, recommend work up for microscopic hematuria including cystoscopy, TRINI. -If guidance culture and cystoscopy negative, likely more OAB. Briefly reviewed medications, PFPT with bladder retraining, as initial options. Patient deferred starting this pathway at this time. -Discussed bladder irritants including carbonation, caffeine, alcohol worsening urgency, frequency. Patient consuming lots of coffee and wine daily. -Given post menopausal, recommend vaginal estrogen cream to reduce UTI risk, replenish vaginal tissue. Could consider cranberry supplement, probiotic. Patient deferred at this time. -Recommend follow up with female ELIECER in 1-2 weeks with full pelvic exam and through evaluation. Patient prefers to wait until culture results return. [email or web address] Not available 02/10/2025 12:48:30 Reason for Referral None Reported. Results Created Date Observation Date Name Description Value Unit Range Abnormal Flag Note LastModifiedBy Organization Detail LastModifiedTime 02/11/20 25 02/10/2025 GX - RECUR RENT PERSI STENT COMPL ICATE D UTI test result: SEE NOTES Yair nce, Voide d Urine , UTI Surgi chantale, Test Resul t: PATHO GENIC DNA DETEC JOSE ALFREDO# A*F Not Available [facility] [address] [place], [address], 02/11/2025 19:32:39 02/11/20 25 02/10/2025 GX - RECUR RENT PERSI STENT COMPL ICATE D UTI utiabnormalf lag: Marcio ce, Voided Urine, UTI Surgic al, UTIAbn ormalF lag: A abnormal Not Available [facility] [address] [place], [address], 02/11/2025 19:32:39 02/11/20 25 02/10/2025 GX - OTHER UROPA THOGE NS test result: SEE NOTES Yair nce, Voide d Urine , UTI Surgi chantale, Test Resul t: PATHO GENIC DNA NOT DETEC JOSE ALFREDO#* F Not Available [facility] [address] [place], [address], 02/11/2025 19:32:42 02/11/2002/10/2025 urina lysis , dipst ick BLOOD Negati ve Not Available [address], [place], [address], 02/10/2025 12:12:50 02/11/20 25 02/10/2025 urina lysis , dipst ick BILIRUBIN Negati ve Not Available [address], [place], [address], 02/10/2025 12:12:50 02/11/20 25 02/10/2025 urina lysis , dipst ick UROBILINOGEN 0.2 mg/dL (Norm) Not Available [address], [place], [address], 02/10/2025 12:12:50 02/11/20 25 02/10/2025 urina lysis , dipst ick KETONES Negati ve Not Available [address], [place], [address], 02/10/2025 12:12:50 02/11/20 25 02/10/2025 urina lysis , dipst ick PROTEIN Negati ve Not Available [address], [place], [address], 02/10/2025 12:12:50 02/11/2002/10/2025 urina lysis , dipst ick NITRITES Negati ve Not Available [address], [place], [address], 02/10/2025 12:12:50 02/11/20 25 02/10/2025 urina lysis , dipst ick GLUCOSE Negati ve Not Available [address], [place], [address], 02/10/2025 12:12:50 02/11/2002/10/2025 urina lysis , dipst ick p.H. 5.5 Not Available Hien n [address] [facility] [address], [place], [address], 02/10/2025 12:12:50 02/11/2002/10/2025 urina lysis , dipst ick S.G. (Specific [place]) 1.015 Not Available Jasmeet ford [address] [facility] [address], [place], [address], 02/10/2025 12:12:50 02/11/2002/10/2025 urina lysis , dipst ick LEUKOCYTES Negati ve Not Available Kimi [address] [facility] [address], [place], [address], 02/10/2025 12:12:50 Result Notes None recorded. Problems Name Problem SNOMED Code Status Onset Date Resolution Date Notes Provider Name and Address Organization Details Recorded Time Urinary tract infectious disease 92637081 Active Go bethea [facility] 11:32:15 Adenomatous polyp of colon 180755638 Active Go bethea [facility] 11:32:24 Problem Notes None recorded. Procedures Surgical History Date Name Laterality Status Provider Name and Address Organization Details Recorded Time 5 COMPLEX VISIT completed [address], [address], [facility] 02/10/2025 12:47:34 5 Past Data Reviewed completed [address],[facility] [address], [address], [facility] 02/10/2025 12:47:44 Imaging Results None recorded. Procedure Notes None recorded. Medical Equipment None Reported. Allergies No known drug allergies Medications Name Sig Start Date Stop Date Status Note LastModified by Organization Details LastModified Time atenolol 25 mg tablet TAKE 1 TABLET BY MOUTH EVERY DAY active Not Available Not Available No t Available ciprofloxac in 250 mg tablet TAKE 1 TABLET BY MOUTH TWICE A DAY FOR 5 DAYS 02/07 completed Not Available Not Available Not Available omeprazole 40 mg capsule,del ayed release TAKE 1 CAPSULE BY MOUTH EVERY DAY active Not Available Not Available No t Available tramadol 50 mg tablet TAKE 1 TABLET BY MOUTH TWICE DAILY NEEDED FOR PAIN active Not Available Not Available No t Available spironolact one 25 mg tablet TAKE 1 TABLET BY MOUTH EVERY DAY active Not Available Not Available No t Available Macrobid 100 mg capsule Take 1 capsule every 12 hours by oral route for 5 days. 02/24 completed Not Available Not Available Not Available clindamycin 1 % topical gel APPLY TOPICALLY TWICE A DAY FOR 21 DAYS active Not Available Not Available No t Available doxycycline monohydrate 100 mg capsule TAKE 1 CAPSULE BY MOUTH TWICE A DAY FOR 10 DAYS active Not Available Not Available No t Available gemfibrozil 600 mg tablet TAKE 1 TABLET (600MG) BY MOUTH EVERY DAY active Not Available Not Available No t Available levothyroxi ne 50 mcg tablet TAKE 1 TAB BY ORALLY DAILY active Not Available Not Available No t Available cephalexin 500 mg capsule TAKE 1 CAPSULE BY MOUTH 3 TIMES DAILY FOR 7 DAYS 02/07 completed Not Available Not Available Not Available lidocaine 5 % topical patch APPLY 1 PATCH TRANSDERM ALLY EVERY 24 HOURS active Not Available Not Available No t Available furosemide 20 mg tablet TAKE 1 TABLETBY MOUTH DAILY IN THE MORNING FOR 5 DAYS active Not Available Not Available No t Available GaviLyte-G 236 gram-22.74 gram-6.74 gram-5.86 gram oral solution PLEASE SEE ATTACHED FOR DETAILED DIRECTION S active Not Available Not Available No t Available Vitals Date Recorded Body weight Body mass index (BMI) Body height Provider Name and Address Organization Details Last Updated DateTime 02/10/2025 04973.75 g 17.9 kg/m2 167.64 cm Go Hansen [facility] 02/10/2025 11:29:24 Social History Question Answer Notes LastModified by Organizat ion Details LastModified Time Tobacco Smoking Status Former Smoker Go Hansen null, [facility] 02/10/2025 11:30:32 Do You Have An Advance Directive? No [email or web address] Information not available 02/10/2025 What Is Your Level Of Caffeine Consumption? Occasional [email or web address] Information not available 02/10/2025 When Did You Quit Smoking? 16+yearsandrew hadley [email or web address] Information not available 02/10/2025 Do You Have A Medical Power Of Supply Chain Logistics Manager? Yes [email or web address] Information not available 02/10/2025 What Was The Date Of Your Most Recent Tobacco Screening? 02/10/2025 [email or web address] Information not available 02/10/2025 How Much Tobacco Do You Smoke? 1 PPW [email or web address] Information not available 02/10/2025 Has Tobacco Cessation Counseling Been Provided? No [email or web address] Information not available 02/10/2025 How Many Days In The Past Year Have You Consumed 4 Or More Drinks? 0 [email or web address] Information not available 02/10/2025 Sex: Unknown Functional Status Question Answer Note LastModified by Organizat ion Details LastModified Time Do you or have you ever used any other forms of tobacco or nicotine? No [email or web address] Information not available 02/10/2025 What is your level of alcohol consumption? Occasional [email or web address] Information not available 02/10/2025 Mental Status None recorded. Family History Nothing Reported. Medical History No medical history recorded. Gynecological HistoryNo gynecological history recorded. Obstetrics History GPAL:G 0 P 0 0 0 0 Past Encounters Encounter ID Performer Location Encounter Start Date Encounter Closed Date Diagnosis/Indication Diagnosis SNOMED-CT Code Diagnosis ICD10 Code Diagnosis IMO Codes Diagnosis Note [id number] Madeline [place] [facility] [address] [address] 02/10/2025 11:21:36 02/10/2025 13:36:19 Urgent desire to urinate 56951964 R39.15 328492 Recurrent urinary tract infection 165229690 N39.0 122152 Microscopic hematuria 19 4768411 R31.29 155349 Health Concerns Section Related Observation LastModified by Organization Detai ls LastModified Time None Recorded Concern Status LastModified by Organization Details LastModified Time None Recorded Advance Directives Directive N: Payers Insurance Date Sequence Insurance Name Policy Number Policy Yañez Covered Member ID Yañez Member ID Guarantor Name 03/02/2025 2 [place] [facility] [place] (MEDICARE SUPPLEMENT) [id number] Annie Gallardo [id number] Annie Gallardo 03/02/2025 1 [place] [facility] [facility] Annie Gallardo [id number] Annie Gallardo 02/07/2025 2 [facility] [id number] Annie Gallardo [id number] Annie Gallardo Notes Date Note Type Note Provider Name and Address Organization Details Recorded Time 02/10/2025 text/html Patient is an 84-year-old female referred for UTI. Seen at [facility] urgent care 12/16/24. Nonsmoker. Daughter noted mild confusion. October 2024, fell. Afebrile. Given 5 days of ciprofloxacin 250 mg twice daily. UA 5 1 0 WBCs, 2-5 RBCs. Few squamous cells, few bacteria, few yeast. Negative culture. History of recurrent UTIs: Patient with 2 positive cultures 1 year ago October, treated 9 x with antibiotics based on symptoms. She notes frequency 1-2 hours, urgency, denies dysuria. Night time 1x. Denies hematuria, fever, chills.-Urge fecal incontinence. 4-6 Pads and 1 depends daily. No urinary incontinence.Sympto ms improve with antibiotics: Yes.History of kidney stones: Yes.Previous abdominal surgeries: Yes, hysterectomy 35+ years ago.Fluids: Drinks 2-3 glasses wine, juice, 2 cups of coffee daily, ensure, 16 oz water.Constipation: NoPatient has tried Imaging: None. Madeline Houston [address] [place] [address],[address], [place], [address], [facility] 02/10/2025 12:48:37 OBGyn Episode No OBEpisode recorded.
--- OUTSIDE RECORDS SUMMARY | 2025-03-02 11:51 | XMS_ITS | Clinical Summary ---
Author Organization [place] Address [address] [place] [address] Care Team Providers Care Outsole Tacker Name Role Phone Candy Knight MD Primary Care Pr ovider Allergies Active Allergy Reactions Criticality Noted Date [...] on file Legal Sex Female 9:15 AM AFRICAN HISTORY PROFESSOR Gender Identity Not on file Sexual Orientation Not on file Last Filed Vital Signs Vital Sign Reading Time Taken Comments Blood Pressure 111/70 05/16/2023 10:54 AM AFRICAN HISTORY PROFESSOR Pulse 67 05/16/2023 10:54 AM AFRICAN HISTORY PROFESSOR Temperature - - Respiratory Rate - - Oxygen Saturation 100% 05/16/2023 10:54 AM AFRICAN HISTORY PROFESSOR Inhaled Oxygen Concentration - - Weight 52.3 kg (115 lb 3.2 oz) 05/16/2023 10:54 AM AFRICAN HISTORY PROFESSOR Height 166.4 cm (5' 5.5) 05/16/2023 10:54 AM CS T Body Mass Index 18.88 05/16/2023 10:54 AM AFRICAN HISTORY PROFESSOR Plan of Treatment Health Maintenance Due Date Last Done Comments ADVANCE CARE PLANNING 1942 ANNUAL REVIEW OF HM ORDERS 1942 DEXA 1942 FALL RISK ASSESSMENT 11/11/2007 MEDICARE ANNUAL WELLNESS VISIT 11/11/2007 ZOSTER VACCINE (2 of 3) 05/23/2012 03/28/2012 RSV VACCINE (1 - 1-dose 75+ series) 2017 DTAP/TDAP/TD VACCINE (2 - Td or Tdap) 03/15/2021 03/15/2011 PHQ-2 (once per calendar year) 2024 COVID-19 VACCINE ( - season) 2025 03/30/2023, 09/21/2021, 03/02/2021, Additional history exists INFLUENZA VACCINE (#1) 2025 , 03/11/2022, 03/10/2021, Additional history exists PNEUMOCOCCAL VACCINE 50+ YEARS Completed 09/21/2017, 03/25/2014 HPV VACCINE (No Doses Required) Completed MENINGITIS VACCINE Aged Out No longer eligible based on patient's age to complete this topic Insurance [place] Care Teams Outsole Tacker Relationship Specialty Start Date End Date Candy Knight MD PCP - General Family Medicine 05/02/23
--- OUTSIDE RECORDS SUMMARY | 2025-03-02 11:51 | XMS_ITS | Continuity of Care Document ---
Author Organization [place] - [facility], [facility] Address [address] [place] [address] Care Team Providers Care Machine Ii Trimmer Name Role Phone [facility] Primary Care Pr ovider Assessment No assessment recorded. Plan of Treatment Reminders Order Date Submit Date Provider Last Modified By Organization Details Last Modified Time Details Appointments ESTABLISH ED 20 2024 08:20A M Ceci Teague PA-C Not available Not available Not available Lab urinary tract pathogens panel, DAI+probe , urine - add on labs: Chlamydia Trachomat is, Cytomegal ovirus, Herpes Simplex Virus (HSV) types 1/2, AILYN Virus, BK Virus, MRSA Phenotype s, Mycobacte rium Tuberculo sis, Nesseria Gonorrhea , Trichomon as Vaginalis 2024 025 [facility], [address], [address], [place], [address], 02/10/2025 12:16:20 urinalysi s, dipstick 2024 025 [email or web address] [facility], [address], [address], [place], [address], 02/10/2025 12:13:49 Referral None recorded. Procedures None recorded. Surgeries None recorded. Imaging None recorded. Medication Orders None recorded. Patient TargetsNo targets recorded. Patient Instructions Encounter Date Encounter Id Patient Instructions Last Modified By Organization Details Last Modified Time 02/10/2025 [id number] Patient is an 84-year-old female referred for [...] prefers to wait until culture results return. [email or web address] Not available 02/10/2025 12:48:30 Reason for Referral None Reported. Results Created Date Observation Date Name Description Value Unit Range Abnormal Flag Note LastModifiedBy Organization Detail LastModifiedTime 02/11/2002/10/2025 GX - RECUR RENT PERSI STENT COMPL ICATE D UTI test result: SEE NOTES Yair nce, Voide d Urine , UTI Surgi chantale, Test Resul t: PATHO GENIC DNA DETEC JOSE ALFREDO# A*F Not Available [facility] [address] [place], [address], 02/11/2025 19:32:39 02/11/20 25 02/10/2025 GX - RECUR RENT PERSI STENT COMPL ICATE D UTI utiabnormalf lag: Guidan ce, Voided Urine, UTI Surgic al, UTIAbn ormalF lag: A abnormal Not Available [facility] [address] [place], [address], 02/11/2025 19:32:39 02/11/20 25 02/10/2025 GX - OTHER UROPA THOGE NS test result: SEE NOTES Yair nce, Voide d Urine , UTI Surgi chantale, Test Resul t: PATHO GENIC DNA NOT DETEC JOSE ALFREDO#* F Not Available [facility] [address] [place], [address], 02/11/2025 19:32:42 02/11/2002/10/2025 urina lysis , dipst ick BLOOD Negati ve Not Available [address], [place], [address], 02/10/2025 12:12:50 02/11/20 25 02/10/2025 urina lysis , dipst ick BILIRUBIN Negati ve Not Available [address], [place], [address], 02/10/2025 12:12:50 02/11/20 25 02/10/2025 urina lysis , dipst ick UROBILINOGEN 0.2 mg/dL (Norm) Not Available [address], [place], [address], 02/10/2025 12:12:50 02/11/20 25 02/10/2025 urina lysis , dipst ick KETONES Negati ve Not Available [address], [place], [address], 02/10/2025 12:12:50 02/11/20 25 02/10/2025 urina lysis , dipst ick PROTEIN Negati ve Not Available [address], [place], [address], 02/10/2025 12:12:50 02/11/20 25 02/10/2025 urina lysis , dipst ick NITRITES Negati ve Not Available [address], [place], [address], 02/10/2025 12:12:50 02/11/20 25 02/10/2025 urina lysis , dipst ick GLUCOSE Negati ve Not Available [address], [place], [address], 02/10/2025 12:12:50 02/11/2002/10/2025 urina lysis , dipst ick p.H. 5.5 Not Available [facility] [address] [facility] [address], [place], [address], 02/10/2025 12:12:50 02/11/2002/10/2025 urina lysis , dipst ick S.G. (Specific [place]) 1.015 Not Available [facility] [place] [address] [facility] [address], [place], [address], 02/10/2025 12:12:50 02/11/2002/10/2025 urina lysis , dipst ick LEUKOCYTES Negati ve Not Available [facility] [address] [facility] [address], [place], [address], 02/10/2025 12:12:50 Result Notes None recorded. Problems Name Problem SNOMED Code Status Onset Date Resolution Date Notes Provider Name and Address Organization Details Recorded Time Urinary tract infectious disease 33486255 Active Go bethea [facility] 11:32:15 Adenomatous polyp of colon 526036551 Active Go bethea [facility] 11:32:24 Problem Notes None recorded. Procedures Surgical History Date Name Laterality Status Provider Name and Address Organization Details Recorded Time 5 COMPLEX VISIT completed Madeline [address], [address], [facility] 02/10/2025 12:47:34 Past Data Reviewed completed [address],[facility] [address], [address], [facility] 02/10/2025 12:47:44 Imaging Results None recorded. Procedure [...] Address Organization Details Last Updated DateTime 02/10/2025 10637.75 g 17.9 kg/m2 167.64 cm Go Hansen [facility] 02/10/2025 11:29:24 Social History Question Answer Notes LastModified by Organizat ion Details LastModified Time Tobacco Smoking Status Former Smoker Go bethea [facility] 02/10/2025 11:30:32 Do You Have An Advance Directive? No [email or web address] Information not available 02/10/2025 What Is Your Level Of Caffeine Consumption? Occasional [email or web address] Information not available 02/10/2025 When Did You Quit Smoking? 16+yearsandrew hadley [email or web address] Information not available 02/10/2025 Do You Have A Medical Power Of Rock Dust Sprayer? Yes [email or web address] Information not available 02/10/2025 What Was The Date Of Your Most Recent Tobacco Screening? 02/10/2025 Information not available 02/10/2025 How Much Tobacco Do You Smoke? 1 PPW [email or web address] Information not available 02/10/2025 Has Tobacco Cessation Counseling Been Provided? No [email or web address] Information not available 02/10/2025 How Many Days In The Past Year Have You Consumed 4 Or More Drinks? 0 [email or web address] Information not available 02/10/2025 Sex: Unknown Functional Status Question Answer Note LastModified by Organizat ion Details LastModified Time Do you or have you ever used any other forms of tobacco or nicotine? No [email or web address] Information not available 02/10/2025 What is your level of alcohol consumption? Occasional [email or web address] Information not available 02/10/2025 Mental Status None recorded. Family History Nothing Reported. Medical History No medical history recorded. Gynecological HistoryNo gynecological history recorded. Obstetrics History GPAL:G 0 P 0 0 0 0 Past Encounters Encounter ID Performer Location Encounter Start Date Encounter Closed Date Diagnosis/Indication Diagnosis SNOMED-CT Code Diagnosis ICD10 Code Diagnosis IMO Codes Diagnosis Note [id number] Madeline Houston [facility] [address] [facility] [address] [place] [address] 02/10/2025 11:21:36 02/10/2025 13:36:19 Urgent desire to urinate 86517270 R39.15 983303 Recurrent urinary tract infection 398613647 N39.0 410417 Microscopic hematuria 19 8486427 R31.29 276594 Health Concerns Section Related Observation LastModified by Organization Detai ls LastModified Time None Recorded Concern Status LastModified by Organization Details LastModified Time None Recorded Payers Encounter Date Sequence Insurance Name Policy Number Policy Yañez Covered Member ID Yañez Member ID Guarantor Name 02/10/2025 2 [place] [id number] Annie Gallardo [id number] Annie Gallardo 02/10/2025 1 [place] [facility] [employer] [facility] Annie Gallardo [id number] Annie Gallardo Notes Date Note Type Note Provider Name and Address Organization Details Recorded Time 02/10/2025 text/html Patient is an 84-year-old female referred for UTI. Seen at [facility] urgent care 12/16/24. Nonsmoker. Daughter noted [...] NoPatient has tried Imaging: None. Madeline Houston [address] [place] [address],[address], [place], [address], [facility] 02/10/2025 12:48:37 OBGyn Episode No OBEpisode recorded.
--- OUTSIDE RECORDS SUMMARY | 2025-03-02 11:51 | XMS_ITS | Clinical Summary ---
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 Gender Identity Not on file Sexual Orientation Not on file Obstetrics History Last Filed Vital Signs Vital Sign Reading Time Taken Comments Blood Pressure 144/76 06/01/2017 1:59 PM MULTIPLE NEEDLE STITCHER Pulse 89 06/01/2017 1:59 PM MULTIPLE NEEDLE STITCHER Temperature 36.7 C (98.1 F) 04/13/2016 2:41 PM MULTIPLE NEEDLE STITCHER Respiratory Rate - - Oxygen Saturation 97% 06/01/2017 1:59 PM MULTIPLE NEEDLE STITCHER Inhaled Oxygen Concentration - - Weight 56.3 kg (124 lb 3.2 oz) 06/01/2017 1:59 P M MULTIPLE NEEDLE STITCHER Height 167 cm (5' 5.75) 06/01/2017 1:59 PM MULTIPLE NEEDLE STITCHER Body Mass Index 20.2 06/01/2017 1:59 PM MULTIPLE NEEDLE STITCHER Plan of Treatment Health Maintenance Due Date Last Done Comments Tetanus booster 1953 Depression screening for age 12+ 1954 Pneumococcal series for age 50+ (1 of 1 - PCV) 1992 Zoster (shingles) series for age 50+ (1 of 2) 1992 DEXA/DXA scan for age 65+ 11/11/2007 RSV vaccine for adults or (1 - 1-dose 75+ series) 2017 BMI (ht and wt on same day) for age 18+ 06/01/2018 06/01/2017, 04/13/2016 COVID-19 vaccine series (2024- season) 2025 09/21/2021, 03/02/2021, 07/18/2020, Additional history exists Influenza Vaccine (#1) 2025 Hepatitis B series for 19+ Aged Out N o longer eligible based on patient's age to complete this topic Insurance MEDICARE [facility] ONLY [facility] AD[facility] Care Teams Recycler Forklift Driver Truck Driver Relationship Specialty Start Date End Date Gurdeep Galdamez MD PCP - General Family Practice 04/12/16
--- NOTE | 2025-03-02 12:31 | CRLHL7_ITS ---
For Patients: As a result of the Century Cures Act, medical imaging exams and procedure reports are released immediately into your electronic medical record. You may view this report before your referring provider. If you have questions, please contact your health care provider. INDICATION: Fell; pain left wrist. TECHNIQUE: Three views left wrist. FINDINGS: No fracture or dislocation. No bone or soft tissue abnormalities. Impression: Negative radiographic examination of the left wrist. Dictated by Romy Dumont MD @ 03/02/2025 2:56:15 PM (Electronically Signed)
--- NOTE | 2025-03-02 12:31 | CRLHL7_ITS ---
For Patients: As a result of the Century Cures Act, medical imaging exams and procedure reports are released immediately into your electronic medical record. You may view this report before your referring provider. If you have questions, please contact your health care provider. Indication: Fall, pain Technique: Noncontrast axial CT of the thoracic spine with coronal and sagittal reformats. Comparison: Thoracic spine CT 05/02/2020 Findings: Upper thoracic dextroconvex curvature with preserved kyphosis. Mild chronic superior endplate deformity at T1 and moderate chronic anterior wedge compression deformity of T5, with slight interval height loss but similar mild retropulsion at T5 relative to 05/02/2020. Included views of the cervical and lumbar spine are detailed in a separate report. No evidence for high-grade neural foraminal or spinal canal stenosis. Nonosseous findings are detailed in a separate report. Impression: 1. Chronic T5 anterior wedge compression deformity, with subtle interval height loss relative to the 05/02/2020 comparison. 2. No evidence of acute thoracic spine fracture. Please note that all CT scans at this facility use dose modulation, iterative reconstruction, and/or weight-based dosing when appropriate to reduce radiation dose to as low as reasonably achievable. Dictated by Rupa Gamez MD @ 03/02/2025 2:12:48 PM (Electronically Signed)
--- NOTE | 2025-03-02 12:31 | CRLHL7_ITS ---
For Patients: As a result of the Century Cures Act, medical imaging exams and procedure reports are released immediately into your electronic medical record. You may view this report before your referring provider. If you have questions, please contact your health care provider. Indication: Fall, pain Technique: Noncontrast axial CT of the cervical spine with coronal and sagittal reformats. Comparison: None. Findings: Patient motion artifact degrades image quality and limits evaluation. Nonspecific straightening of the normal cervical lordosis. No significant spondylolisthesis. Craniocervical junction appears within normal limits. Cervical vertebral body heights are grossly maintained. Degenerative Schmorl`s node at the C7 superior endplate. No acute fracture identified. Scattered spondylosis without evidence of high-grade spinal canal stenosis. Neural foraminal narrowing greatest on the left at C3-4, C5-6, and C6-7. Other non-osseous findings are detailed in a separate report. Impression: 1. No evidence of acute fracture or traumatic malalignment in the cervical spine. 2. Cervical spondylosis as detailed. Please note that all CT scans at this facility use dose modulation, iterative reconstruction, and/or weight-based dosing when appropriate to reduce radiation dose to as low as reasonably achievable. Dictated by Rupa Gamez MD @ 03/02/2025 2:16:37 PM (Electronically Signed)
--- NOTE | 2025-03-02 12:31 | CRLHL7_ITS ---
For Patients: As a result of the Cures Act, medical imaging exams and procedure reports are released immediately into your electronic medical record. You may view this report before your referring provider. If you have questions, please contact your health care provider. INDICATION: Injury. TECHNIQUE: Three-view study left elbow. FINDINGS: No fracture or dislocation. No bone or soft tissue abnormalities. Impression: Negative radiographic examination of the left elbow. Dictated by Romy Dumont MD @ 03/02/2025 2:50:29 PM (Electronically Signed)
--- NOTE | 2025-03-02 12:31 | CRLHL7_ITS ---
For Patients: As a result of the Cures Act, medical imaging exams and procedure reports are released immediately into your electronic medical record. You may view this report before your referring provider. If you have questions, please contact your health care provider. INDICATION: Fell; right knee pain. TECHNIQUE: Two-view study right knee. FINDINGS: No acute fracture or dislocation. No bone or soft tissue abnormalities. No evidence of suprapatellar synovial effusion. IMPRESSION: Negative radiographic examination of the right knee. Dictated by Romy Dumont MD @ 03/02/2025 2:54:16 PM (Electronically Signed)
--- NOTE | 2025-03-02 12:31 | CRLHL7_ITS ---
For Patients: As a result of the Century Cures Act, medical imaging exams and procedure reports are released immediately into your electronic medical record. You may view this report before your referring provider. If you have questions, please contact your health care provider. INDICATION: Fall. Pain. TECHNIQUE: Axial intravenously infused CT cuts were performed from the thoracic inlet to the below the ischial tuberosities with the infusion of 53 mL of Isovue-370. Maximum intensity projection images were included of the lungs. FINDINGS: There is no pulmonary contusion or pneumothorax. There are two 6 mm nodules at the right lung base (for example see image 66 series 12). There no nodules or masses the are suspicious for malignancy. There are no pleural or pericardial fluid collections. There are no enlarged hilar, mediastinal or axial lymph nodes. There is no mediastinal hematoma. The thoracic inlet appears normal. No rib fractures are identified. There is a 9 mm nonobstructive calculus of the left kidney. The right kidney appears normal. There are few liver cysts. The spleen, pancreas and adrenals appear normal. There is no free intraperitoneal air or fluid. There are no enlarged retroperitoneal or mesenteric lymph nodes. The colon and small bowel appear normal. The appendix cannot be identified with certainty. There are no pericecal inflammatory changes. There has been a hysterectomy. The urinary bladder appears normal. There is no iliac or inguinal lymphadenopathy. There are mild superior endplate compression fractures of L1 and L2 favored to be of an acute nature. The pedicles and posterior elements are intact. IMPRESSION: 1. No traumatic abnormality within the chest. 2. Mild superior endplate compression fractures L1 and L2 favored be an acute nature. 3. There is a 9 mm nonobstructive calculus within the left kidney. Please note that all CT scans at this facility use dose modulation, iterative reconstruction, and/or weight-based dosing when appropriate to reduce radiation dose to as low as reasonably achievable. Dictated by Fabrice Rueda MD @ 03/02/2025 4:06:24 PM (Electronically Signed)
--- NOTE | 2025-03-02 12:31 | CT_ITS ---
Patient: DOUGLAS PINON Facility:?[facility] Patient ID:?[id number] Site Patient ID:?[id number]. Site :?[id number] Study:?CT-Spine Lumbar -03/02/2025 3:21:04 PM Ordering Physician:Deo Cosby Final Report: Indication: Fall. Technique: CT of the lumbar spine was performed without intravenous contrast. Comparison: CT lumbar spine 12/25/2024. Findings: Lumbosacral transitional anatomy. Transitional segment is labeled as S1. Careful clinical correlation and radiographic localization is recommended prior to any planned surgical intervention. Interval slight progression of [id number] superior endplate compression deformity of L2. Similar appearing mild superior endplate compression deformity of L3. No additional fracture identified. Osteopenia. L1-2: Retropulsion of L2 fracture element resulting in mild spinal canal narrowing. No neural foraminal narrowing. L2-3: Disc bulge combined with facet arthropathy results in mild spinal canal narrowing. No neural foraminal narrowing. L3-4: Disc bulge results in mild spinal canal narrowing. No neural foraminal narrowing. L4-5: Trace anterolisthesis. Mild spinal canal narrowing. Minimal neural foraminal narrowing. L5-S1: Disc bulge results in mild spinal canal narrowing. Minimal neural foraminal narrowing. Nonobstructing left renal calculus. Atherosclerotic disease. Impression: 1. Lumbosacral transitional anatomy. Transitional segment is labeled as S1. Careful clinical correlation and radiographic localization is recommended prior to any planned surgical intervention. 2. Interval mild progression of L2 superior endplate compression deformity. 3. Similar appearing mild superior endplate compression deformity at L3. 4. Stable mild retropulsion of the L2 and L3 vertebral elements, with minimal to mild spinal canal narrowing at L1-2. 5. Stable mild spondylosis elsewhere. Please note that all CT scans at this facility use dose modulation, iterative reconstruction, and/or weight-based dosing when appropriate to reduce radiation dose to as low as reasonably achievable. Dictated by Carlos Meraz MD @ 03/02/2025 3:56:09 PM (Electronic Signature)
--- NOTE | 2025-03-02 12:31 | CRLHL7_ITS ---
For Patients: As a result of the Century Cures Act, medical imaging exams and procedure reports are released immediately into your electronic medical record. You may view this report before your referring provider. If you have questions, please contact your health care provider. INDICATION: Fall, pain TECHNIQUE: Noncontrast axial CT of the head. Coronal and sagittal reformats. Bone and soft tissue algorithms. COMPARISON: CT head 11/04/2024 FINDINGS: Patient motion artifact degrades image quality and limits evaluation. Left parietal scalp hematoma. No convincing evidence for acute skull fracture or intracranial hemorrhage. Generalized cerebral volume loss. No midline shift, hydrocephalus or herniation. Grossly preserved kilgore-white matter differentiation. Partially empty sella configuration. Calcific intracranial atherosclerotic plaquing. 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 No mastoid effusion. Bilateral lens implants. IMPRESSION: 1. Left parietal scalp hematoma. 2. No convincing evidence of skull fracture or acute intracranial hemorrhage given extensive artifact from patient motion. Please note that all CT scans at this facility use dose modulation, iterative reconstruction, and/or weight-based dosing when appropriate to reduce radiation dose to as low as reasonably achievable. Dictated by Rupa Gamez MD @ 03/02/2025 2:08:30 PM (Electronically Signed)
--- NOTE | 2025-03-02 12:31 | CRLHL7_ITS ---
For Patients: As a result of the Cures Act, medical imaging exams and procedure reports are released immediately into your electronic medical record. You may view this report before your referring provider. If you have questions, please contact your health care provider. INDICATION: Fell. Technique: Three-view study right elbow. FINDINGS: No acute fracture-dislocation. No bone or soft tissue abnormalities. IMPRESSION: Negative radiographic examination of the right elbow. Dictated by Romy Dumont MD @ 03/02/2025 2:52:16 PM (Electronically Signed)
--- NOTE | 2025-03-02 12:53 | ED.FALL ---
HPI - Fall General Date Seen: 03/02/25 Chief Complaint: Fall/Minor Trauma Stated Complaint: Fall Time Seen by Provider: 03/02/25 11:49 Source: patient, family and EMS Mode of arrival: EMS Limitations: no limitations History of Present Illness HPI Narrative: Patient is an 84-year-old female presenting to the emergency department for a fall. She is brought in by EMS. Her neighbor went to go bring her the paper as the notice she did not pick it up this morning. When they did they noted that she was on the ground. Due to that her daughter was called. Her daughter states she last talked to her on Monday but did text her on Monday. She states at that time the patient seemed to be acting normally. Now she says the patient seems to be confused. The patient does live alone and she states last time patient was confused like this was with the last time she fell. At that time she did have lumbar fractures and a pelvic fracture. Patient is currently mostly complaining about pain to her left lateral ribs. She is also complaining about back pain and her daughter states she has been having this back pain since her previous fall. Patient also complains 1 left wrist pain. The patient told her daughter she has been down for 4 hours but there is no way to confirm this at this time. Patient is confused and says she has been down anywhere from 90 minutes to 90 hours. Related Data Home Medications ?Medication ?Instructions ?Recorded ?Confirmed vitamin B complex-folic acid 0.4 1 tab PO DAILY 10/22/23 02/21/25 mg tablet (B Complex 1 (with folic acid)) lidocaine 4 % topical cream 1 applic topical BID 11/13/24 02/21/25 kqnhtcuu-hjswldhu-nqlcl acid 500 tab PO 11/13/24 02/21/25 mcg-lutein 5 mg-zeaxanth 1 mg tablet (Macular Vitamin) nitrofurantoin 1 cap PO Q12H 02/21/25 02/21/25 monohydrate/macrocrystals 100 mg capsule Previous Rx's ?Medication ?Instructions ?Recorded levothyroxine 50 mcg tablet 50 mcg PO DAILY #90 tabs 11/13/24 atenolol 25 mg tablet 25 mg PO DAILY #90 tabs 11/18/24 spironolactone 25 mg tablet 25 mg PO DAILY #90 tabs 11/18/24 gemfibrozil 600 mg tablet 600 mg PO DAILY #90 tabs 12/11/24 omeprazole 40 mg capsule,delayed 40 mg PO DAILY #90 caps 12/24/24 release clindamycin phosphate 1 % topical 1 applic topical BID 21 days #60 02/21/25 gel grams Allergies Allergy/AdvReac Type Severity Reaction Status Date / Time fenofibrate Allergy Intermediate elevated Verified 02/21/25 08:11 transaminases potassium chloride Allergy Intermediate pruritis Verified 02/21/25 08:11 cefdinir Allergy Unknown decreased Verified 02/21/25 08:11 appetite, weight loss, diarrhea losartan AdvReac Intermediate pruritis Verified 02/21/25 08:11 Sulfamethoxazole / AdvReac Unknown nausea and Uncoded 02/21/25 08:11 trimethoprim vomiting Review of Systems Status of ROS: Reports: 10 or more systems reviewed and unremarkable except as noted in History and below [facility] Medical History Fracture of lumbar spine ?S32.009A - Unspecified fracture of unspecified lumbar vertebra, initial encounter for closed fracture (ICD-10) Acute UTI ?N39.0 - Urinary tract infection, site not specified (ICD-10) Pedal edema ?R60.0 - Localized edema (ICD-10) Tubular adenoma of colon ?D12.6 - Benign neoplasm of colon, unspecified (ICD-10) Alcohol use disorder ?F19.90 - Other psychoactive substance use, unspecified, uncomplicated (ICD-10) Hypothyroidism ?E03.9 - Hypothyroidism, unspecified (ICD-10) Urinary tract infection ?N39.0 - Urinary tract infection, site not specified (ICD-10) Bacteremia ?R78.81 - Bacteremia (ICD-10) Mass of vulva ?N90.89 - Other specified noninflammatory disorders of vulva and perineum (ICD-10) Compression fracture of T6 vertebra ?S22.050A - Wedge compression fracture of T5-T6 vertebra, initial encounter for closed fracture (ICD-10) Calculus of kidney ?N20.0 - Calculus of kidney (ICD-10) Basal cell carcinoma (BCC) ?C44.91 - Basal cell carcinoma of skin, unspecified (ICD-10) Atherosclerosis of abdominal aorta ?I70.0 - Atherosclerosis of aorta (ICD-10) Surgical History History of wisdom tooth extraction (03/18/13) ?K08.409 - Partial loss of teeth, unspecified cause, unspecified class (ICD-10) History of hysterectomy (03/18/13) ?Z90.710 - Acquired absence of both cervix and uterus (ICD-10) History of appendectomy (03/18/13) ?Z90.49 - Acquired absence of other specified parts of digestive tract (ICD-10) Family History Mother Breast cancer, Onset Age: 80 Daughter Breast cancer Father Myocardial infarction, Onset Age: 60 Other Empyema Social History Narrative: former smoker, quit decades ago Reports 2 glasses of wine per day, acknowledges ongoing issues with alcohol use. Her daughter, Mariama, lives a couple miles away in his primary support and healthcare power of environmental attorney. Code status is DNR. What is your current living situation?: I presently have a place to live Problems where you live: no known problems Problems where you live details: N/A In the past 12 months, utilities in danger of being shut off: no In past 12 months, lack of transportation kept you from medical appts, meetings, work, or getting things needed for daily living: declined to answer In the past 12 mos, have been you worried that your food would run out before you had money to buy more?: never true In the past 12 mos, the food you bought just didn't last and you didn't have money to buy more?: never true Highest level of school completed/degree received: some college, no degree Smoking Status: Never smoker Do you use any of these nicotine containing products: None How often do you have a drink containing alcohol: 2-3 times a week Alcohol type: wine Alcohol type details: States she has a couple of glasses a wine a few times a week How many standard drinks containing alcohol do you have on a typical day: 1 or 2 How often do you have six or more drinks on one occasion: Never AUDIT-C Alcohol total score: 3 Non-prescribed substance use: denies use Caffeine: Yes (a couple cups of coffee in AM) How often does anyone, including family, friends and others, physically hurt you: never How often does anyone, including family, friends and others, insult or talk down to you: never How often does anyone, including family, friends and others, threaten you with harm: never How often does anyone, including family, friends and others, scream or curse at you: never service: No Exam Narrative: Exam Narrative: Const: Well-nourished, Well-developed, in moderate distress Eyes: PERRL, no conjunctival injection, and symmetrical lids HENT: Atraumatic external nose and ears. Moist mucous membranes. Neck: Symmetric, trachea midline, No thyromegaly. CVS: RRR, No murmurs or gallops. Peripheral pulses 2+ and equal in all extremities RESP: Unlabored respiratory effort. Clear to auscultation bilaterally. GI: Nontender/Nondistended, No rebound or guarding. MSK:Extremities w/o deformity, tenderness noted to left elbow and right elbow along with tenderness to left wrist. Also has some mild midline tenderness in multiple spots little her lumbar shows and thoracic spine. Mild tenderness to left hip. Mild tenderness to right knee. Most of her tenderness is to the left lower lateral ribs. Skin: Warm, Dry. Bruising throughout Neuro: Normal Muscle tone, No focal neurological deficits. Psych: Awake, Alert, & Oriented x3. Appropriate mood and affect. Const: Vital Signs, click to edit/add: Vital Signs - 24 hr 03/02/25 12:11 03/02/25 12:14 03/02/25 12:15 Temperature 98.6 F Pulse Rate 88 90 Pulse Rate [Right Pulse Oximeter] 88 Respiratory Rate 16 18 19 Blood Pressure Blood Pressure [Ri ght Upper Arm] 121/80 Pulse Oximetry 91 96 98 Oxygen Delivery Me thod Room Air 03/02/25 12:30 03/02/25 12:32 03/02/25 12:45 Temperature Pulse Rate 88 87 88 Pulse Rate [Right Pulse Oximeter] Respiratory Rate 24 20 24 Blood Pressure 132/91 H Blood Pressure [Ri ght Upper Arm] Pulse Oximetry 98 100 98 Oxygen Delivery Me thod 03/02/25 13:00 03/02/25 13:03 03/02/25 14:06 Temperature Pulse Rate 87 90 88 Pulse Rate [Right Pulse Oximeter] Respiratory Rate 23 22 Blood Pressure 149/86 H 150/83 H Blood Pressure [Ri ght Upper Arm] Pulse Oximetry 99 97 95 Oxygen Delivery Me thod 03/02/25 14:07 03/02/25 14:15 03/02/25 14:30 Temperature Pulse Rate 88 91 86 Pulse Rate [Right Pulse Oximeter] Respiratory Rate 22 22 Blood Pressure Blood Pressure [Ri ght Upper Arm] Pulse Oximetry 98 97 97 Oxygen Delivery Me thod 03/02/25 14:32 03/02/25 14:45 03/02/25 15:00 Temperature Pulse Rate 87 82 90 Pulse Rate [Right Pulse Oximeter] Respiratory Rate 21 20 20 Blood Pressure 130/96 H Blood Pressure [Ri ght Upper Arm] Pulse Oximetry 98 97 97 Oxygen Delivery Me thod 03/02/25 15:01 03/02/25 15:15 03/02/25 15:30 Temperature Pulse Rate 91 95 102 H Pulse Rate [Right Pulse Oximeter] Respiratory Rate 20 19 14 Blood Pressure 135/82 Blood Pressure [Ri ght Upper Arm] Pulse Oximetry 95 94 91 Oxygen Delivery Me thod 03/02/25 15:32 03/02/25 15:45 03/02/25 16:00 Temperature Pulse Rate 99 99 102 H Pulse Rate [Right Pulse Oximeter] Respiratory Rate 18 23 25 H Blood Pressure 126/78 Blood Pressure [Ri ght Upper Arm] Pulse Oximetry 93 95 98 Oxygen Delivery Me thod 03/02/25 16:01 Temperature Pulse Rate 100 Pulse Rate [Right Pulse Oximeter] Respiratory Rate 25 H Blood Pressure 133/77 Blood Pressure [Ri ght Upper Arm] Pulse Oximetry 95 Oxygen Delivery Me thod Course Vital Signs Vital signs: Initial Vital Signs Pulse Rate 88 03/02/25 12:11 Respiratory Rate 16 03/02/25 12:11 Pulse Oximetry 91 03/02/25 12:11 Vital Signs Pulse Rate 88 03/02/25 12:11 Respiratory Rate 16 03/02/25 12:11 Pulse Oximetry 91 03/02/25 12:11 Temperature 98.6 F 03/02/25 12:14 Pulse Rate 100 03/02/25 16:01 Respiratory Rate 25 H 03/02/25 16:01 Blood Pressure 133/77 03/02/25 16:01 Pulse Oximetry 95 03/02/25 16:01 Oxygen Delivery Method Room Air 03/02/25 12:14 Medications Administered Medications: Discontinued Medications Generic Name Dose Route Start Last Admin Trade Name Pillo PRN Reason Stop Dose Admin Magnesium Sulfate 2 gm in 50 mls @ 25 mls/hr 03/02/25 13:36 03/02/25 14:11 Magnesium Iv IVPB 03/02/25 15:35 25 mls/hr ONCE ONE Administration MDM - Fall MDM Narrative Medical decision making narrative: Patient is an 84-year-old female presenting to the emergency department after a fall. Is unknown exactly how long she has known for but she claims it has only been 4 hours. Her daughter does state the patient is acting more confused than normal. Has recently been on 2 weeks of antibiotics for UTI. Broad workup will be done including CBC, CMP, creatinine kinase, urinalysis, viral swabs, EKG, troponin, alcohol level, magnesium. Will also do imaging for ever were but she states hurts this includes left wrist x-ray, bilateral elbow x-ray, right knee x-ray, cervical, thoracic, lumbar spine CTs, head CT, chest abdomen pelvis CT. Lab work returns as he does have a slightly elevated white count at 12.49 but does not meet any other SIRS criteria. Her sodium was slightly low at 127 in her magnesium is critically low at 0.7. Magnesium was replenished. EKG shows no acute concerning abnormalities as interpreted by myself. Troponin within normal limits. Creatinine kinase within normal limits. Urinalysis does not show any clear signs of UTI. Viral swabs are negative. Patient's images reviewed by myself and the radiologist. Only concerning abnormality shows a interval mild progression without to superior endplate compression deformity. On the CT chest abdomen pelvis dated think there are fractures to L1 and L2 but on the dedicated lumbar spine insert shows a mild progression of L2 and similar appearing previous L3 fracture. At this time patient be admitted to hospitalist service. She is agreeable to this plan. Lab Data Labs: Lab Results 03/02/25 03/02/25 03/02/25 Range/Units 12:33 12:50 14:12 WBC 12.49 H (4.50-11.00) K/uL RBC 4.29 (4.00-5.20) m/uL Hgb 14.7 (12.0-16.0) gm/dL Hct 40.5 (33.0-51.0) % MCV 94 (80-100) fL MCH 34 (26-34) pg MCHC 36 (32-36) gm/dL RDW Coeff of Michelle 11.4 L (11.5-15.5) % Plt Count 209 (140-440) K/uL Neut % (Auto) 94.1 H (42.0-72.0) % Lymph % (Auto) 3.2 L (20-44) % [place] % (Auto) 2.3 (0.0-11.0) % Eos % (Auto) 0.0 (0.0-7.0) % Baso % (Auto) 0.0 (0.0-3.0) % Neut # (Auto) 11.80 H (1.7-7.0) K/uL Lymph # (Auto) 0.40 L (0.90-2.90) K/uL [place] # (Auto) 0.30 (0.00-0.90) K/UL Eos # (Auto) 0.00 (0.00-0.50) K/uL Baso # (Auto) 0.00 (0.00-0.30) K/uL Abs Immat Gran (auto) 0.00 (0.00-0.30) K/uL Imm/Tot Granulo (auto) 0.4 % Sodium 127 L (135-149) mmol/L Potassium 4.7 (3.6-5.1) mmol/L Chloride 98 (96-114) mmol/L Carbon Dioxide 17 L (20-32) mmol/L Anion Gap 12 (7-15) mEq/L BUN 33 H (7-30) mg/dL Creatinine 1.1 (0.5-1.5) mg/dL Estimated GFR 50 ml/min Glucose 176 H (60-115) mg/dL Calcium 9.3 (8.4-10.6) mg/dL Magnesium 0.7 L* (1.5-2.6) mg/dL Total Bilirubin 1.3 (0.1-1.5) mg/dL AST 35 (12-35) U/L ALT 24 (4-35) U/L Alkaline Phosphatase 97 (40-150) U/L Total Creatine Kinase 58 (41-117) U/L Troponin I < 0.01 (0.01-0.04) ng/mL Total Protein 6.9 (6.0-8.3) g/dL Albumin 4.2 (3.3-5.0) g/dL Urine Color (Yellow) Urine Appearance (Clear) Urine pH (5.0-8.5) Ur Specific [place] (1.000-1.030) Urine Protein (Negative) Urine Glucose (UA) (Negative) Urine Ketones (Negative) Urine Blood (Negative) Urine Nitrite (Negative) Urine Bilirubin (Negative) Urine Urobilinogen (0.2-1.0) Ur Leukocyte Esterase (Negative) Urine RBC (0-2) Urine WBC (0-5) Ur Squamous Epith Cells (None-Few) Other Sediment (None) Urine Bacteria (None) Urine Yeast (None) Ethyl Alcohol < 0.01 (0.01-0.03) % SARS-CoV-2 (PCR) Negative SARS-CoV-2 (Negative) Influenza Type A (PCR) Negative PCR FLU A (Negative) Influenza Type B (PCR) Negative PCR FLU B (Negative) RSV (PCR) Negative PCR RSV (Negative) Lab Acknowledgement Test Added POC Creatinine 1.2 (0.6-1.3) mg/dl 03/02/25 Range/Units 14:45 WBC (4.50-11.00) K/uL RBC (4.00-5.20) m/uL Hgb (12.0-16.0) gm/dL Hct (33.0-51.0) % MCV (80-100) fL MCH (26-34) pg MCHC (32-36) gm/dL RDW Coeff of Michelle (11.5-15.5) % Plt Count (140-440) K/uL Neut % (Auto) (42.0-72.0) % Lymph % (Auto) (20-44) % [place] % (Auto) (0.0-11.0) % Eos % (Auto) (0.0-7.0) % Baso % (Auto) (0.0-3.0) % Neut # (Auto) (1.7-7.0) K/uL Lymph # (Auto) (0.90-2.90) K/uL [place] # (Auto) (0.00-0.90) K/UL Eos # (Auto) (0.00-0.50) K/uL Baso # (Auto) (0.00-0.30) K/uL Abs Immat Gran (auto) (0.00-0.30) K/uL Imm/Tot Granulo (auto) % Sodium (135-149) mmol/L Potassium (3.6-5.1) mmol/L Chloride (96-114) mmol/L Carbon Dioxide (20-32) mmol/L Anion Gap (7-15) mEq/L BUN (7-30) mg/dL Creatinine (0.5-1.5) mg/dL Estimated GFR ml/min Glucose (60-115) mg/dL Calcium (8.4-10.6) mg/dL Magnesium (1.5-2.6) mg/dL Total Bilirubin (0.1-1.5) mg/dL AST (12-35) U/L ALT (4-35) U/L Alkaline Phosphatase (40-150) U/L Total Creatine Kinase (41-117) U/L Troponin I (0.01-0.04) ng/mL Total Protein (6.0-8.3) g/dL Albumin (3.3-5.0) g/dL Urine Color Yellow (Yellow) Urine Appearance Clear (Clear) Urine pH 6.5 (5.0-8.5) Ur Specific [place] 1.015 (1.000-1.030) Urine Protein Negative (Negative) Urine Glucose (UA) Negative (Negative) Urine Ketones Negative (Negative) Urine Blood Negative (Negative) Urine Nitrite Negative (Negative) Urine Bilirubin Negative (Negative) Urine Urobilinogen 0.2 (0.2-1.0) Ur Leukocyte Esterase 1+ A (Negative) Urine RBC 0-2 (0-2) Urine WBC 5-10 A (0-5) Ur Squamous Epith Cells None (None-Few) Other Sediment Many A (None) Urine Bacteria None (None) Urine Yeast Many A (None) Ethyl Alcohol (0.01-0.03) % SARS-CoV-2 (PCR) (Negative) Influenza Type A (PCR) (Negative) Influenza Type B (PCR) (Negative) RSV (PCR) (Negative) Lab Acknowledgement POC Creatinine (0.6-1.3) mg/dl Imaging Data CT scan head: Attestation: I have reviewed the pertinent imaging results. Radiologist's impression: 1. Left parietal scalp hematoma. 2. No convincing evidence of skull fracture or acute intracranial hemorrhage given extensive artifact from patient motion. Please note that all CT scans at this facility use dose modulation, iterative reconstruction, and/or weight-based dosing when appropriate to reduce radiation dose to as low as reasonably achievable. Dictated by Rupa Gamez MD @ 03/02/2025 2:08:[address] scan cervical spine: Attestation: I have reviewed the pertinent imaging results. Radiologist's impression: 1. No evidence of acute fracture or traumatic malalignment in the cervical spine. 2. Cervical spondylosis as detailed. Please note that all CT scans at this facility use dose modulation, iterative reconstruction, and/or weight-based dosing when appropriate to reduce radiation dose to as low as reasonably achievable. Dictated by Rupa Gamez MD @ 03/02/2025 2:16:[address] scan thoracic spine: Attestation: I have reviewed the pertinent imaging results. Radiologist's impression: 1. Chronic T5 anterior wedge compression deformity, with subtle interval height loss relative to the 05/02/2020 comparison. 2. No evidence of acute thoracic spine fracture. Please note that all CT scans at this facility use dose modulation, iterative reconstruction, and/or weight-based dosing when appropriate to reduce radiation dose to as low as reasonably achievable. Dictated by Rupa Gamez MD @ 03/02/2025 2:12:[address] scan lumbar spine: Attestation: I have reviewed the pertinent imaging results. Radiologist's impression: 1. Lumbosacral transitional anatomy. Transitional segment is labeled as S1. Careful clinical correlation and radiographic localization is recommended prior to any planned surgical intervention. 2. Interval mild progression of L2 superior endplate compression deformity. 3. Similar appearing mild superior endplate compression deformity at L3. 4. Stable mild retropulsion of the L2 and L3 vertebral elements, with minimal to mild spinal canal narrowing at L1-2. 5. Stable mild spondylosis elsewhere. Please note that all CT scans at this facility use dose modulation, iterative reconstruction, and/or weight-based dosing when appropriate to reduce radiation dose to as low as reasonably achievable. Dictated by Carlos Meraz MD @ 03/02/2025 3:56:[address] Chest/Ab/Pelvis: Attestation: I have reviewed the pertinent imaging results. Radiologist's impression: 1. No traumatic abnormality within the chest. 2. Mild superior endplate compression fractures L1 and L2 favored be an acute nature. 3. There is a 9 mm nonobstructive calculus within the left kidney. Please note that all CT scans at this facility use dose modulation, iterative reconstruction, and/or weight-based dosing when appropriate to reduce radiation dose to as low as reasonably achievable. Dictated by Fabrice Rueda MD @ 03/02/2025 4:06:24 PM Left wrist x-ray: Attestation: I have reviewed the pertinent imaging results. Radiologist's impression: Negative radiographic examination of the left wrist. Dictated by Romy Dumont MD @ 03/02/2025 2:56:15 PM Right knee x-ray: Attestation: I have reviewed the pertinent imaging results. Radiologist's impression: Negative radiographic examination of the right knee. Dictated by Romy Dumont MD @ 03/02/2025 2:54:16 PM Left elbow x-ray: Attestation: I have reviewed the pertinent imaging results. Radiologist's impression: Negative radiographic examination of the left elbow. Dictated by Romy Dumont MD @ 03/02/2025 2:50:29 PM Right elbow x-ray: Attestation: I have reviewed the pertinent imaging results. Radiologist's impression: Negative radiographic examination of the right elbow. Dictated by Romy Dumont MD @ 03/02/2025 2:52:16 PM ECG Data Attestation: I personally reviewed and interpreted this ECG as follows: Prior ECG tracings: available for review Interpretation: Normal sinus rhythm with rate 97 beats per minute, normal intervals, borderline axis axis, no ST or T-wave abnormalities. Appears similar previous EKGs on file Discharge Plan Discharge Clinical Impression: Hypomagnesemia Altered mental status Qualifiers: Altered mental status type: unspecified Qualified Code(s): R41.82 - Altered mental status, unspecified Patient Disposition: Admitted As Inpatient Condition: Stable
[2025-03-02 13:02] LABS: Hematocrit* 40.5 % (33.0-51.0); Hemoglobin* 14.7 gm/dL (12.0-16.0); Immature Granulocytes Pct Auto 0.4 %; Lymphocytes Absolute Auto 0.40 K/uL (0.90-2.90); Mean Corpuscular HGB Conc 36 gm/dL (32-36); Mean Corpuscular Hemoglobin 34 pg (26-34); Mean Corpuscular Volume 94 fL (80-100); RDW Coefficient of Variation % 11.4 % (11.5-15.5); Red Blood Count* 4.29 m/uL (4.00-5.20); White Blood Count* 12.49 K/uL (4.50-11.00)
[2025-03-02 13:11] LABS: Creatinine, Point-of-Care* 1.2 mg/dl (0.6-1.3)
[2025-03-02 13:18] LABS: Immature Granulocytes Abs Auto 0.00 K/uL (0.00-0.30); Slide Review Reflex No
[2025-03-02 13:20] LABS: Albumin* 4.2 g/dL (3.3-5.0); Chloride* 98 mmol/L (96-114); Potassium* 4.7 mmol/L (3.6-5.1); Sodium* 127 mmol/L (135-149)
[2025-03-02 13:23] LABS: Alanine Aminotransferase* 24 U/L (4-35); Alkaline Phosphatase* 97 U/L (40-150); Anion Gap 12 mEq/L (7-15); Aspartate Amino Transferase* 35 U/L (12-35); Bilirubin Total* 1.3 mg/dL (0.1-1.5); Blood Urea Nitrogen* 33 mg/dL (7-30); Calcium* 9.3 mg/dL (8.4-10.6); Carbon Dioxide* 17 mmol/L (20-32); Creatine Kinase* 58 U/L (41-117); Creatinine* 1.1 mg/dL (0.5-1.5); Estimated Glomerular Filt Rate 50 ml/min; Glucose* 176 mg/dL (60-115); Total Protein* 6.9 g/dL (6.0-8.3)
[2025-03-02 14:07] LABS: PCR FLU A Negative PCR FLU A (Negative); PCR FLU B Negative PCR FLU B (Negative); PCR RSV Negative PCR RSV (Negative); SARS PCR* Negative SARS-CoV-2 (Negative)
[2025-03-02] MEDS: MAGNESIUM IV 2 GM/50 ML PIGGYBACK IVPB (14:11)
[2025-03-02 14:39] LABS: Ethanol* < 0.01 % (0.01-0.03)
--- NOTE | 2025-03-02 14:50 | PC.NURSE ---
pt cath UA collected and sent, brief changed and barrier cream applied
[2025-03-02 14:51] LABS: Appearance Urine Clear (Clear)
[2025-03-02 15:05] LABS: Other Sediment Urine Many
--- NOTE | 2025-03-02 17:25 | PM.IMHP1 ---
Assessment and Plan Assessment and plan (1) Hypomagnesemia: Problem comment: Recurrent problem, suspected to be related to alcohol use. No other obvious cause of magnesium wasting or malabsorption. Magnesium 0.7 on admission. Replace with IV in the hospital and oral as outpatient Status: Acute (2) Altered mental status: Problem comment: According to the daughter she was quite altered this morning but improving as the day has gone on Status: Acute (3) Closed head injury: Problem comment: With her fall and presumed loss of consciousness she had a closed head injury. Possibly a concussion. Unable to determine whether she had syncope, concussion with loss of consciousness, seizure or other event accounting for her inability to recall recent events Status: Acute (4) Accidental fall: Problem comment: Fall with loss of consciousness preceding or following head injury. Blood alcohol 0.05 in the ED. Status: Acute (5) Generalized weakness: Problem comment: Probably acute on chronic. 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 Status: Acute (6) Generalized pain: Problem comment: Multiple areas of pain and evidence on exam of multiple areas of bruising particularly in the legs. Degenerative changes and old fractures on skeletal imaging Status: Acute (7) Alcohol use disorder: Problem comment: daily wine drinking >2 glasses add MV/thiamine Uncertain what role this played in her fall and loss of consciousness. No history of withdrawal. CIWA protocol Daughter and patient have minimized daily alcohol use. Increased fall risk. Status: Acute (8) Dehydration: Problem comment: Moderately dehydrated on admission Status: Acute (9) Metabolic acidosis: Problem comment: Monitor and evaluate if not correcting quickly. Presumably related to being down overnight with no access to food and water Status: Acute (10) Cognitive impairment: Problem comment: Obtain [place]. With cognitive impairment and alcohol use I am concerned for her safety at home Status: Acute (11) Fracture of lumbar spine: Problem comment: 12/25/24 L2-L3 endplate fracture after fall. Appears unchanged on imaging today Status: Acute Plan 84-year-old female admitted to the hospital with being found down at home and unable to get up. Multiple problems outlined above. Low Magnesium appears to be most urgent. Pending further evaluation to determine functional status and monitor for other possible illnesses that a could account for her acute on chronic decline Total Time Spent Total Time Spent: Total time spent today is 80 minutes in reviewing outside records, coordination of care, discussion with patient and other providers ongoing management of loving knees him, frailty, alcohol use disorder and malnutrition. Hospitalist- H&P: [facility] History of Present Illness Time Seen by Provider: 17:25 Date Seen: 03/02/25 Chief complaint: Fall Narrative: Annie Gallardo is a 84 year old female found down on the floor this morning by her neighbor. Patient is unable to give much detail of the events leading up to this. She remembers that yesterday she was feeling a little nauseated and weak. She thinks late yesterday she may have sat on the floor and was too weak to get up. She then thinks he fell and hit her head possibly losing consciousness. In any case she believes that she spent most of the night on the floor in her kitchen. Her neighbor noted that she did not brick picker her paper this morning and came to check on her. She looked through the window and saw that she was lying on the floor. The neighbor called her daughter who came to get her. Secondhand report is that her daughter said that she seemed to have altered mental status and confusion earlier today but is better now. Patient does have a bruise on her left occipital scalp and she also reports some pain in the area of her buttock because she was lying on the floor so long. She reports pain in multiple other areas that were also evaluated in the emergency room. She does not have fever, chest pain, abdominal pain, vomiting, diarrhea or urinary symptoms. 11/04/2024 I admitted her hospital under circumstances that are similar to this. She apparently had an episode with loss of consciousness as well as a closed head injury and a fall. At that time I was concerned that alcohol use disorder may have been contributing to the problems that she was having at that time. She tells me she continues to drink at least 2 glasses of wine a day. 12/25/2024 she was evaluated and was found to have L2 and 3 superior endplate compression fractures on lumbar CT. Those remain present today. She is not primarily having low back pain but does report some sacral area pain and pain in her head where her bruise is present now. She has had longstanding problems with low magnesium which are suspected to be related to excessive alcohol consumption. She has never been treated with oral magnesium as an outpatient. Magnesium today is 0.7. She has not had chronic diuretic therapy, chronic PPI therapy, diarrhea or other malabsorption problems. She reports that she has had on and off longstanding nausea. Notably she has also had some weight loss. She has lost about 5 kg or about 10% of her weight in the last year. She reports she has adequate access for food and that her daughter cooks for her. She acknowledges that she has had significant muscle mass loss, likely contributing to her weakness. She was recently treated with doxycycline for a urinary tract infection for 10 days having completed the prescription this past week Review of Systems Narrative: She denies recent respiratory illness or respiratory symptoms, chest pain, palpitations, abdominal pain, vomiting, diarrhea, blood in her stool, urinary urgency frequency or dysuria, extremity edema. Review of systems is negative except as noted above Medical Decision Making Medical Decision Making Has patient completed a Health Care Directive: No [facility] Medical History (Updated 03/02/25 @ 18:01 by Connor Dee MD) Cognitive impairment ?R41.89 - Other symptoms and signs involving cognitive functions and awareness (ICD-10) Generalized pain ?R52 - Pain, unspecified (ICD-10) Generalized weakness ?R53.1 - Weakness (ICD-10) Fracture of lumbar spine ?S32.009A - Unspecified fracture of unspecified lumbar vertebra, initial encounter for closed fracture (ICD-10) Acute UTI ?N39.0 - Urinary tract infection, site not specified (ICD-10) Pedal edema ?R60.0 - Localized edema (ICD-10) Tubular adenoma of colon ?D12.6 - Benign neoplasm of colon, unspecified (ICD-10) Alcohol use disorder ?F19.90 - Other psychoactive substance use, unspecified, uncomplicated (ICD-10) Hypothyroidism ?E03.9 - Hypothyroidism, unspecified (ICD-10) Urinary tract infection ?N39.0 - Urinary tract infection, site not specified (ICD-10) Bacteremia ?R78.81 - Bacteremia (ICD-10) Mass of vulva ?N90.89 - Other specified noninflammatory disorders of vulva and perineum (ICD-10) Compression fracture of T6 vertebra ?S22.050A - Wedge compression fracture of T5-T6 vertebra, initial encounter for closed fracture (ICD-10) Calculus of kidney ?N20.0 - Calculus of kidney (ICD-10) Basal cell carcinoma (BCC) ?C44.91 - Basal cell carcinoma of skin, unspecified (ICD-10) Atherosclerosis of abdominal aorta ?I70.0 - Atherosclerosis of aorta (ICD-10) Surgical History History of wisdom tooth extraction (03/18/13) ?K08.409 - Partial loss of teeth, unspecified cause, unspecified class (ICD-10) History of hysterectomy (03/18/13) ?Z90.710 - Acquired absence of both cervix and uterus (ICD-10) History of appendectomy (03/18/13) ?Z90.49 - Acquired absence of other specified parts of digestive tract (ICD-10) Family History Mother Breast cancer, Onset Age: 80 Daughter Breast cancer Father Myocardial infarction, Onset Age: 60 Other Empyema Social History (Updated 03/02/25 @ 17:40 by Connor Dee MD) Narrative: former smoker, quit decades ago Reports 2 glasses of wine per day, acknowledges ongoing issues with alcohol use. Her daughter, Mariama, lives a couple miles away and is healthcare power of assistant prosecuting attorney. Patient reports that she has hired her daughter to be her caregiver for 3 hours in the morning and 3 hours in the afternoon each day. Her daughter sets up her medications and cooks for her. Code status is DNR. What is your current living situation?: I presently have a place to live Problems where you live: no known problems Problems where you live details: N/A In the past 12 months, utilities in danger of being shut off: no In past 12 months, lack of transportation kept you from medical appts, meetings, work, or getting things needed for daily living: declined to answer In the past 12 mos, have been you worried that your food would run out before you had money to buy more?: never true In the past 12 mos, the food you bought just didn't last and you didn't have money to buy more?: never true Highest level of school completed/degree received: some college, no degree Smoking Status: Never smoker Do you use any of these nicotine containing products: None How often do you have a drink containing alcohol: 2-3 times a week Alcohol type: wine Alcohol type details: States she has a couple of glasses a wine a few times a week How many standard drinks containing alcohol do you have on a typical day: 1 or 2 How often do you have six or more drinks on one occasion: Never AUDIT-C Alcohol total score: 3 Non-prescribed substance use: denies use Caffeine: Yes (a couple cups of coffee in AM) How often does anyone, including family, friends and others, physically hurt you: never How often does anyone, including family, friends and others, insult or talk down to you: never How often does anyone, including family, friends and others, threaten you with harm: never How often does anyone, including family, friends and others, scream or curse at you: never service: No Meds Home Medications and Allergies Home Medications ?Medication ?Instructions ?Recorded ?Confirmed ?Type vitamin B complex-folic acid 0.4 1 tab PO DAILY 10/22/23 02/21/25 History mg tablet (B Complex 1 (with folic acid)) levothyroxine 50 mcg tablet 50 mcg PO DAILY #90 tabs 11/13/24 02/21/25 Rx lidocaine 4 % topical cream 1 applic topical BID 11/13/24 02/21/25 History ntjrqlzv-nfoxxgqa-ngpze acid 500 tab PO 11/13/24 02/21/25 History mcg-lutein 5 mg-zeaxanth 1 mg tablet (Macular Vitamin) atenolol 25 mg tablet 25 mg PO DAILY #90 tabs 11/18/24 02/21/25 Rx spironolactone 25 mg tablet 25 mg PO DAILY #90 tabs 11/18/24 02/21/25 Rx gemfibrozil 600 mg tablet 600 mg PO DAILY #90 tabs 12/11/24 02/21/25 Rx omeprazole 40 mg capsule,delayed 40 mg PO DAILY #90 caps 12/24/24 02/21/25 Rx release clindamycin phosphate 1 % topical 1 applic topical BID 21 days #60 02/21/25 02/21/25 Rx gel grams nitrofurantoin 1 cap PO Q12H 02/21/25 02/21/25 History monohydrate/macrocrystals 100 mg capsule Home Medication Comments: Patient does not know her medications. She tells me her daughter sets her medications up on Mondays in a pillbox Allergies Allergy/AdvReac Type Severity Reaction Status Date / Time fenofibrate Allergy Intermediate elevated Verified 02/21/25 08:11 transaminases potassium chloride Allergy Intermediate pruritis Verified 02/21/25 08:11 cefdinir Allergy Unknown decreased Verified 02/21/25 08:11 appetite, weight loss, diarrhea losartan AdvReac Intermediate pruritis Verified 02/21/25 08:11 Sulfamethoxazole / AdvReac Unknown nausea and Uncoded 02/21/25 08:11 trimethoprim vomiting Exam Narrative: Exam Narrative: She is alert and appears in no distress. She is able to give some history but is very uncertain about the events of last night and unable to give much detail beyond that noted above. She does not know her medications. She is oriented to being in the hospital. Head is notable for a bruise over the left occiput put. This is tender to palpate. No other obvious trauma. No facial asymmetry. Extraocular movements are full. Pupils are equal round reactive to light. Visual elias are intact. Oropharynx with dry mucous membranes. Otherwise normal. Neck is supple without mass or adenopathy. Respirations are clear to auscultation without wheezing rales or rhonchi. Cardiovascular: S1, S2, regular tachycardia. No murmur gallop or rub. Abdomen: Bowel sounds active. Abdomen is soft without tenderness or mass. External genitalia normal extremities with intact pulses and no edema. Hands and feet are mildly cool to touch and somewhat sluggish capillary refill. She moves her extremities symmetrically but has generalized weakness consistent with her loss of muscle mass and appearance of mild cachexia. Wafobs-wtvl-xdutgw and heel-vicente are normal. She has a very mild fine tremor in her hands when they are extended. Const: Vital Signs, click to edit/add: Vital Signs - 24 hr 03/02/25 12:11 03/02/25 12:14 03/02/25 12:15 Temperature 98.6 F Pulse Rate 88 90 Pulse Rate [Right Pulse Oximeter] 88 Respiratory Rate 16 18 19 Blood Pressure Blood Pressure [Ri ght Upper Arm] 121/80 Pulse Oximetry 91 96 98 Oxygen Delivery Me thod Room Air 03/02/25 12:30 03/02/25 12:32 03/02/25 12:45 Temperature Pulse Rate 88 87 88 Pulse Rate [Right Pulse Oximeter] Respiratory Rate 24 20 24 Blood Pressure 132/91 H Blood Pressure [Ri ght Upper Arm] Pulse Oximetry 98 100 98 Oxygen Delivery Me thod 03/02/25 13:00 03/02/25 13:03 03/02/25 14:06 Temperature Pulse Rate 87 90 88 Pulse Rate [Right Pulse Oximeter] Respiratory Rate 23 22 Blood Pressure 149/86 H 150/83 H Blood Pressure [Ri ght Upper Arm] Pulse Oximetry 99 97 95 Oxygen Delivery Me thod 03/02/25 14:07 03/02/25 14:15 03/02/25 14:30 Temperature Pulse Rate 88 91 86 Pulse Rate [Right Pulse Oximeter] Respiratory Rate 22 22 Blood Pressure Blood Pressure [Ri ght Upper Arm] Pulse Oximetry 98 97 97 Oxygen Delivery Me thod 03/02/25 14:32 03/02/25 14:45 03/02/25 15:00 Temperature Pulse Rate 87 82 90 Pulse Rate [Right Pulse Oximeter] Respiratory Rate 21 20 20 Blood Pressure 130/96 H Blood Pressure [Ri ght Upper Arm] Pulse Oximetry 98 97 97 Oxygen Delivery Me thod 03/02/25 15:01 03/02/25 15:15 03/02/25 15:30 Temperature Pulse Rate 91 95 102 H Pulse Rate [Right Pulse Oximeter] Respiratory Rate 20 19 14 Blood Pressure 135/82 Blood Pressure [Ri ght Upper Arm] Pulse Oximetry 95 94 91 Oxygen Delivery Me thod 03/02/25 15:32 03/02/25 15:45 03/02/25 16:00 Temperature Pulse Rate 99 99 102 H Pulse Rate [Right Pulse Oximeter] Respiratory Rate 18 23 25 H Blood Pressure 126/78 Blood Pressure [Ri ght Upper Arm] Pulse Oximetry 93 95 98 Oxygen Delivery Me thod 03/02/25 16:01 03/02/25 17:04 Temperature 99.8 F H Pulse Rate 100 Pulse Rate [Right Pulse Oximeter] Respiratory Rate 25 H Blood Pressure 133/77 Blood Pressure [Ri ght Upper Arm] Pulse Oximetry 95 Oxygen Delivery Me thod Documenting provider has reviewed patient's vital signs: yes Hospitalist - H&P: Result Labs Labs: Short CBC 03/02/25 Range/Units 12:50 WBC 12.49 H (4.50-11.00) K/uL Hgb 14.7 (12.0-16.0) gm/dL Hct 40.5 (33.0-51.0) % Plt Count 209 (140-440) K/uL BMP 03/02/25 12:50 Sodium 127 L Potassium 4.7 Chloride 98 Carbon Dioxide 17 L BUN 33 H Creatinine 1.1 Glucose 176 H Calcium 9.3 Cardiac Enzymes 03/02/25 Range/Units 12:50 Total Creatine Kinase 58 (41-117) U/L Troponin I < 0.01 (0.01-0.04) ng/mL Liver Function 03/02/25 Range/Units 12:50 Total Bilirubin 1.3 (0.1-1.5) mg/dL AST 35 (12-35) U/L ALT 24 (4-35) U/L Alkaline Phosphatase 97 (40-150) U/L Albumin 4.2 (3.3-5.0) g/dL Urine 03/02/25 Range/Units 14:45 Urine Color Yellow (Yellow) Urine Appearance Clear (Clear) Urine pH 6.5 (5.0-8.5) Ur Specific Minto 1.015 (1.000-1.030) Urine Protein Negative (Negative) Urine Glucose (UA) Negative (Negative) Imaging CT Chest/Ab/Pelvis: Radiologist's impression: INDICATION: Fall. Pain. TECHNIQUE: Axial intravenously infused CT cuts were performed from the thoracic inlet to the below the ischial tuberosities with the infusion of 53 mL of Isovue-370. Maximum intensity projection images were included of the lungs. FINDINGS: There is no pulmonary contusion or pneumothorax. There are two 6 mm nodules at the right lung base (for example see image 66 series 12). There no nodules or masses the are suspicious for malignancy. There are no pleural or pericardial fluid collections. There are no enlarged hilar, mediastinal or axial lymph nodes. There is no mediastinal hematoma. The thoracic inlet appears normal. No rib fractures are identified. There is a 9 mm nonobstructive calculus of the left kidney. The right kidney appears normal. There are few liver cysts. The spleen, pancreas and adrenals appear normal. There is no free intraperitoneal air or fluid. There are no enlarged retroperitoneal or mesenteric lymph nodes. The colon and small bowel appear normal. The appendix cannot be identified with certainty. There are no pericecal inflammatory changes. There has been a hysterectomy. The urinary bladder appears normal. There is no iliac or inguinal lymphadenopathy. There are mild superior endplate compression fractures of L1 and L2 favored to be of an acute nature. The pedicles and posterior elements are intact. IMPRESSION: 1. No traumatic abnormality within the chest. 2. Mild superior endplate compression fractures L1 and L2 favored be an acute nature. 3. There is a 9 mm nonobstructive calculus within the left kidney. CT scan - head: Radiologist's impression: INDICATION: Fall, pain TECHNIQUE: Noncontrast axial CT of the head. Coronal and sagittal reformats. Bone and soft tissue algorithms. COMPARISON: CT head 11/04/2024 FINDINGS: Patient motion artifact degrades image quality and limits evaluation. Left parietal scalp hematoma. No convincing evidence for acute skull fracture or intracranial hemorrhage. Generalized cerebral volume loss. No midline shift, hydrocephalus or herniation. Grossly preserved kilgore-white matter differentiation. Partially empty sella configuration. Calcific intracranial atherosclerotic plaquing. 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 No mastoid effusion. Bilateral lens implants. IMPRESSION: 1. Left parietal scalp hematoma. 2. No convincing evidence of skull fracture or acute intracranial hemorrhage given extensive artifact from patient motion.
[2025-03-02] MEDS: MAGNESIUM IV 4 GM/100 ML PIGGYBACK IVPB (17:57)
[2025-03-02] MEDS: 5 % DEXTROSE IN LAC RINGER'S 1,000 ML 75 ML IV (19:38)
[2025-03-02] MEDS: MAGNESIUM OXIDE 400 MG TABLET PO (21:20)
[2025-03-02 22:29] LABS: Chloride* 93 mmol/L (96-114)
[2025-03-02 22:30] LABS: Potassium* 3.6 mmol/L (3.6-5.1)
[2025-03-02 22:32] LABS: Blood Urea Nitrogen* 32 mg/dL (7-30); Creatinine* 1.0 mg/dL (0.5-1.5); Estimated Glomerular Filt Rate 56 ml/min
[2025-03-02 22:33] LABS: Anion Gap 10 mEq/L (7-15); Calcium* 8.3 mg/dL (8.4-10.6); Carbon Dioxide* 18 mmol/L (20-32); Glucose* 203 mg/dL (60-115)
[2025-03-02 22:44] LABS: Sodium* 121 mmol/L (135-149)
[2025-03-03] VITALS (8 sets, daily range): BP systolic 98–111; BP diastolic 51–84; PULSE 68–91; RESP 16–18; TEMP 36.6–36.9; O2SAT 94–100; BMI 20.5
--- NOTE | 2025-03-03 01:44 | PC.NURSE ---
Patient admitted today from ED. Patient up with one to two assist and gait belt pivoting to commode at bedside. Patient has received magnesium and fluids as ordered and is on a 1.5 liter fluid restriction. Skin care performed after voiding and barrier cream applied for excoriation. Patient has C/O some sharp and jagged teeth as well as tooth pain in which she has been going to the dentist for. Lotion applied to extremities d/t extreme dryness. bed alarm on for safety. PIV to right AC patent.
[2025-03-03] MEDS: LEVOTHYROXINE 50 MCG TABLET PO (06:23)
[2025-03-03 06:50] LABS: Hematocrit* 30.1 % (33.0-51.0); Hemoglobin* 11.0 gm/dL (12.0-16.0); Immature Granulocytes Abs Auto 0.02 K/uL (0.00-0.30); Immature Granulocytes Pct Auto 0.2 %; Mean Corpuscular HGB Conc 37 gm/dL (32-36); Mean Corpuscular Hemoglobin 35 pg (26-34); Mean Corpuscular Volume 95 fL (80-100); RDW Coefficient of Variation % 11.3 % (11.5-15.5); Red Blood Count* 3.16 m/uL (4.00-5.20); White Blood Count* 8.08 K/uL (4.50-11.00)
[2025-03-03 07:01] LABS: Lymphocytes Absolute Auto 1.40 K/uL (0.90-2.90); Slide Review Reflex No
[2025-03-03 07:15] LABS: Ammonia* < 8.7 umol/L (13.1-30.0)
[2025-03-03] MEDS: CETIRIZINE HCL 10 MG TABLET PO (07:36)
[2025-03-03 07:57] LABS: Chloride* 99 mmol/L (96-114); Potassium* 3.6 mmol/L (3.6-5.1); Sodium* 127 mmol/L (135-149)
[2025-03-03 07:59] LABS: Blood Urea Nitrogen* 27 mg/dL (7-30); Creatinine* 0.9 mg/dL (0.5-1.5); Estimated Glomerular Filt Rate 64 ml/min
[2025-03-03 08:00] LABS: Anion Gap 6 mEq/L (7-15); Calcium* 8.1 mg/dL (8.4-10.6); Carbon Dioxide* 22 mmol/L (20-32); Glucose* 122 mg/dL (60-115)
[2025-03-03] MEDS: 5 % DEXTROSE IN LAC RINGER'S 1,000 ML 75 ML IV (08:47)
[2025-03-03] MEDS: SODIUM CHLORIDE 0.9 % (FLUSH) 10 ML SYRINGE 5 ML IVF (08:47)
[2025-03-03] MEDS: OMEPRAZOLE 20 MG CAPSULE DR 40 MG PO (08:47)
--- NOTE | 2025-03-03 10:01 | P.NUTASMT_ITS ---
Hospital Nutrition Assessment Patient Data Patient Gender: Female Patient Age: 84 Height: 160.02 cm Weight: 52.73 kg Body Mass Index: 20.5 Weight Calculations [place] Body Weight (lbs): 115.00 [place] Body Weight (kg): 52.16 Percent of [place] Body Weight: 101 Adjusted Body Weight (lbs): 115.31 Adjusted Body Weight (kg): 52.30 Basal Energy Expenditure (BEE): 1071.96 Basal Energy Expenditure (BEE) Adjusted Weight: 1067.85 Activity/Stress Factors Injury Factor/Activity Factor Value: 1.2 Total Energy Requirements Kcal requirements (current wt): 1286.352 Kcal requirements (adj wt): 1281.420 Protein Need (current wt): 1.0 Total Protein (current wt): 52.730 Protein Need (adj wt): 1.0 Total Protein (adj wt): 52.300 Fluid Need (current wt): 30 Total Fluid (current wt): 1581.900 Fluid Need (adj wt): 30 Total Fluid (adj wt): 1569.00 Nutrition Assessment Diet Order: Regular Food Modified for Dysphagia: 7-Regular Liquid Modified for Dysphagia: 0-Thin Diet Order Comment: 1500 mL Fluid Restriction Allergies: NKFA Appetite Prior to Admission: Poor Appetite and Intake: 100% x2 since admit Comment: She drinks Ensure at home. Hx Appetite Changes: No (Has been poor months prior to arrival) Hx Weight Loss: Yes (5 lbs loss noted within 6 months, not significant weight loss) Hx Weight Gain: No Nausea: No Vomiting: No Diarrhea: No Hx Constipation: No Chewing Difficulty: No Swallowing Difficulty: No Diagnosis/Symptom or Procedure: Fall Clinical History: Medical history includes but not limited to Cognitive impairment, Generalized weakness, Alcohol use disorder, and Hypothyroidism. Current Living Situation: Lives alone. Medications Medications: reviewed. Lab Results Lab Results: reviewed. Education Dietary Topic: High Calorie/High Protein Topic Comment: Offered diet education to patient related to weight loss and poor appetite, however she declined at this time. Assessment/Plan PES Statement: Unintentional weight loss related to poor appetite and intakes as evidenced by 2.4 kg loss within 6 months, not significant. Nutritional Assessment Summary: RDN with MD consult related to malnutrition. Visited with patient whom reports her appetite has been poor since her passes away. She finds it difficult to cook for only one person. Her daughter helps provide meals for her which she reports has been helping her eat more. She utilizes Ensure at home, 1-2 daily. Recently her weight has been as low as 107 lbs. She reports lately her weight has been around 110 lbs. Note: Weight on admit in ER is stated at 49 kg. Offered her oral nutrition supplements such as Ensure Enlive, Magic Cup, Premier Protein. She declined at this time. I encouraged her to let staff know if she has questions or would like a supplement. Discharge Plan-Living Situation: TBD Goals: Adequate oral intakes of 50%+ meals. No s/s dehydration. Plan/Recommendation: Regular diet with fluid restriction per MD order. RDN will continue to monitor and follow-up prn. Malnutrition Assessment Current Energy Intake: Less Than 75% Estimated Timeframe Of Energy Intake: Greater Than Or Equal To 3 Months Weight Changes: Unable To Determine (Weight loss per weight records has been about 2.4 kg within 6 months which is not significant loss. ) Recommended Malnutrition Diagnosis: Unable To Determine and Further Physical Evaluation Required By MD To Determine
[2025-03-03] MEDS: LIDOCAINE 5% PATCH 1 PATCH TRANSDERMA (14:14)
--- NOTE | 2025-03-03 14:55 | PC.SOCIAL ---
Discharge planning: SW called patient's daughter and spoke with her to determine what services patient already has. Daughter states that she provides services for patient Monday-Monday for a few hours in the morning and evening, and then when she is gone during the day patient typically watches TV and naps. Daughter states that she does patients meal prep and cooking, laundry, cleaning, heavy lifting, assistance with dressing, and ensures her mom does her PT exercises she was given when she had home care PT last admission. Daughter states that patient also has 5 or 6 neighbors she is close with who will help patient if patient calls them. Daughter explains she and her brother have been trying to do everything to keep patient at home and have tried filing claims for more support through patient's LTC insurance, but have not had success. Daughter also explained that patient is particular about who she will allow into her house and who she will let provide care. Daughter reports that she is feeling frustrated that there hasn't been an answer found to what is going on with patient. Daughter states patient has a f/u with urology on 03/05 for her UTI. Daughter reports she isn't sure if there is dementia, but would be open to any f/u appts needed to determine if this is a concern. Daughter states right now she can't think of needs/support that SW can assist with. SW explained she would be in touch if there are any home care needs/services that are recommended that SW can assist with setting up. SW informed provider of all above information. SW to continue to support with discharge planning.
--- NOTE | 2025-03-03 16:09 | PM.IMPN1 ---
Assessment and Plan Assessment and plan (1) Accidental fall: Problem comment: Fall with loss of consciousness preceding or following head injury. will image her brain, get neuro consult, is this alcohol induced or seizure or strokes ... will work down a broader differential. Status: Acute (2) Closed head injury: Problem comment: With her fall and presumed loss of consciousness she had a closed head injury. concussion vs post-ictal Status: Acute (3) Altered mental status: Problem comment: According to the daughter she was quite altered this morning but improving as the day has gone on -clearing (post-ictal? delirium from fall/dehydration?) Status: Acute (4) Dehydration: Problem comment: Moderately dehydrated on admission 03/03 - resolved Status: Acute (5) Cognitive impairment: Problem comment: MOCA is 25/30; that fits with what I'm seeing clinically on 03/03 Status: Acute (6) Alcohol use disorder: Problem comment: daily wine drinking >2 glasses add MV/thiamine Uncertain what role this played in her fall and loss of consciousness. No history of withdrawal. CIWA protocol Daughter and patient have minimized daily alcohol use. Increased fall risk. Status: Acute (7) Generalized pain: Problem comment: Multiple areas of pain and evidence on exam of multiple areas of bruising particularly in the legs. Degenerative changes and old fractures on skeletal imaging Status: Acute (8) Generalized weakness: Problem comment: Probably acute on chronic. 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 Status: Acute (9) Fracture of lumbar spine: Problem comment: 12/25/24 L2-L3 endplate fracture after fall. radiology calls a new L1-L2 compression fracture; today she is complaining of sacral/low back pain. Status: Acute (10) Hypothyroidism: Status: Acute Subjective Date Seen: 03/03/25 Interval history: Daily Progress Note - Hospital Medicine Day #: 2 CC: fall, concussion, incomplete recall. 24 HOUR UPDATE: 84-year-old woman who lives alone, admitted yesterday after a fall. She was found down in her home. She was pretty foggy yesterday and could not remember much. She feels more clear today and she said the last thing she remembers is getting up in the morning on the day of admission, yesterday March 02, and kneeling to get something out of the base of her board mixer tender. The next thing she realized she was sitting up next to the board mixer tender and had trouble standing. She had a large bruise on her left temporal skull, her tailbone was tender and she was confused. Overnight her white blood cell count normalized from 12.5 down to 8. Her hemoglobin is back to baseline. Her sodium has jumped up and down. Her renal function is normal. Her glucose is mildly elevated at 122. Her magnesium is now in the normal range She does have a mildly suspicious UA with 1+ leukocyte esterase 5-10 white blood cells. Culture is pending. I have reviewed all the imaging and I do note that she has likely a new L1 to L2 compression fracture, she also has a left scalp hematoma and a left kidney stone. Notable Labs, Micro, Rads, Interventions: Reviewed as above Objective: Alert. Follow the conversation and interject her thoughts. Vitals: see above Scalp: large tangerine size ecchymoses, more flat today than yesterday. Hematoma seems to be resolving. Lungs: Clear. Cardiac: S1S2. Neuro: Cognitively much sharper. Rate of speech and word-finding seems normal. Disposition/Potential discharge - Today I spent 50minutes seeing the patient, reviewing Expanse and EPIC notes/diagnostics, discussing the care plan with our care time that includes social work, PT/OT, pharmacy, RT, long term and documenting my impressions and plan in the medical record. Exam Const: Vital Signs, click to edit/add: Vital Signs - 24 hr 03/02/25 16:15 03/02/25 16:30 03/02/25 16:32 Temperature Pulse Rate 99 102 H 107 H Pulse Rate [Pulse Oximeter] Respiratory Rate 10 L 20 24 Blood Pressure 115/73 Blood Pressure [Ri ght Arm] Pulse Oximetry 95 97 95 Oxygen Delivery Me thod 03/02/25 16:45 03/02/25 17:00 03/02/25 17:02 Temperature Pulse Rate 99 Pulse Rate [Pulse Oximeter] Respiratory Rate 17 18 Blood Pressure 119/79 Blood Pressure [Ri ght Arm] Pulse Oximetry 96 Oxygen Delivery Me thod 03/02/25 17:04 03/02/25 17:53 03/02/25 17:53 Temperature 99.8 F H 98.2 F Pulse Rate Pulse Rate [Pulse Oximeter] 91 Respiratory Rate 16 16 Blood Pressure Blood Pressure [Ri ght Arm] 117/74 Pulse Oximetry 98 98 Oxygen Delivery Me thod Room Air Room Air 03/02/25 19:00 03/02/25 22:41 03/02/25 22:55 Temperature 98.2 F 98.2 F Pulse Rate 85 Pulse Rate [Pulse Oximeter] 88 90 Respiratory Rate 16 14 Blood Pressure Blood Pressure [Ri ght Arm] 98/65 98/59 L Pulse Oximetry 98 92 Oxygen Delivery Me thod Room Air Room Air 03/02/25 23:00 03/03/25 03:00 03/03/25 07:00 Temperature 98.4 F Pulse Rate Pulse Rate [Pulse Oximeter] 90 91 71 Respiratory Rate 14 16 16 Blood Pressure Blood Pressure [Ri ght Arm] 111/51 L Pulse Oximetry 97 Oxygen Delivery Me thod Room Air 03/03/25 07:00 03/03/25 07:00 03/03/25 11:00 Temperature 97.9 F 97.9 F Pulse Rate 69 Pulse Rate [Pulse Oximeter] 71 68 Respiratory Rate 16 16 Blood Pressure Blood Pressure [Ri ght Arm] 110/84 107/69 Pulse Oximetry 100 99 Oxygen Delivery Me thod Room Air Room Air Labs Labs: Laboratory Results - last 24 hr 03/02/25 03/02/25 03/03/25 21:55 22:10 06:32 WBC 8.08 RBC 3.16 L Hgb 11.0 L Hct 30.1 L MCV 95 MCH 35 H MCHC 37 H RDW Coeff of Michelle 11.3 L Plt Count 143 Neut % (Auto) 76.5 H Lymph % (Auto) 17.0 L [place] % (Auto) 5.8 Eos % (Auto) 0.4 Baso % (Auto) 0.1 Neut # (Auto) 6.20 Lymph # (Auto) 1.40 [place] # (Auto) 0.50 Eos # (Auto) 0.03 Baso # (Auto) 0.01 Abs Immat Gran (auto) 0.02 Imm/Tot Granulo (auto) 0.2 Sodium 121 L* 127 L Potassium 3.6 3.6 Chloride 93 L 99 Carbon Dioxide 18 L 22 Anion Gap 10 6 L BUN 32 H 27 Creatinine 1.0 0.9 Estimated GFR 56 64 Glucose 203 H 122 H Calcium 8.3 L 8.1 L Magnesium 3.2 H 2.3 Ammonia < 8.7 L Lab Acknowledgement Test Added
[2025-03-03 17:16] LABS: Chloride* 102 mmol/L (96-114); Potassium* 3.3 mmol/L (3.6-5.1); Sodium* 127 mmol/L (135-149)
[2025-03-03 17:19] LABS: Anion Gap 6 mEq/L (7-15); Blood Urea Nitrogen* 20 mg/dL (7-30); Calcium* 8.0 mg/dL (8.4-10.6); Carbon Dioxide* 19 mmol/L (20-32); Creatinine* 0.8 mg/dL (0.5-1.5); Estimated Glomerular Filt Rate 74 ml/min; Glucose* 91 mg/dL (60-115)
[2025-03-03] MEDS: SODIUM CHLORIDE 1 GM TABLET PO (17:50)
--- NOTE | 2025-03-03 18:26 | PC.NURSE ---
End of shift: patient a/o, VSS on RA tolerating a reg diet. Patient ambulating sba to br and to chair for meals. Lidocaine patch applied to lower back. Patient tolerating 1500 fluid restriction. MRI w/o contrast scheduled for tomorrow, tele Neuro to follow after MRI is completed.
[2025-03-04] VITALS (7 sets, daily range): BP systolic 97–113; BP diastolic 58–71; PULSE 69–78; RESP 14–18; TEMP 36.3–36.7; O2SAT 95–99
[2025-03-04] MEDS: SODIUM CHLORIDE 0.9 % (FLUSH) 10 ML SYRINGE 5 ML IVF ×3 (02:14→21:33)
[2025-03-04] MEDS: LEVOTHYROXINE 50 MCG TABLET PO (05:53)
--- NOTE | 2025-03-04 06:32 | PC.NURSE ---
end of shift: Pt. is AOX4. Pt. is forgetful. Afebrile. VSS. Pt. AMB IND in room and performs cares IND. 1500 FL restriction. Pt. reports itching and has blotchy spots on back and front of chest; Benadryl given- see EMAR. Peripheral IV dressing changed. IV is patent and secure.
[2025-03-04 06:43] LABS: Hematocrit* 28.5 % (33.0-51.0); Hemoglobin* 10.4 gm/dL (12.0-16.0); Immature Granulocytes Abs Auto 0.02 K/uL (0.00-0.30); Immature Granulocytes Pct Auto 0.3 %; Mean Corpuscular HGB Conc 37 gm/dL (32-36); Mean Corpuscular Hemoglobin 35 pg (26-34); Mean Corpuscular Volume 97 fL (80-100); RDW Coefficient of Variation % 11.6 % (11.5-15.5); Red Blood Count* 2.94 m/uL (4.00-5.20); White Blood Count* 5.83 K/uL (4.50-11.00)
[2025-03-04 06:45] LABS: Lymphocytes Absolute Auto 1.10 K/uL (0.90-2.90); Slide Review Reflex No
[2025-03-04 07:01] LABS: Chloride* 105 mmol/L (96-114); Potassium* 3.3 mmol/L (3.6-5.1)
[2025-03-04 07:04] LABS: Blood Urea Nitrogen* 23 mg/dL (7-30); Calcium* 7.9 mg/dL (8.4-10.6); Carbon Dioxide* 21 mmol/L (20-32); Creatinine* 0.7 mg/dL (0.5-1.5); Estimated Glomerular Filt Rate 86 ml/min; Glucose* 96 mg/dL (60-115)
[2025-03-04 07:46] LABS: Anion Gap 7 mEq/L (7-15); Sodium* 133 mmol/L (135-149)
[2025-03-04] MEDS: OMEPRAZOLE 20 MG CAPSULE DR 40 MG PO (09:01)
[2025-03-04] MEDS: SODIUM CHLORIDE 1 GM TABLET PO ×3 (09:01→17:49)
--- NOTE | 2025-03-04 12:48 | CRLHL7_ITS ---
For Patients: As a result of the Cures Act, medical imaging exams and procedure reports are released immediately into your electronic medical record. You may view this report before your referring provider. If you have questions, please contact your health care provider. Indication: Altered mental status. Technique: Multiplanar, multisequence MRI of the brain was performed without intravenous contrast. Comparison: CT head 03/02/2025. Findings: Slight thinning of the corpus callosum. The pituitary gland and close appear intact. Moderate degenerative change visualized upper cervical spine. There is a small, 5 mm focus of restricted diffusion along left lateral parietal cortex/sulcus. There is associated T2 and FLAIR hyperintensity. Small focus of chronic microhemorrhage left posterior temporal lobe. The ventricles are proportionate to the cerebral sulci. The 4th ventricle appears midline. The basal cisterns appear patent. No abnormal extra-axial fluid collection identified. Moderate parenchymal volume loss. Moderate scattered T2 FLAIR hyperintense foci within the subcortical and periventricular white matter, favored to represent chronic ischemic microvascular disease. There is no intracranial mass, abnormal mass-effect or midline shift identified. Major intracranial vascular flow voids appear grossly intact. Thinning of the ocular lenses. Left superficial parietal scalp contusion. Impression: 1. Small focus of restricted diffusion along left lateral parietal sulcus/convexity with associated T2 and FLAIR hyperintensity. This could represent an acute/subacute infarct or contusion associated with recent trauma. 2. Moderate chronic ischemic microvascular disease. 3. Small focus of chronic microhemorrhage left posterior temporal lobe. Dictated by Carlos Meraz MD @ 03/04/2025 8:40:53 AM (Electronically Signed)
[2025-03-04] MEDS: LIDOCAINE 5% PATCH 1 PATCH TRANSDERMA (13:35)
--- NOTE | 2025-03-04 14:21 | CT_ITS ---
Patient: DOUGLAS PINON Facility:?[facility] Patient ID:?[id number] Site Patient ID:?[id number]. Site :?[id number] Study:?CT-Head Angio W/95CC [id number]/21/2025 4:48:50 PM Ordering Physician:Kirby Gongora Final Report: DATE: 03/04/2025 CLINICAL HISTORY: Patient with focal neurological deficits. TECHNIQUE: Standard helical CT image acquisition through the head and neck was performed after intravenous contrast bolus enhancement. 2D and 3D MIP images for post- processing were performed and interpreted on an independent workstation and 3D images were permanently archived. COMPARISON: CT same day. FINDINGS: The origins of the great vessels from the aortic arch are patent. The origin of the right vertebral artery is patent. The origin of the left vertebral artery is patent. The common carotid arteries are patent There is no stenosis at the origin of the right internal carotid artery by NASCET criteria. There is a mild (less than 50%) stenosis at the origin of the left internal carotid artery by NASCET criteria. This is caused by calcified plaque with a greater than 2mm residual lumen. The rest of the cervical segments of the internal carotid arteries are patent up to their intracranial segments. The intracranial segments of the internal carotid arteries are patent. The right vertebral artery is dominant. The cervical segments of the vertebral arteries are patent. The intracranial segments of the vertebral arteries are patent. The middle cerebral arteries are normal without aneurysm or proximal occlusion identified. The anterior cerebral arteries are normal without aneurysm or proximal occlusion identified. The anterior communicating artery is well visualized and appears normal. The basilar artery is normal without aneurysm or occlusion. The posterior cerebral arteries are normal without aneurysm or proximal occlusion. There is normal opacification of major intracranial venous structures. The visualized lung apices are unremarkable The thyroid gland is unremarkable. The soft tissues of the neck are unremarkable. There are degenerative changes in the cervical spine. IMPRESSION: 1. No proximal intracranial large vessel occlusion. 2. Mild (less than 50%) stenosis at the origin of the left internal carotid artery by NASCET criteria. This is caused by calcified plaque with a greater than 2mm residual lumen. Please note that all CT scans at this facility use dose modulation, iterative reconstruction, and/or weight-based dosing when appropriate to reduce radiation dose to as low as reasonably achievable. Dictated by Alejandro Asencio MD @ 03/04/2025 6:17:30 PM (Electronic Signature)
--- NOTE | 2025-03-04 14:21 | CT_ITS ---
Patient: DOUGLSA PINON Facility:?[facility] Patient ID:?[id number] Site Patient ID:?[id number]. Site :?[id number] Study:?CT-Neck Angio Angio ALL IMAGING ON ANGIO HEAD-03/04/2025 4:50:34 PM Ordering Physician:Kirby Gongora Final Report: DATE: 03/04/2025 CLINICAL HISTORY: Patient with focal neurological deficits. TECHNIQUE: Standard helical CT image acquisition through the head and neck was performed after intravenous contrast bolus enhancement. 2D and 3D MIP images for post- processing were performed and interpreted on an independent workstation and 3D images were permanently archived. COMPARISON: CT same day. FINDINGS: The origins of the great vessels from the aortic arch are patent. The origin of the right vertebral artery is patent. The origin of the left vertebral artery is patent. The common carotid arteries are patent There is no stenosis at the origin of the right internal carotid artery by NASCET criteria. There is a mild (less than 50%) stenosis at the origin of the left internal carotid artery by NASCET criteria. This is caused by calcified plaque with a greater than 2mm residual lumen. The rest of the cervical segments of the internal carotid arteries are patent up to their intracranial segments. The intracranial segments of the internal carotid arteries are patent. The right vertebral artery is dominant. The cervical segments of the vertebral arteries are patent. The intracranial segments of the vertebral arteries are patent. The middle cerebral arteries are normal without aneurysm or proximal occlusion identified. The anterior cerebral arteries are normal without aneurysm or proximal occlusion identified. The anterior communicating artery is well visualized and appears normal. The basilar artery is normal without aneurysm or occlusion. The posterior cerebral arteries are normal without aneurysm or proximal occlusion. There is normal opacification of major intracranial venous structures. The visualized lung apices are unremarkable The thyroid gland is unremarkable. The soft tissues of the neck are unremarkable. There are degenerative changes in the cervical spine. IMPRESSION: 1. No proximal intracranial large vessel occlusion. 2. Mild (less than 50%) stenosis at the origin of the left internal carotid artery by NASCET criteria. This is caused by calcified plaque with a greater than 2mm residual lumen. Please note that all CT scans at this facility use dose modulation, iterative reconstruction, and/or weight-based dosing when appropriate to reduce radiation dose to as low as reasonably achievable. Dictated by Alejandro Asencio MD @ 03/04/2025 6:18:12 PM (Electronic Signature)
[2025-03-04] MEDS: ASPIRIN 81 MG TAB.CHEW 324 MG PO (14:35)
[2025-03-04] MEDS: CETIRIZINE HCL 10 MG TABLET PO (14:35)
--- NOTE | 2025-03-04 15:48 | P.IMPN_ITS ---
Assessment and Plan Assessment and plan (1) Acute ischemic left MCA stroke: Problem comment: -appreciate neuro consult -CTA, Echo, Telemetry, Aspirin 81mg Status: Acute (2) Accidental fall: Problem comment: Fall with loss of consciousness preceding head injury. Likely stroke induced Status: Acute (3) Closed head injury: Problem comment: With her fall and presumed loss of consciousness she had a closed head injury. -patient improving daily Status: Acute (4) Cognitive impairment: Problem comment: MOCA is 25/30; that fits with what I'm seeing clinically on 03/03 Status: Acute (5) Alcohol use disorder: Problem comment: daily wine drinking >2 glasses add MV/thiamine Uncertain what role this played in her fall and loss of consciousness. No history of withdrawal. CIWA protocol Daughter and patient have minimized daily alcohol use. Increased fall risk. Status: Acute (6) Generalized pain: Problem comment: Multiple areas of pain and evidence on exam of multiple areas of bruising particularly in the legs. Degenerative changes and old fractures on skeletal imaging Status: Acute (7) Generalized weakness: Problem comment: Probably acute on chronic. 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 Status: Acute (8) Fracture of lumbar spine: Problem comment: 12/25/24 L2-L3 endplate fracture after fall. radiology calls a new L1-L2 compression fracture; today she is complaining of sacral/low back pain. Status: Acute (9) Hypothyroidism: Status: Acute Subjective Date Seen: 03/04/25 Interval history: Daily Progress Note - Hospital Medicine Day #: 3 CC: fall, concussion, incomplete recall. 24 HOUR UPDATE: -speech back to normal. feeling stronger. -MR shows a new CVA on the left lateral parietal sulcus - likely explaining the fall, aphasia, weakness -beside neuro evaluation completed -plan: aspirin, CTA of head and neck, echo, cardiac monitoring Notable Labs, Micro, Rads, Interventions: CBC is essentially stable. No concerns. Platelets are down a little bit to 130, hemoglobin is down a little bit to 10.4 from a baseline of about 11. Sodium has improved. Potassium is still a little low. Renal function is normal. Magnesium is drifting down but still in the normal range. Urine culture was negative Objective: Alert. Follow the conversation and interject her thoughts. Vitals: see above Scalp: large tangerine size ecchymoses, more flat today than yesterday. Hematoma seems to be resolving. Lungs: Clear. Cardiac: S1S2. Neuro: Cognitively much sharper. Rate of speech and word-finding seems normal. Disposition/Potential discharge - Likely home 03/05 Today I spent 50minutes seeing the patient, reviewing Expanse and EPIC notes/diagnostics, discussing the care plan with our care time that includes social work, PT/OT, pharmacy, RT, [facility] and documenting my impressions and plan in the medical record. Exam Const: Vital Signs, click to edit/add: Vital Signs - 24 hr 03/03/25 20:27 03/03/25 23:00 03/03/25 23:34 Temperature 98.0 F 98.1 F Pulse Rate Pulse Rate [Pulse Oximeter] 81 76 76 Respiratory Rate 16 18 18 Blood Pressure [Ri ght Arm] 101/66 103/65 Pulse Oximetry 99 94 Oxygen Delivery Me thod Room Air Room Air 03/04/25 03:21 03/04/25 07:00 03/04/25 07:00 Temperature 98.0 F 97.4 F L Pulse Rate Pulse Rate [Pulse Oximeter] 71 78 78 Respiratory Rate 14 16 16 Blood Pressure [Ri ght Arm] 100/62 97/58 L Pulse Oximetry 95 99 Oxygen Delivery Me thod Room Air Room Air 03/04/25 07:00 03/04/25 11:00 03/04/25 14:43 Temperature 97.6 F Pulse Rate 69 Pulse Rate [Pulse Oximeter] 71 77 Respiratory Rate 16 14 Blood Pressure [Ri ght Arm] 112/71 Pulse Oximetry 99 Oxygen Delivery Me thod Room Air 03/04/25 14:43 Temperature 97.6 F Pulse Rate Pulse Rate [Pulse Oximeter] 77 Respiratory Rate 14 Blood Pressure [Ri ght Arm] 100/60 Pulse Oximetry 98 Oxygen Delivery Me thod Room Air Labs Labs: Laboratory Results - last 24 hr 03/03/25 03/04/25 16:45 06:15 WBC 5.83 RBC 2.94 L Hgb 10.4 L Hct 28.5 L MCV 97 MCH 35 H MCHC 37 H RDW Coeff of Michelle 11.6 Plt Count 130 L Neut % (Auto) 77.3 H Lymph % (Auto) 18.2 L [place] % (Auto) 3.9 Eos % (Auto) 0.3 Baso % (Auto) 0.0 Neut # (Auto) 4.50 Lymph # (Auto) 1.10 [place] # (Auto) 0.20 Eos # (Auto) 0.02 Baso # (Auto) 0.00 Abs Immat Gran (auto) 0.02 Imm/Tot Granulo (auto) 0.3 Sodium 127 L 133 L Potassium 3.3 L 3.3 L Chloride 102 105 Carbon Dioxide 19 L 21 Anion Gap 6 L 7 BUN 20 23 Creatinine 0.8 0.7 Estimated GFR 74 86 Glucose 91 96 Calcium 8.0 L 7.9 L Magnesium 1.7
--- NOTE | 2025-03-04 18:03 | PC.NURSE ---
End of shift: patient a/o, VSS, on RA tolerating a reg diet. Patient ambulating indep. in room with 4ww to BR and chair. Up to chair for meals. denies N/V/SOB. denies pain, lidocaine patch applied to lower back. Patient reports itching, RN noted hives on back and front of trunk area, neck, arms and legs. MD notified. Zyrtec administered w/relief. Patient had ECCO completed, CT w/contrast and neuro consult. Plan, discharge to home tomorrow with 28 day ZIO patch.
[2025-03-04] MEDS: MAGNESIUM OXIDE 400 MG TABLET PO (21:33)
[2025-03-05 04:28] VITALS: BP 92/54; PULSE 83; RESP 20; TEMP 36.4; O2SAT 98
--- NOTE | 2025-03-05 05:42 | PC.NURSE ---
shift note: Pt. is AOx4. Pt. able to express needs & is pleasant & cooperative. Pt. up to chair IND.
[2025-03-05] MEDS: LEVOTHYROXINE 50 MCG TABLET PO (05:52)
[2025-03-05 06:37] LABS: Hematocrit* 32.6 % (33.0-51.0); Hemoglobin* 11.8 gm/dL (12.0-16.0); Immature Granulocytes Abs Auto 0.05 K/uL (0.00-0.30); Immature Granulocytes Pct Auto 0.7 %; Mean Corpuscular HGB Conc 36 gm/dL (32-36); Mean Corpuscular Hemoglobin 35 pg (26-34); Mean Corpuscular Volume 97 fL (80-100); RDW Coefficient of Variation % 11.6 % (11.5-15.5); Red Blood Count* 3.36 m/uL (4.00-5.20); White Blood Count* 6.99 K/uL (4.50-11.00)
[2025-03-05 06:43] LABS: Lymphocytes Absolute Auto 1.10 K/uL (0.90-2.90); Slide Review Reflex No
[2025-03-05 06:45] LABS: Chloride* 104 mmol/L (96-114); Sodium* 135 mmol/L (135-149)
[2025-03-05 06:46] LABS: Potassium* 3.6 mmol/L (3.6-5.1)
[2025-03-05 06:48] LABS: Blood Urea Nitrogen* 16 mg/dL (7-30); Creatinine* 0.7 mg/dL (0.5-1.5); Estimated Glomerular Filt Rate 86 ml/min
[2025-03-05 06:49] LABS: Anion Gap 9 mEq/L (7-15); Calcium* 8.4 mg/dL (8.4-10.6); Carbon Dioxide* 22 mmol/L (20-32); Glucose* 94 mg/dL (60-115)
[2025-03-05 07:00] VITALS: BP 121/78; PULSE 70; RESP 16; TEMP 36.3; O2SAT 99
[2025-03-05] MEDS: CETIRIZINE HCL 10 MG TABLET PO ×2 (07:18→13:02)
[2025-03-05 08:12] LABS: Cholesterol* 105 mg/dL (90-199); HDL Cholesterol* 47 mg/dL (>=50); Triglycerides* 61 mg/dL (40-149)
[2025-03-05] MEDS: CLOPIDOGREL 75 MG TABLET PO (09:30)
[2025-03-05] MEDS: MAGNESIUM OXIDE 400 MG TABLET PO (09:30)
[2025-03-05] MEDS: SODIUM CHLORIDE 0.9 % (FLUSH) 10 ML SYRINGE 5 ML IVF (09:31)
[2025-03-05] MEDS: OMEPRAZOLE 20 MG CAPSULE DR 40 MG PO (09:31)
[2025-03-05 11:00] VITALS: BP 129/69; PULSE 75; RESP 16; TEMP 36.3; O2SAT 98
--- NOTE | 2025-03-05 15:30 | PC.NURSE ---
Discharge: VSS on RA tolerating a reg diet. pt is pleasant and cooperative. afebrile this shift. Zio patch applied and educated on its use. Patient denies N/V/SOB. allergic reaction to face much better after second dose of Zyrtec. MD aware. Patient discharged today at 1430 accompanied by dtr to home. Discharge instructions given and signed patient verbalized understanding. Belongings sheet signed. IV removed tip intact.
--- NOTE | 2025-03-05 17:04 | P.DS_ITS ---
DS: Providers Provider Date Seen: 03/05/25 Date of admission: 03/03/25 08:58 Primary care physician: Rosio Houston CNP Admitting Clinician: Connor Dee MD Consults: 03/02/25 17:43 Consult to Nutrition [CONS] Routine Comment: Reason for consult:: Nutritional Consult Consult to Occupational Therapy [CONS] Routine Comment: Reason(s) for OT Consult:: Evaluate and Treat Any Restrictions?:: No Restrictions Comment: [place] Consult to Physical Therapy [CONS] Routine Comment: Reason(s) for PT Consult:: Evaluate and Treat Any Restrictions?:: No Restrictions Consult to Surveyor Helper [CONS] Routine Comment: Reason for Consult:: Discharge Planning Needs Attending Physician on discharge: Fransisca Mott MD [facility] Date of Discharge: 03/05/25 DS: Diagnosis Discharge Diagnosis (1) Acute ischemic left MCA stroke: Status: Acute Problem details: ASSESSMENT: 1) Diagnosis: Stroke Diagnosis List: Acute Ischemic stroke (distal L MCA) 2) Etiology: Suspect atheroembolic in the setting of an ulcerate <50% L ICA stenosis (no need for urgent revascularization, outpatient vascular surgery follow up is ok) 3) Risk factor profile as reviewed with patient (and caregiver): High Blood Pressure Tobacco, former Age - Greater than 55 years old RECOMMENDATIONS AT DISCHARGE: Antithrombotic plan for secondary prevention: Plavix 75 mg daily for 3 months (no ASA due to allergic reaction) Blood pressure: normotension Extended outpatient cardiac monitoring: External, 14 days, if negative DO NOT proceed with LINQ (site can only do 14 days) If outpatient monitoring finds afib/flutter, plan is anticoagulation Additional workup or follow up: follow up with outpatient vascular surgery Intensive statin therapy recommendations: Intensive statin therapy recommendations LIST: Yes, atorvastatin 40 mg Rehabilitation interventions as indicated. Sleep Apnea: Exercise: Daily aerobic > 30 minutes as tolerated. Prevention strategies as above. Outpatient clinic follow up: Follow-up with stroke clinic in 1 month: Please place an ambulatory consult to neurology discharge order and choose vascular (stroke/tia) as the service We will sign off. Please contact the [facility] if there are any questions. . Discussed with Dr. Mott. (2) Aspirin-induced urticaria with angioedema: Status: Acute Problem details: plavix monotherapy -updated allergy list (3) Accidental fall: Status: Acute Problem details: Fall with loss of consciousness preceding head injury. Likely stroke induced (4) Closed head injury: Status: Acute Problem details: With her fall and presumed loss of consciousness she had a closed head injury. -patient improving daily (5) Cognitive impairment: Status: Acute Problem details: MOCA is 25/30; that fits with what I'm seeing clinically on 03/03 (6) Alcohol use disorder: Status: Acute Problem details: daily wine drinking >2 glasses add MV/thiamine Uncertain what role this played in her fall and/or stroke; recommended lifelong sobriety. No history of withdrawal. CIWA protocol Daughter and patient have minimized daily alcohol use. Increased fall risk. (7) Generalized pain: Status: Acute Problem details: Multiple areas of pain and evidence on exam of multiple areas of bruising particularly in the legs. Degenerative changes and old fractures on skeletal imaging (8) Generalized weakness: Status: Acute Problem details: Probably acute on chronic. 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 (9) Fracture of lumbar spine: Status: Acute Problem details: 12/25/24 L2-L3 endplate fracture after fall. radiology calls a new L1-L2 compression fracture; today she is complaining of sacral/low back pain. (10) Hypothyroidism: Status: Acute (11) Osteopenia: Status: Acute (12) Hypertension: Status: Acute Problem details: resume atenolol and aldactone (13) Hyperlipidemia: Status: Acute Problem details: continue statin. hold gemfibrozil DS: Summary Hospital Course Hospital Course: QUESTIONS TO ASK AT FOLLOW-UP: 1. Have you made arrangements for f/u with the [facility] stroke/vascular clinics? 2. Are you taking the plavix daily? 3. Any more swelling/hives? Remember aspirin is an allergy for you. 4. Any new falls, concerning stroke symptoms? (weakness, facial droop, memory lapses, falls?) 5. You are a social wine drinker? Have you tried not drinking or cutting back? BRIEF HOSPITAL COURSE: Patient was admitted for 4 days. Synopsis of acute inpatient issues are outlined above. Chronic medical conditions with notable findings outlined above. Tray was found [place]. When and how she went down is undetermined. We determined she had a left MCA distribution acute stroke. Her neuro symptoms which mostly included aphasia, confusion and weakness were rapidly improving by discharge. Unfortunately when we started aspirin, the patient developed acute hives including lip swelling and facial orbital hives. We have held that going forward. We appreciate the telemedicine Neurology consult and coordination. We presumed that this stroke is atheroembolic from findings on the CTA, right carotid artery. She was in normal sinus rhythm throughout her stay. Her echocardiogram was unremarkable. Her EKG was unremarkable. We placed a ZioPatch and recommended follow-up with both PCP, [facility] a stroke and vascular clinics as an outpatient. We did increase her atorvastatin from 10 mg to 40 mg. We discharged her on Plavix. I did send 3 days of prednisone to help complete treatment for her acute hives. I also sent her home on a magnesium supplement. We also recommended lifetime sobriety given these new findings. DISCHARGE MEDICATIONS: See Reconciled list - SIGNIFICANT CHANGES: Short burst of prednisone Plavix 75 daily No aspirin Increased atorvastatin to 40 mg Magnesium supplement Specific instructions to the patient and follow-up are outlined below. REVIEW OF SYSTEMS No new chest pain or dyspnea Pain controlled No voiding difficulties Tolerating diet challenge + I have PHYSICAL EXAM: CONSTITUTIONAL: Conversive, good historian. A/O. Knows setting and context. GENERAL: Well-developed at ideal body weight, in no respiratory distress. VITAL SIGNS: see record. HEENT: Sclerae are anicteric. No petechiae. CARDIAC: rhythm is regular. There is no S3 or rub. No harsh murmurs. Extremities show trace edema with symmetrical pulses. PULM: good air entry with no wheeze. NEURO: Speech is fluent. A brief neurologic exam is negative. SKIN: Resolving facial edema and periorbital hives PSYCHIATRIC: Euthymic. DISPOSITION: Home with daughter Time spent on discharge 37 minutes. Status at Discharge Functional status at discharge: uses cane/walker Overall status at discharge: patient is progressing back to baseline Time Spent with Patient Time attestation: Total time spent providing and/or coordinating discharge services: Time spent: Greater than 30 minutes Exam Const: Vital Signs, click to edit/add: Vital Signs - 24 hr 03/04/25 19:48 03/04/25 20:12 03/04/25 20:12 Temperature 97.6 F Pulse Rate 74 74 Pulse Rate [Pulse Oximeter] 77 Respiratory Rate 14 Blood Pressure [Ri ght Arm] 113/66 Pulse Oximetry 98 Oxygen Delivery Me thod Room Air 03/04/25 23:16 03/04/25 23:16 03/05/25 04:28 Temperature 97.5 F L 97.6 F Pulse Rate Pulse Rate [Pulse Oximeter] 77 76 83 Respiratory Rate 16 18 20 Blood Pressure [Ri ght Arm] 108/69 92/54 L Pulse Oximetry 98 98 Oxygen Delivery Me thod Room Air Room Air 03/05/25 07:00 03/05/25 07:00 03/05/25 11:00 Temperature 97.4 F L 97.4 F L Pulse Rate Pulse Rate [Pulse Oximeter] 70 70 75 Respiratory Rate 16 16 16 Blood Pressure [Ri ght Arm] 121/78 129/69 Pulse Oximetry 99 98 Oxygen Delivery Me thod Room Air Room Air DS: Data Data Completed and Pending Labs on day of discharge: Labs from last 24 hours 03/05/25 03/05/25 07:49 05:58 WBC 6.99 RBC 3.36 L Hgb 11.8 L Hct 32.6 L MCV 97 MCH 35 H MCHC 36 RDW Coeff of Michelle 11.6 Plt Count 174 Neut % (Auto) 80.6 H Lymph % (Auto) 15.6 L Storey % (Auto) 2.7 Eos % (Auto) 0.4 Baso % (Auto) 0.0 Neut # (Auto) 5.60 Lymph # (Auto) 1.10 Storey # (Auto) 0.20 Eos # (Auto) 0.03 Baso # (Auto) 0.00 Abs Immat Gran (auto) 0.05 Imm/Tot Granulo (auto) 0.7 Sodium 135 Potassium 3.6 Chloride 104 Carbon Dioxide 22 Anion Gap 9 BUN 16 Creatinine 0.7 Estimated GFR 86 Glucose 94 Hemoglobin A1c 5.1 Calcium 8.4 Magnesium 1.5 Triglycerides 61 Cholesterol 105 LDL Cholesterol, Calc 46 HDL Cholesterol 47 L Lab Acknowledgement Test Added Discharge Plan Discharge Disposition: Home, Self-Care Date of Admission: 03/03/25 08:58 Attending Provider on Discharge: Fransisca Mott Primary Care Provider: Rosio Houston Condition: Stable Anticipated Discharge Date/Time: 03/05/25 13:41 Discharge Medications: New magnesium oxide 400 mg (241.3 mg magnesium) Tablet 400 mg PO BID Qty: 60 0RF clopidogrel 75 mg Tablet 75 mg PO DAILY Qty: 30 0RF atorvastatin [Lipitor] 40 mg tablet 40 mg PO DAILY Qty: 30 0RF prednisone 20 mg tablet 20 mg PO DAILY Qty: 3 0RF Rx Instructions: one tab daily for three days if needed for hives Continued Macular Vitamin 500-5-1 mcg-mg-mg tablet 1 tab PO BID levothyroxine 50 mcg tablet 50 mcg PO DAILY Qty: 90 0RF clindamycin phosphate 1 % gel 1 applic topical BID 21 Days Qty: 60 0RF vitamin B complex-folic acid [B Complex 1 (with folic acid)] 0.4 mg tablet 1 tab PO DAILY atenolol 25 mg tablet 25 mg PO DAILY Qty: 90 1RF spironolactone 25 mg tablet 25 mg PO DAILY Qty: 90 1RF omeprazole 40 mg capsule,delayed release(DR/EC) 40 mg PO DAILY Qty: 90 1RF Discontinued gemfibrozil 600 mg tablet 600 mg PO DAILY Qty: 90 3RF Discharge Orders: Discharge Order (Routine); Ordered 03/05/25 Ordered By: Fransisca Mott Patient Education: Prednisone (By mouth), Atorvastatin (By mouth), Clopidogrel (By mouth), Magnesium Oxide (By mouth), Ischemic Stroke (DC), Zio (Home Heart Monitor) Additional Instructions: Aspirin is now listed as an allergy we will not have you take both gemfibrozil and Lipitor take Plavix every day take the prednisone (starting tomorrow, as we discussed) We need Rosio Houston to get you referred to Vascular Surgery (likely thru [facility]) and Stroke Neurology (Thru [facility]) for f/u in the coming weeks. Mail back the ZioPatch as directed. Rosio will have those results about a week after you send it back. She will decide if there is anything to do with the results. Activity Level: Activity as Tolerated Discharge Diet: Regular Follow Up Appointments: Rosio Houston DEMO SPECIALIST [Primary Care Provider, Family Practice] - 03/07/25 10:45 am Referral Note: [facility] for hospital follow[facility]. [facility] Inst[facility]
== END 2025-03-05 14:30 | disposition home or self-care (01) | DRG 65 ==
LOC: ED 16:22 → MEDSURG 17:41
PROVIDERS: Family Medicine; Admitting Provider Family Medicine; Emergency Provider Student in an Organized Health Care Education/Training Program; PCP Nurse Practitioner Family; Visit Provider Family Medicine
DX: I63.412 Cerebral infarction due to embolism of left middle cerebral artery (principal); E46 Unspecified protein-calorie malnutrition; S32.020A Wedge compression fracture of second lumbar vertebra, initial encounter for closed fracture; S32.030A Wedge compression fracture of third lumbar vertebra, initial encounter for closed fracture; E87.1 Hypo-osmolality and hyponatremia; R47.01 Aphasia; I63.512 Cerebral infarction due to unspecified occlusion or stenosis of left middle cerebral artery; E83.42 Hypomagnesemia; R29.700 NIHSS score 0; S00.03XA Contusion of scalp, initial encounter; W19.XXXA Unspecified fall, initial encounter; M62.50 Muscle wasting and atrophy, not elsewhere classified, unspecified site; F10.10 Alcohol abuse, uncomplicated; Z68.20 Body mass index [BMI] 20.0-20.9, adult; E86.0 Dehydration; I10 Essential (primary) hypertension; T78.3XXA Angioneurotic edema, initial encounter; T39.015A Adverse effect of aspirin, initial encounter; Z88.6 Allergy status to analgesic agent; M85.80 Other specified disorders of bone density and structure, unspecified site; E78.5 Hyperlipidemia, unspecified; E03.9 Hypothyroidism, unspecified
CPT/HCPCS: 36415; 70450; 70496; 70498; 70551; 71260; 72125; 72128; 72131; 73080; 73110; 73562; 74177; 80048; 80053; 80061; 81001; 82077; 82140; 82550; 82565; 83036; 83735; 84484; 85025; 87086; 87631; 93005; 93306; 97161; 97165; 97535; 99285; A9270; G0378; J1100; J1200; J3475; J7030; Q9967

== ENCOUNTER 2025-03-07 11:49 | Outpatient (CLI) | payer MEDICARE, BC, SELFPAY | END 2025-03-07 11:50 | disposition home or self-care (01) | PROVIDERS: PCP Nurse Practitioner Family; Visit Provider Nurse Practitioner Family | DX: E03.9 Hypothyroidism, unspecified (principal); I63.512 Cerebral infarction due to unspecified occlusion or stenosis of left middle cerebral artery; R79.0 Abnormal level of blood mineral | CPT/HCPCS: 80053; 83735; 84443 ==

== ENCOUNTER 2025-04-28 14:18 | Outpatient (CLI) | payer MEDICARE, BC, SELFPAY | END 2025-04-28 14:19 | disposition home or self-care (01) | LOC: NFLDREF 05-01 11:15 | PROVIDERS: PCP Nurse Practitioner Family; Referring Provider Nurse Practitioner Family; Visit Provider Nurse Practitioner Family | DX: E83.42 Hypomagnesemia (principal) | CPT/HCPCS: 83735 ==